=== PATIENT | female | born 1945 | race African-American/Black ===

== ENCOUNTER 2017-02-20 09:00 | Emergency (ER) | payer MEDICARE ==
[2017-02-20 09:10] VITALS: TEMP 98; BMI 40.3
[2017-02-20] MEDS ORDERED: predniSONE 20 MG TABLET (UD) PO ONE (09:52)
[2017-02-20] MEDS ORDERED: ALBUTEROL SO4 0.083% IH SOL 2.5 MG/3 ML VIAL.NEB. NEB ONE (09:52)
[2017-02-20] MEDS ORDERED: SODIUM CHLORIDE 1,000 ML IV STA (09:52)
[2017-02-20] MEDS ORDERED: ACETAMINOPHEN 325 MG TABLET (FP) PO ONE (09:52)
[2017-02-20] MEDS ORDERED: IPRATROPIUM BR 0.02% 0.5 MG/2.5 ML VIAL.NEB. NEB ONE (09:52)
--- NOTE | 2017-02-20 10:13 | PDOC ---
History of Present Illness - General History Source: Patient Exam Limitations: No Limitations - History of Present Illness Initial Comments: 02/20/17 10:24 The patient is a 71 year old female, with a significant past medical history of HTN, HLD, NIDDM, GERD, diverticulitis, CKD, COPD / asthma and AFIB (on Xarelto) , who presents to the emergency department with body cramping for the past 6 months and congestion. She describes her cramping as intermittently diffused throughout her body. She notes that it has worsened since yesterday, now localized on her hands bilaterally. She denies any recent change in her medications. She attributes her congestion to her asthma and seasonal allergies. She denies any exacerbation of her cramping due to her asthma. The patient denies chest pain, shortness of breath, headache and dizziness. Denies fever, chills, nausea, vomit, diarrhea and constipation. Denies dysuria, frequency, urgency and hematuria. Allergies: Shellfish and lactose Past surgical history: Partial hysterectomy Social history: No alcohol, tobacco or drug use reported PMD - Dr. Pam Rodríguez <Chay Currie - Last Filed: 02/20/17 10:36> - General History Source: Patient, Old Records Exam Limitations: No Limitations <Neftali Salmon - Last Filed: 02/20/17 11:55> - General Chief Complaint: Cold Symptoms Stated Complaint: CRAMPING, CONGESTION Time Seen by Provider: 02/20/17 09:39 Past History <Chay Currie - Last Filed: 02/20/17 10:36> - Past Medical History Asthma: Yes Cardiac Disorders: Yes (intermittent atrial fibrillation) COPD: Yes CHF: No Diabetes: Yes GI Disorders: Yes (diverticulitis, and GERD) Disorders: No HTN: Yes Hypercholesterolemia: Yes Suicide Attempt (Hx): No - Surgical History Abdominal Surgery: Yes (partial hysterectomy) Appendectomy: No Cholecystectomy: No - Immunization History Immunization Up to Date: Yes - Psycho/Social/Smoking Cessation Hx Anxiety: No Suicidal Ideation: No Smoking Status: Yes Smoking History: Never smoked Have you smoked in the past 12 months: No Number of Cigarettes Smoked Daily: 0 If you are a former smoker, when did you quit?: Over 45 years ago Information on smoking cessation initiated: No Hx Alcohol Use: No Drug/Substance Use Hx: No Substance Use Type: None Hx Substance Use Treatment: No <Neftali Salmon - Last Filed: 02/20/17 11:55> - Past Medical History Allergies/Adverse Reactions: Allergies Allergy/AdvReac Type Severity Reaction Status Date / Time shellfish derived Allergy Severe Swelling Verified 02/20/17 09:07 lactose Allergy Mild Verified 02/20/17 09:07 Home Medications: Ambulatory Orders Aspirin [ASA -] 81 mg PO DAILY 05/16/12 Montelukast Na [Singulair -] 10 mg PO HS 05/16/12 Amiodarone HCl [Cordarone -] 100 mg PO DAILY #1 11/22/12 Glimepiride [Amaryl -] 2 mg PO DAILY 09/27/13 Multivitamin [Multivitamins] 1 each PO DAILY 12/13/13 Levalbuterol HCl [Xopenex] 0.31 mg IH PRN PRN #0 vial.neb. 12/16/13 Albuterol 0.083% Nebulizer Patricia [Ventolin 0.083% Nebulizer Soln -] 1 neb NEB PRN 03/07/16 Fluticasone Propionate [Flovent Diskus] 250 mcg IH DAILY 03/07/16 Rivaroxaban [Xarelto -] 20 mg PO DAILY 03/07/16 Simvastatin [Zocor -] 20 mg PO HS 03/07/16 Bimatoprost [Lumigan] 1 drop OS HS 09/20/16 Garlic [Odorless Garlic] 1,000 mg PO DAILY 09/20/16 Losartan/Hydrochlorothiazide [Losartan-Hctz 100-25 mg Tab] 1 each PO DAILY 09/20 Albuterol Sulfate Inhaler - [Ventolin HFA Inhaler -] 1 - 2 inh PO Q4H PRN #1 inhaler 02/20/17 Amlodipine Besylate 5 mg PO DAILY 02/20/17 Prednisone [Deltasone] 60 mg PO DAILY #12 tablet 02/20/17 Review of Systems - Review of Systems Able to Perform ROS?: Yes Comments:: 02/20/17 10:25 GENERAL/CONSTITUTIONAL: (+) Body cramping. No fever or chills. No weakness. HEAD, EYES, EARS, NOSE AND THROAT: No change in vision. No ear pain or discharge. No sore throat. CARDIOVASCULAR: No chest pain or shortness of breath RESPIRATORY: (+) Congestion) No cough, wheezing, or hemoptysis. GASTROINTESTINAL: No nausea, vomiting, diarrhea or constipation. GENITOURINARY: No dysuria, frequency, or change in urination. MUSCULOSKELETAL: No joint or muscle swelling or pain. No neck or back pain. SKIN: No rash NEUROLOGIC: No headache, vertigo, loss of consciousness, or change in strength/ sensation. ENDOCRINE: No increased thirst. No abnormal weight change HEMATOLOGIC/LYMPHATIC: No anemia, easy bleeding, or history of blood clots. ALLERGIC/IMMUNOLOGIC: No hives or skin allergy. <Chay Currie - Last Filed: 02/20/17 10:36> *Physical Exam - Vital Signs Last Vital Signs Temp Pulse Resp BP Pulse Ox 98 F 65 18 151/81 99 02/20/17 09:07 02/20/17 09:07 02/20/17 09:07 02/20/17 09:07 02/20/17 09:07 - Physical Exam Comments: 02/20/17 10:25 GENERAL: Awake, alert, and fully oriented, in no acute distress HEAD: No signs of trauma, normocephalic, atraumatic EYES: PERRLA, EOMI, sclera anicteric, conjunctiva clear ENT: Auricles normal inspection, hearing grossly normal, nares patent, oropharynx clear without exudates. Moist mucosa NECK: Normal ROM, supple, no lymphadenopathy, JVD, or masses LUNGS: (+) Mild expiratory wheezing. No distress, speaks full sentences. HEART: Regular rate and rhythm, normal S1 and S2, no murmurs, rubs or gallops, peripheral pulses normal and equal bilaterally. ABDOMEN: Soft, nontender, normoactive bowel sounds. No guarding, no rebound. No masses EXTREMITIES: Normal inspection, Normal range of motion, no edema. No clubbing or cyanosis. NEUROLOGICAL: Cranial nerves II through XII grossly intact. Normal speech, normal gait, no focal sensorimotor deficits SKIN: Warm, Dry, normal turgor, no rashes or lesions noted. <Chay Currie - Last Filed: 02/20/17 10:36> - Vital Signs Last Vital Signs Temp Pulse Resp BP Pulse Ox 98 F 65 18 151/81 99 02/20/17 09:07 02/20/17 09:07 02/20/17 09:07 02/20/17 09:07 02/20/17 09:07 <Neftali Salmon - Last Filed: 02/20/17 11:55> Heart Score/ECG Review #1 ECG reviewed & interpreted by me at: 10:25 02/20/17 10:33 NSR 58, no std/malina, normal axis, normal intervals, no TWI, QTC 447 msec <Neftali Salmon - Last Filed: 02/20/17 11:55> ED Treatment Course - RADIOLOGY Radiograph Interpretation: 02/20/17 10:37 Chest X-Ray Reviewed by: Dr. Nick Majano Impression: No evidence of pneumonia, CHF or pneumothorax. Limited evaluation of the lung parenchyma in the left retrocardiac region. - Medications Given in the ED: ED Medications Discontinued Medications Generic Name Dose Route Start Last Admin Trade Name Freq PRN Reason Stop Dose Admin Acetaminophen 650 mg 02/20/17 09:52 02/20/17 10:06 Tylenol - PO 02/20/17 09:53 650 mg ONCE ONE Administration Albuterol Sulfate 1 amp 02/20/17 09:52 02/20/17 09:56 Ventolin 0.083% Nebulizer Soln - NEB 02/20/17 09:53 1 amp ONCE ONE Administration Ipratropium [place] 1 amp 02/20/17 09:52 02/20/17 09:56 Atrovent 0.02% Nebulizer - NEB 02/20/17 09:53 1 amp ONCE ONE Administration <Chay Currie - Last Filed: 02/20/17 10:36> - LABORATORY CBC & Chemistry Diagram: 02/20/17 10:24 02/20/17 10:24 - RADIOLOGY Radiology Studies Ordered: Category Date Time Status CHEST X-RAY PORTABLE* [RAD] Stat Radiology 02/20/17 09:52 Ordered - Medications Given in the ED: ED Medications Discontinued Medications Generic Name Dose Route Start Last Admin Trade Name Freq PRN Reason Stop Dose Admin Acetaminophen 650 mg 02/20/17 09:52 02/20/17 10:06 Tylenol - PO 02/20/17 09:53 650 mg ONCE ONE Administration Albuterol Sulfate 1 amp 02/20/17 09:52 02/20/17 09:56 Ventolin 0.083% Nebulizer Soln - NEB 02/20/17 09:53 1 amp ONCE ONE Administration Ipratropium [place] 1 amp 02/20/17 09:52 02/20/17 09:56 Atrovent 0.02% Nebulizer - NEB 02/20/17 09:53 1 amp ONCE ONE Administration <Neftali Salmon - Last Filed: 02/20/17 11:55> Medical Decision Making - Medical Decision Making 02/20/17 10:13 A portion of this note was documented by scribe services under my direction. I have reviewed the details of the note, within reason, and agree with the documentation with the following case summary and management plan written by me. Patient treated in the ED. Nursing notes are reviewed and incorporated into the medical decision-making. Vital signs reviewed. Peripheral IV access obtained by the nurse, laboratory studies are drawn and sent, reviewed and interpreted by myself. Vital Signs Temp Pulse Resp BP Pulse Ox 98 F 65 18 151/81 99 02/20/17 09:07 02/20/17 09:07 02/20/17 09:07 02/20/17 09:07 02/20/17 09:07 71 year old female with past medical history of hypertension, diabetes, hyperlipidemia, atrial fibrillation on his xarleto and amiodarone, asthma, arthritis presents with worsening total body cramps. Patient has a chronic history of total body cramping over the last 6 months that has progressively worsened in the last 2 days. Patient states that she is also concurrently having some wheezing from ALLERGIES secondary to her asthma. She has not taken any medications. She is not taking any medications for her cramping either. She reports it like a [email or web address] horse cramping pain. She has seen her primary care physician in the past but reports there was no acute interventions at that time. She denies chest pain, fevers, nausea, vomiting, diarrhea. Patient is having chronic pain that has acutely worsened. Her cramping may be secondary to touch like dysfunction or dehydration. We'll give Tylenol, IV fluids and check labs. Also noted is patient's wheezing. We'll give nebulizers, prednisone and obtain chest x-ray and reassess. 02/20/17 11:45 CBC, BMP 02/20/17 10:24 02/20/17 10:24 CMP Sodium 142 mmol/L (136-145) 02/20/17 10:24 Potassium 3.7 mmol/L (3.5-5.1) 02/20/17 10:24 Chloride 101 mmol/L (98-107) 02/20/17 10:24 Carbon Dioxide 31 mmol/L (21-32) 02/20/17 10:24 Anion Gap 10 (8-16) 02/20/17 10:24 BUN 17 mg/dL (7-18) 02/20/17 10:24 Creatinine 1.0 mg/dL (0.55-1.02) 02/20/17 10:24 Creat Clearance w eGFR 54.97 (>60) 02/20/17 10:24 Random Glucose 114 mg/dL (74-106) H 02/20/17 10:24 Calcium 8.9 mg/dL (8.5-10.1) 02/20/17 10:24 Magnesium 2.2 mg/dL (1.8-2.4) 02/20/17 10:24 Total Bilirubin 0.5 mg/dL (0.2-1.0) D 02/20/17 10:24 AST 15 U/L (15-37) 02/20/17 10:24 ALT 21 U/L (12-78) 02/20/17 10:24 Alkaline Phosphatase 61 U/L (45-117) 02/20/17 10:24 Creatine Kinase 245 IU/L (26-192) H D 02/20/17 10:24 CK-MB (CK-2) 1.115 ng/ml (0.5-3.6) 02/20/17 10:24 Troponin I 0.03 ng/ml (0.00-0.05) 02/20/17 10:24 Total Protein 6.8 g/dl (6.4-8.2) 02/20/17 10:24 Albumin 3.4 g/dl (3.4-5.0) 02/20/17 10:24 Patient's EKG, chest x-ray, lasting history no acute findings. We have discussed potential options such as her statins as being a potential source of her cramping. I advised patient to follow up with her primary care doctor regards to her medication interactions. Patient appears more comfortable with the IV fluids and Tylenol. At this time, we'll discharge his acute on chronic cramping pain. Patient otherwise understands and agrees with plan. Her wheezing improved as well. Will discharge with prednisone and albuterol. I discussed the physical exam findings, ancillary test results and final diagnoses with the patient. I answered all of the patient's questions. The patient was satisfied with the care received and felt comfortable with the discharge plan and treatment plan. The patient will call their primary care physician within 24 hours to arrange follow-up and will return to the Emergency Department with any new, persistant or worsening symptoms. 02/20/17 11:50 <Neftali Salmon - Last Filed: 02/20/17 11:55> *DC/Admit/Observation/Transfer - Attestations Scribe Attestion: 02/20/17 10:25 Documentation prepared by Chay Currie, acting as medical terminologist for Neftali Salmon MD <Chay Currie - Last Filed: 02/20/17 10:36> - Discharge Dispostion Admit: No <Neftali Salmon - Last Filed: 02/20/17 11:55> Diagnosis at time of Disposition: Cramping of hands Asthma Qualifiers: Asthma severity: unspecified severity Asthma complication type: with acute exacerbation Qualified Code(s): J45.901 - Unspecified asthma with (acute) exacerbation - Discharge Dispostion Disposition: HOME Condition at time of disposition: Stable - Prescriptions Prescriptions: Prednisone [Deltasone] 60 mg PO DAILY #12 tablet Albuterol Sulfate Inhaler - [Ventolin HFA Inhaler -] 1 - 2 inh PO Q4H PRN #1 inhaler PRN Reason: Wheezing - Referrals Referrals: Pam Dejesus MD [Primary Care Provider] - - Patient Instructions Printed Discharge Instructions: DI for Musculoskeletal Pain, DI for Asthma -- Adult Additional Instructions: Please drink plenty fluids and rest. Please review your medication lists with your doctor. Your EKG, blood work demonstrates no findings.
[2017-02-20 10:52] LABS: BASOPHIL 1.2 % (0-2.0); EOSINOPHIL 7.6 % (0-4.5); MCH 30.6 pg (25.7-33.7); MCHC 32.6 g/dl (32.0-36.0); MEAN CELL VOLUME 93.9 fl (80-96); MEAN PLT VOLUME 8.3 fl (7.5-11.1); NEUTROPHILS 57.7 % (42.8-82.8); PLATELET COUNT 221 K/MM3 (134-434); RDW 14.9 % (11.6-15.6); WHITE BLOOD COUNT 8.1 K/mm3 (4.0-10.0)
[2017-02-20 11:12] LABS: ALBUMIN 3.4 g/dl (3.4-5.0); CALCIUM 8.9 mg/dL (8.5-10.1); COCKROFT - GAULT 95.047; MAGNESIUM 2.2 mg/dL (1.8-2.4)
[2017-02-20 11:16] LABS: BILIRUBIN,TOTAL 0.5 mg/dL (0.2-1.0); TOT PROT 6.8 g/dl (6.4-8.2); TROPONIN I 0.03 ng/ml (0.00-0.05)
[2017-02-20 12:10] VITALS: BP 135/72; PULSE 67
--- NOTE | 2017-02-20 13:59 | EKG ---
Test Reason : Blood Pressure : / mmHG Vent. Rate : 058 BPM Atrial Rate : 058 BPM P-R Int : 158 ms QRS Dur : 090 ms QT Int : 456 ms P-R-T Axes : 049 -01 025 degrees QTc Int : 447 ms SINUS BRADYCARDIA OTHERWISE NORMAL ECG WHEN COMPARED WITH ECG OF 12-OCT-2016 07:36, NO SIGNIFICANT CHANGE WAS FOUND Confirmed by KEILY GENAO MD ([id number]) on 02/20/2017 1:58:55 PM Referred By: Confirmed By:KEILY GENAO MD
== END 2017-02-20 12:09 | disposition home or self-care (01) ==
LOC: JER 09:00
PROC: 3E0337Z Introduction of Electrolytic and Water Balance Substance into Peripheral Vein, Percutaneous Approach (ICD-10-PCS; principal; 2017-02-20)
PROC: 3E0F7GC Introduction of Other Therapeutic Substance into Respiratory Tract, Via Natural or Artificial Opening (ICD-10-PCS; 2017-02-20)
PROC: 3E0F7GC Introduction of Other Therapeutic Substance into Respiratory Tract, Via Natural or Artificial Opening (ICD-10-PCS; 2017-02-20)
DX: R25.2 Cramp and spasm (principal); J45.901 Unspecified asthma with (acute) exacerbation; E78.00 Pure hypercholesterolemia, unspecified; E11.9 Type 2 diabetes mellitus without complications; Z79.84 Long term (current) use of oral hypoglycemic drugs; K21.9 Gastro-esophageal reflux disease without esophagitis; N18.9 Chronic kidney disease, unspecified; J44.9 Chronic obstructive pulmonary disease, unspecified; I48.91 Unspecified atrial fibrillation; Z79.01 Long term (current) use of anticoagulants; I12.9 Hypertensive chronic kidney disease with stage 1 through stage 4 chronic kidney disease, or unspecified chronic kidney disease
CPT/HCPCS: 36415; 71010-TC; 80053; 82550; 82553; 83735; 84484; 85025; 93005; 93010; 94640; 96360; 99283-25

== ENCOUNTER → 2017-05-13 | Emergency (ER) | payer MEDICARE ==
[~2017-05-13] MED LIST: ALBUTEROL SO4 2.5/IPRATROPIUM 0.5 INH SOL 3 ML VIAL.NEB. NEB ONE; ONDANSETRON 4 MG/2 ML VIAL IVPUSH ONE; SODIUM CHLORIDE 1,000 ML IV STA
[2017-05-13 17:36] VITALS: BP 149/76; PULSE 67; TEMP 98.1; BMI 41.9
--- NOTE | 2017-05-13 18:12 | PDOC ---
History of Present Illness - General History Source: Patient, Family Exam Limitations: No Limitations - History of Present Illness Initial Comments: 05/13/17 18:58 The patient is a 72 year old female, with significant past medical history of hypertension, hyperlipidemia, NIDDM, GERD, diverticulitis, chronic kidney disease, COPD, asthma, and Afib (on Xarelto), who presents today complaining of a couple of days of intermittent muscle and body aches. The patient describes the aches as a crampy feeling starting from her neck to her toes. She notes that the aches became constant since noon today, approximately 6 hours ago. The patient took magnesium and potassium this afternoon with mild relief. The patient also notes that her asthma has been acting up and she has a productive cough with clear mucous. She reports RUQ abdominal cramping and notes that she experienced some nausea and vomiting last week, which had since resolved. She explains that the body aches are an ongoing issue that has been addressed by her PCP, Dr. Pam Rodríguez, who took her off Simvastatin for 3 weeks. This provided no relief and the patient resumed taking the Simvastatin. Denies fever, chills, nausea, vomiting. Denies chest pain, palpitations. Denies urinary changes. Denies skin rashes Allergies: shellfish, lactose Surgical Hx: partial hysterectomy Social Hx: No tobacco use. No alcohol use. No recreational drug use. PCP- Dr. Pam Rodríguez Documentation Writer: Dr. [place] 05/13/17 19:00 <Domenica Coelho - Last Filed: 05/13/17 19:00> <Tiffanie Mcintosh - Last Filed: 05/14/17 03:02> <Yasmin Alvarado - Last Filed: 05/14/17 23:45> - General Chief Complaint: Muscle Cramping Stated Complaint: BODY CRAMPS Time Seen by Provider: 05/13/17 17:57 Past History <Domenica Coelho - Last Filed: 05/13/17 19:00> <Tiffanie Mcintosh - Last Filed: 05/14/17 03:02> - Past Medical History Asthma: Yes Cardiac Disorders: Yes (intermittent atrial fibrillation) COPD: Yes CHF: No Diabetes: Yes GI Disorders: Yes (diverticulitis, and GERD) Disorders: No HTN: Yes Hypercholesterolemia: Yes Suicide Attempt (Hx): No - Surgical History Abdominal Surgery: Yes (partial hysterectomy) Appendectomy: No Cholecystectomy: No - Immunization History Immunization Up to Date: Yes - Psycho/Social/Smoking Cessation Hx Anxiety: No Suicidal Ideation: No Smoking Status: Yes Smoking History: Former smoker Have you smoked in the past 12 months: No Number of Cigarettes Smoked Daily: 0 If you are a former smoker, when did you quit?: Over 45 years ago Information on smoking cessation initiated: No Hx Alcohol Use: No Drug/Substance Use Hx: No Substance Use Type: None Hx Substance Use Treatment: No <Yasmin Alvarado - Last Filed: 05/14/17 23:45> - Past Medical History Allergies/Adverse Reactions: Allergies Allergy/AdvReac Type Severity Reaction Status Date / Time shellfish derived Allergy Severe Swelling Verified 05/13/17 17:33 lactose Allergy Mild Verified 05/13/17 17:33 Home Medications: Ambulatory Orders Aspirin [ASA -] 81 mg PO DAILY 05/16/12 Montelukast Na [Singulair -] 10 mg PO HS 05/16/12 Amiodarone HCl [Cordarone -] 100 mg PO DAILY #1 11/22/12 Glimepiride [Amaryl -] 4 mg PO DAILY 09/27/13 Multivitamin [Multivitamins] 1 each PO DAILY 12/13/13 Levalbuterol HCl [Xopenex] 0.31 mg IH PRN PRN #0 vial.neb. 12/16/13 Albuterol 0.083% Nebulizer Patricia [Ventolin 0.083% Nebulizer Soln -] 1 neb NEB PRN 03/07/16 Fluticasone Propionate [Flovent Diskus] 250 mcg IH DAILY 03/07/16 Rivaroxaban [Xarelto -] 20 mg PO DAILY 03/07/16 Simvastatin [Zocor -] 20 mg PO HS 03/07/16 Bimatoprost [Lumigan] 1 drop OS HS 09/20/16 Garlic [Odorless Garlic] 1,000 mg PO DAILY 09/20/16 Losartan/Hydrochlorothiazide [Losartan-Hctz 100-25 mg Tab] 1 each PO DAILY 09/20 Albuterol Sulfate Inhaler - [Ventolin HFA Inhaler -] 1 - 2 inh PO Q4H PRN #1 inhaler 02/20/17 Amlodipine Besylate 5 mg PO DAILY 02/20/17 Prednisone [Deltasone] 60 mg PO DAILY #12 tablet 02/20/17 Review of Systems - Review of Systems Able to Perform ROS?: Yes Comments:: 05/13/17 18:58 GENERAL/CONSTITUTIONAL: No fever or chills. No weakness. HEAD, EYES, EARS, NOSE AND THROAT: No change in vision. No ear pain or discharge. No sore throat. CARDIOVASCULAR: No chest pain or shortness of breath. RESPIRATORY: +productive cough with clear sputum. No wheezing, or hemoptysis. GASTROINTESTINAL: +RUQ abdominal cramping. No nausea, vomiting, diarrhea or constipation. GENITOURINARY: No dysuria, frequency, or change in urination. MUSCULOSKELETAL: +diffuse muscle and body aches. SKIN: No rash NEUROLOGIC: No headache, vertigo, loss of consciousness, or change in strength/ sensation. ENDOCRINE: No increased thirst. No abnormal weight change. HEMATOLOGIC/LYMPHATIC: No anemia, easy bleeding, or history of blood clots. ALLERGIC/IMMUNOLOGIC: No hives or skin allergy. <Domenica Coelho - Last Filed: 05/13/17 19:00> *Physical Exam - Vital Signs Last Vital Signs Temp Pulse Resp BP Pulse Ox 98.1 F 67 18 149/76 100 05/13/17 17:33 05/13/17 17:33 05/13/17 17:33 05/13/17 17:33 05/13/17 17:33 <Domenica Coelho - Last Filed: 05/13/17 19:00> - Vital Signs Last Vital Signs Temp Pulse Resp BP Pulse Ox 98.1 F 67 18 149/76 100 05/13/17 17:33 05/13/17 17:33 05/13/17 17:33 05/13/17 17:33 05/13/17 17:33 <Tiffanie Mcintosh - Last Filed: 05/14/17 03:02> - Vital Signs Last Vital Signs Temp Pulse Resp BP Pulse Ox 98.1 F 67 18 149/76 100 05/13/17 17:33 05/13/17 17:33 05/13/17 17:33 05/13/17 17:33 05/13/17 17:33 - Physical Exam Comments: GENERAL: Awake, alert, and fully oriented, in no acute distress. Obese. HEAD: No signs of trauma EYES: PERRLA, EOMI, sclera anicteric, conjunctiva clear ENT: Auricles normal inspection, hearing grossly normal, nares patent, oropharynx clear without exudates. Moist mucosa NECK: Normal ROM, supple, no lymphadenopathy, JVD, or masses LUNGS: Breath sounds equal, clear to auscultation bilaterally. No wheezes, and no crackles HEART: Regular rate and rhythm, normal S1 and S2, no murmurs, rubs or gallops ABDOMEN: Soft, nontender, normoactive bowel sounds. No guarding, no rebound. No masses EXTREMITIES: Normal range of motion, no edema. No clubbing or cyanosis. No cords, erythema. Mild B/L calf tenderness (chronic and unchanged per patient). NEUROLOGICAL: Cranial nerves II through XII grossly intact. Normal speech, normal gait SKIN: Warm, Dry, normal turgor, no rashes or lesions noted. <Yasmin Alvarado - Last Filed: 05/14/17 23:45> ED Treatment Course - LABORATORY CBC & Chemistry Diagram: 05/13/17 18:42 05/13/17 18:42 <Domenica Coelho - Last Filed: 05/13/17 19:00> - LABORATORY CBC & Chemistry Diagram: 05/13/17 18:42 05/14/17 01:55 - ADDITIONAL ORDERS Additional order review: Laboratory Results 05/14/17 05/14/17 05/13/17 01:55 01:55 21:13 Sodium 142 Potassium 4.1 Chloride 103 Carbon Dioxide 30 Anion Gap 9 BUN 13 D Creatinine 0.9 Creat Clearance w eGFR Random Glucose 180 H D Calcium 8.3 L Magnesium Total Bilirubin AST ALT Alkaline Phosphatase Creatine Kinase 862 H Creatine Kinase Index 0.2 CK-MB (CK-2) 2.155 Total Protein Albumin TSH Urine Color Lt. yellow Urine Appearance Clear Urine pH 5.5 Urine Protein Negative Urine Glucose (UA) Negative Urine Ketones Negative Urine Blood Negative Urine Nitrite Negative Urine Bilirubin Negative Urine Urobilinogen 0.2 Ur Leukocyte Esterase Negative 05/13/17 18:42 Sodium 138 Potassium 3.5 Chloride 100 Carbon Dioxide 31 Anion Gap 7 L BUN 17 Creatinine 1.0 Creat Clearance w eGFR 54.81 Random Glucose 100 Calcium 9.2 Magnesium 2.3 Total Bilirubin 0.4 AST 17 ALT 23 Alkaline Phosphatase 72 Creatine Kinase 1008 H Creatine Kinase Index 0.2 CK-MB (CK-2) 2.474 Total Protein 7.4 Albumin 3.7 TSH 0.95 Urine Color Urine Appearance Urine pH Urine Protein Urine Glucose (UA) Urine Ketones Urine Blood Urine Nitrite Urine Bilirubin Urine Urobilinogen Ur Leukocyte Esterase 05/13/17 18:42 RBC 4.33 MCV 90.2 MCHC 33.2 RDW 15.2 MPV 8.7 Neutrophils % 67.2 Lymphocytes % 18.5 Monocytes % 11.1 H Eosinophils % 2.5 Basophils % 0.7 - Medications Given in the ED: ED Medications Discontinued Medications Generic Name Dose Route Start Last Admin Trade Name Freq PRN Reason Stop Dose Admin Albuterol/Ipratropium 1 amp 05/13/17 21:15 05/13/17 22:00 Duoneb - NEB 05/13/17 21:46 1 amp Q15M TIFFANY Administration Sodium Chloride 1,000 mls @ 1,000 mls/hr 05/13/17 19:51 05/13/17 20:05 Normal Saline - IV 05/13/17 20:50 1,000 mls/hr ASDIR STA Administration Sodium Chloride 1,000 mls @ 1,000 mls/hr 05/13/17 20:16 05/13/17 23:51 Normal Saline - IV 05/13/17 21:15 1,000 mls/hr ASDIR STA Administration Ondansetron HCl 4 mg 05/14/17 00:41 05/14/17 01:20 Zofran Injection IVPUSH 05/14/17 00:42 Not Given ONCE ONE <Tiffanie Mcintosh - Last Filed: 05/14/17 03:02> - LABORATORY CBC & Chemistry Diagram: 05/13/17 18:42 05/14/17 01:55 <Yasmin Alvarado - Last Filed: 05/14/17 23:45> Medical Decision Making - Medical Decision Making 05/14/17 02:[address] Mcintosh, will f/u repeat CK and chemistries. If improved, DC home, hold zocor. <Yasmin Alvarado - Last Filed: 05/14/17 23:45> *DC/Admit/Observation/Transfer - Attestations Scribe Attestion: 05/13/17 18:59 Documentation prepared by KRISTEL Chacon, acting as medical cash poster for Yasmin Alvarado MD. <Domenica Coelho - Last Filed: 05/13/17 19:00> <Tiffanie Mcintosh - Last Filed: 05/14/17 03:02> <Yasmin Alvarado - Last Filed: 05/14/17 23:45> Diagnosis at time of Disposition: Rhabdomyolysis Qualifiers: Rhabdomyolysis type: non-traumatic Qualified Code(s): M62.82 - Rhabdomyolysis - Discharge Dispostion Disposition: HOME Condition at time of disposition: Stable - Referrals Referrals: Pam Dejesus MD [Primary Care Provider] - - Patient Instructions Printed Discharge Instructions: Rhabdomyolysis
[2017-05-13 18:57] LABS: BASOPHIL 0.7 % (0-2.0); EOSINOPHIL 2.5 % (0-4.5); MCH 29.9 pg (25.7-33.7); MCHC 33.2 g/dl (32.0-36.0); MEAN CELL VOLUME 90.2 fl (80-96); MEAN PLT VOLUME 8.7 fl (7.5-11.1); NEUTROPHILS 67.2 % (42.8-82.8); PLATELET COUNT 255 K/MM3 (134-434); RDW 15.2 % (11.6-15.6); WHITE BLOOD COUNT 12.2 K/mm3 (4.0-10.0)
[2017-05-13 19:26] LABS: ALBUMIN 3.7 g/dl (3.4-5.0); ANION GAP 7 (8-16); BILIRUBIN,TOTAL 0.4 mg/dL (0.2-1.0); CALCIUM 9.2 mg/dL (8.5-10.1); CO2 31 mmol/L (21-32); GLUCOSE,RANDOM 100 mg/dL (74-106); MAGNESIUM 2.3 mg/dL (1.8-2.4); SGOT/AST 17 U/L (15-37); SGPT/ALT 23 U/L (12-78); TOT PROT 7.4 g/dl (6.4-8.2)
[2017-05-13 19:38] LABS: ALK PHOS 72 U/L (45-117); CPK 1008 IU/L (26-192); THYROID STIMULATING HORMONE 0.95 uIU/ml (0.358-3.74)
[2017-05-13] MEDS: ALBUTEROL SO4 2.5/IPRATROPIUM 0.5 INH SOL 3 ML VIAL.NEB. NEB SCH ×3 (21:22→22:00)
[2017-05-13 21:48] LABS: PH,URINE 5.5 (5.0-8.0); URINE APPEARANCE CLEAR; URINE BILIRUBIN NEGATIVE (NEGATIVE); URINE BLOOD NEGATIVE (NEGATIVE); URINE COLOR LT. YELLOW; URINE GLUCOSE (UA) NEGATIVE (NEGATIVE); URINE KETONE NEGATIVE (NEGATIVE); URINE LEUK ESTERASE NEGATIVE (NEGATIVE); URINE NITRITE NEGATIVE (NEGATIVE); URINE PROTEIN NEGATIVE (NEGATIVE); URINE UROBILINOGEN 0.2 mg/dL (0.2-1.0)
[2017-05-14 02:19] LABS: ANION GAP 9 (8-16); CALCIUM 8.3 mg/dL (8.5-10.1); CO2 30 mmol/L (21-32); CREATININE 0.9 mg/dL (0.55-1.02); GLUCOSE,RANDOM 180 mg/dL (74-106)
--- NOTE | 2017-05-14 13:26 | EKG ---
Test Reason : Blood Pressure : / mmHG Vent. Rate : 060 BPM Atrial Rate : 060 BPM P-R Int : 170 ms QRS Dur : 090 ms QT Int : 466 ms P-R-T Axes : 047 -04 030 degrees QTc Int : 466 ms NORMAL SINUS RHYTHM POSSIBLE LEFT ATRIAL ENLARGEMENT BORDERLINE ECG WHEN COMPARED WITH ECG OF 20-FEB-2017 10:25, NO SIGNIFICANT CHANGE WAS FOUND Confirmed by KHOI HUBER MD ([id number]) on 05/14/2017 1:26:15 PM Referred By: Confirmed By:KHOI HUBER MD
== END | disposition home or self-care (01) ==
LOC: JER 17:26
PROC: 3E0F7GC Introduction of Other Therapeutic Substance into Respiratory Tract, Via Natural or Artificial Opening (ICD-10-PCS; principal; 2017-05-13)
PROC: 3E0337Z Introduction of Electrolytic and Water Balance Substance into Peripheral Vein, Percutaneous Approach (ICD-10-PCS; 2017-05-13)
DX: M62.82 Rhabdomyolysis (principal); I10 Essential (primary) hypertension; E78.5 Hyperlipidemia, unspecified; K21.9 Gastro-esophageal reflux disease without esophagitis; E11.9 Type 2 diabetes mellitus without complications; J44.9 Chronic obstructive pulmonary disease, unspecified; I48.91 Unspecified atrial fibrillation; J45.909 Unspecified asthma, uncomplicated; Z87.891 Personal history of nicotine dependence; Z79.82 Long term (current) use of aspirin
CPT/HCPCS: 36415; 80048; 80053; 81003; 82553; 83735; 84443; 85025; 93005; 93010; 99284-25

== ENCOUNTER 2017-07-09 20:55 | Emergency (ER) | payer MEDICARE ==
[2017-07-09 21:19] VITALS: BMI 40.3
--- NOTE | 2017-07-09 21:50 | PDOC ---
History of Present Illness - General History Source: Patient Exam Limitations: No Limitations - History of Present Illness Initial Comments: 07/09/17 22:30 The patient is a 72-year-old female with a significant past medical history of HTN, HLD, NIDDM, asthma, COPD, A-fib, CHF, chronic kidney disease, GERD, diverticulitis, who presents to the emergency department with dizziness since 8pm today. She reports she was sitting and felt like she was going to pass out . She states she woke up this morning with palpitations, but not upon interview. She reports she has had cold symptoms and a cough for 1 week and was put on amoxicillin before switching to Levaquin 250 by her doctor. She also notes swelling and pain to her lower extremities, left worse than right. She states she flew to [place] recently. The patient denies chest pain, shortness of breath, diaphoresis, and headache. The patient denies fever, chills, nausea, vomit, diarrhea and constipation. The patient denies dysuria, frequency, urgency and hematuria. Allergies: shellfish, lactose Past Surgical History: partial hysterectomy Social History: No toxic habits reported PCP: Dr. 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 [place] <Gypsy Landa - Last Filed: 07/09/17 22:30> <Tiffanie Mcintosh - Last Filed: 07/10/17 00:50> - General Chief Complaint: Weakness Stated Complaint: FATIGUE Time Seen by Provider: 07/09/17 21:28 Past History <Gypsy Landa - Last Filed: 07/09/17 22:30> - Past Medical History Asthma: Yes Cardiac Disorders: Yes (intermittent atrial fibrillation) COPD: Yes CHF: No Diabetes: Yes GI Disorders: Yes (diverticulitis, and GERD) Disorders: No HTN: Yes Hypercholesterolemia: Yes - Surgical History Abdominal Surgery: Yes (partial hysterectomy) Appendectomy: No Cholecystectomy: No - Immunization History Immunization Up to Date: Yes - Suicide/Smoking/Psychosocial Hx Smoking Status: Yes Smoking History: Never smoked Have you smoked in the past 12 months: No Number of Cigarettes Smoked Daily: 0 If you are a former smoker, when did you quit?: Over 45 years ago Information on smoking cessation initiated: No Hx Alcohol Use: No Drug/Substance Use Hx: No Substance Use Type: None Hx Substance Use Treatment: No <Tiffanie Mcintosh - Last Filed: 07/10/17 00:50> - Past Medical History Allergies/Adverse Reactions: Allergies Allergy/AdvReac Type Severity Reaction Status Date / Time shellfish derived Allergy Severe Swelling Verified 07/09/17 21:14 lactose Allergy Mild Verified 07/09/17 21:14 Home Medications: Ambulatory Orders Aspirin [ASA -] 81 mg PO DAILY 05/16/12 Montelukast Na [Singulair -] 10 mg PO HS 05/16/12 Amiodarone HCl [Cordarone -] 100 mg PO DAILY #1 11/22/12 Glimepiride [Amaryl -] 4 mg PO DAILY 09/27/13 Multivitamin [Multivitamins] 1 each PO DAILY 12/13/13 Levalbuterol HCl [Xopenex] 0.31 mg IH PRN PRN #0 vial.neb. 12/16/13 Albuterol 0.083% Nebulizer Patricia [Ventolin 0.083% Nebulizer Soln -] 1 neb NEB PRN 03/07/16 Fluticasone Propionate [Flovent Diskus] 250 mcg IH DAILY 03/07/16 Rivaroxaban [Xarelto -] 20 mg PO DAILY 03/07/16 Simvastatin [Zocor -] 20 mg PO HS 03/07/16 Bimatoprost [Lumigan] 1 drop OS HS 09/20/16 Garlic [Odorless Garlic] 1,000 mg PO DAILY 09/20/16 Losartan/Hydrochlorothiazide [Losartan-Hctz 100-25 mg Tab] 1 each PO DAILY 09/20 Albuterol Sulfate Inhaler - [Ventolin HFA Inhaler -] 1 - 2 inh PO Q4H PRN #1 inhaler 02/20/17 Amlodipine Besylate 5 mg PO DAILY 02/20/17 Prednisone [Deltasone] 60 mg PO DAILY #12 tablet 02/20/17 Review of Systems - Review of Systems Able to Perform ROS?: Yes Comments:: 07/09/17 22:30 GENERAL/CONSTITUTIONAL: No fever or chills. No weakness. HEAD, EYES, EARS, NOSE AND THROAT: No change in vision. No ear pain or discharge. No sore throat. CARDIOVASCULAR: No chest pain or shortness of breath. RESPIRATORY: (+) Cough. No wheezing or hemoptysis. GASTROINTESTINAL: No nausea, vomiting, diarrhea or constipation. GENITOURINARY: No dysuria, frequency, or change in urination. MUSCULOSKELETAL: (+) Lower extremity swelling and pain. No neck or back pain. SKIN: No rash NEUROLOGIC: (+) Dizziness. No headache, vertigo, loss of consciousness, or change in strength/sensation. ENDOCRINE: No increased thirst. No abnormal weight change. HEMATOLOGIC/LYMPHATIC: No anemia, easy bleeding, or history of blood clots. ALLERGIC/IMMUNOLOGIC: No hives or skin allergy. <CordellGypsy - Last Filed: 07/09/17 22:30> *Physical Exam - Vital Signs Last Vital Signs Temp Pulse Resp BP Pulse Ox 98.6 F 67 19 120/72 97 07/09/17 21:14 07/09/17 21:14 07/09/17 21:14 07/09/17 21:14 07/09/17 21:14 - Physical Exam Comments: 07/09/17 22:30 GENERAL: Awake, alert, and fully oriented, in no acute distress HEAD: No signs of trauma EYES: PERRLA, EOMI, sclera anicteric, conjunctiva clear ENT: Auricles normal inspection, hearing grossly normal, nares patent, oropharynx clear without exudates. Moist mucosa NECK: Normal ROM, supple, no lymphadenopathy, JVD, or masses LUNGS: (+) Rales at the bilateral bases. (+) Wheezing L>R. No crackles HEART: Regular rate and rhythm, normal S1 and S2, no murmurs, rubs or gallops ABDOMEN: Soft, nontender, normoactive bowel sounds. No guarding, no rebound. No masses EXTREMITIES: (+) 2+ pitting edema up to the calves. Normal range of motion. No clubbing or cyanosis. No cords, erythema, or tenderness NEUROLOGICAL: Cranial nerves II through XII grossly intact. Normal speech SKIN: Warm, Dry, normal turgor, no rashes or lesions noted. <CordellGypsy - Last Filed: 07/09/17 22:30> - Vital Signs Last Vital Signs Temp Pulse Resp BP Pulse Ox 98.6 F 67 19 120/72 97 07/09/17 21:14 07/09/17 21:14 07/09/17 21:14 07/09/17 21:14 07/09/17 21:14 <Tiffanie Mcintosh - Last Filed: 07/10/17 00:50> ED Treatment Course - LABORATORY CBC & Chemistry Diagram: 07/09/17 22:15 07/09/17 22:15 - ADDITIONAL ORDERS Additional order review: 07/09/17 22:15 RBC 4.46 MCV 91.5 MCHC 32.7 RDW 16.0 H MPV 8.8 Neutrophils % 58.3 Lymphocytes % 19.4 Monocytes % 12.8 H Eosinophils % 8.4 H D Basophils % 1.1 <Gypsy Landa - Last Filed: 07/09/17 22:30> - LABORATORY CBC & Chemistry Diagram: 07/09/17 22:15 07/09/17 22:15 <Tiffanie Mcintosh - Last Filed: 07/10/17 00:50> Medical Decision Making - Medical Decision Making 07/09/17 22:25 Pt comes with cough and cold and dizziness and weakness. She states that she was teated with amoxil for a pneumonia then switched to 250mg levaquin. Thereafter her cough remains. She has pitting edema in her legs bilaterally. She is afebrile. Her appetite is intact and she aet a fulldinner and states that she should be feeling wekk, yet feels fatigued. No chest or back pain however. She feels dizzy, but she has no nystagmus and she has no vision changes. 07/10/17 00:50 BNP 900s; pt treated with IV lasix; other labs normal. CXR and EKG normal. Pt will be discharged home. Follow with PMD. <Tiffanie Mcintosh - Last Filed: 07/10/17 00:50> *DC/Admit/Observation/Transfer - Attestations Scribe Attestion: 07/09/17 22:31 Documentation prepared by Gypsy Landa, acting as medical records auditor for Tiffanie Mcintosh MD. <Gypsy Landa - Last Filed: 07/09/17 22:30> - Discharge Dispostion Admit: No <Tiffanie Mcintosh - Last Filed: 07/10/17 00:50> Diagnosis at time of Disposition: Viral syndrome - Discharge Dispostion Disposition: HOME Condition at time of disposition: Stable - Referrals Referrals: Pam Dejesus MD [Primary Care Provider] - - Patient Instructions Printed Discharge Instructions: DI for Viral Syndrome
[2017-07-09 22:20] LABS: BASOPHIL 1.1 % (0-2.0); EOSINOPHIL 8.4 % (0-4.5); MCH 29.9 pg (25.7-33.7); MCHC 32.7 g/dl (32.0-36.0); MEAN CELL VOLUME 91.5 fl (80-96); MEAN PLT VOLUME 8.8 fl (7.5-11.1); NEUTROPHILS 58.3 % (42.8-82.8); PLATELET COUNT 227 K/MM3 (134-434); WHITE BLOOD COUNT 7.1 K/mm3 (4.0-10.0)
[2017-07-09 22:36] LABS: INR 1.21 (0.82-1.09); PROTHROMBIN TIME (PATIENT) 13.4 SEC (9.98-11.88)
[2017-07-09 22:44] LABS: ALBUMIN 3.2 g/dl (3.4-5.0); ANION GAP 9 (8-16); BILIRUBIN,TOTAL 0.2 mg/dL (0.2-1.0); CALCIUM 8.7 mg/dL (8.5-10.1); CO2 28 mmol/L (21-32); CREATININE 1.2 mg/dL (0.55-1.02); GLUCOSE,RANDOM 197 mg/dL (74-106); SGOT/AST 16 U/L (15-37); SGPT/ALT 24 U/L (12-78)
[2017-07-09 22:49] LABS: ALK PHOS 80 U/L (45-117); CPK 126 IU/L (26-192); TROPONIN I 0.03 ng/ml (0.00-0.05)
[2017-07-09] MEDS ORDERED: FUROSEMIDE 40 MG/4 ML INJECTABLE VIAL IVPB ONE (22:56)
[2017-07-09] MEDS ORDERED: ALBUTEROL SO4 2.5/IPRATROPIUM 0.5 INH SOL 3 ML VIAL.NEB. NEB ONE (23:21)
[2017-07-09] MEDS ORDERED: FUROSEMIDE 40 MG/4 ML INJECTABLE VIAL ONE (23:47)
[2017-07-10 00:04] VITALS: BP 125/69; PULSE 99; TEMP 98.8
--- NOTE | 2017-07-10 12:41 | EKG ---
Test Reason : Blood Pressure : / mmHG Vent. Rate : 074 BPM Atrial Rate : 074 BPM P-R Int : 166 ms QRS Dur : 088 ms QT Int : 410 ms P-R-T Axes : 033 -24 034 degrees QTc Int : 455 ms SINUS RHYTHM WITH PREMATURE ATRIAL COMPLEXES POSSIBLE LEFT ATRIAL ENLARGEMENT BORDERLINE ECG WHEN COMPARED WITH ECG OF 13-MAY-2017 19:23, PREMATURE ATRIAL COMPLEXES ARE NOW PRESENT Confirmed by BIRGIT ANGELO, KEILY ([id number]) on 07/10/2017 12:41:33 PM Referred By: Confirmed By:KEILY GENAO MD
== END 2017-07-10 00:02 | disposition home or self-care (01) ==
LOC: JER 20:55
PROC: 3E033GC Introduction of Other Therapeutic Substance into Peripheral Vein, Percutaneous Approach (ICD-10-PCS; principal; 2017-07-09)
PROC: 3E0F7GC Introduction of Other Therapeutic Substance into Respiratory Tract, Via Natural or Artificial Opening (ICD-10-PCS; 2017-07-09)
DX: B34.9 Viral infection, unspecified (principal); E78.5 Hyperlipidemia, unspecified; J45.909 Unspecified asthma, uncomplicated; J44.9 Chronic obstructive pulmonary disease, unspecified; I50.9 Heart failure, unspecified; I48.91 Unspecified atrial fibrillation; I12.9 Hypertensive chronic kidney disease with stage 1 through stage 4 chronic kidney disease, or unspecified chronic kidney disease; E11.22 Type 2 diabetes mellitus with diabetic chronic kidney disease; N18.9 Chronic kidney disease, unspecified; Z79.84 Long term (current) use of oral hypoglycemic drugs; K21.9 Gastro-esophageal reflux disease without esophagitis; Z91.013 Allergy to seafood; Z91.011 Allergy to milk products; Z79.82 Long term (current) use of aspirin; Z79.01 Long term (current) use of anticoagulants
CPT/HCPCS: 36415; 71020-TC; 80053; 83880; 84484; 85025; 85610; 93005; 93010; 99282-25

== ENCOUNTER 2017-09-12 18:23 | Emergency (ER) | payer MEDICARE ==
[2017-09-12 18:43] VITALS: BMI 40.3
--- NOTE | 2017-09-12 18:45 | PDOC ---
Rapid Medical Evaluation Time Seen by Provider: 09/12/17 18:36 Medical Evaluation: Allergies Allergy/AdvReac Type Severity Reaction Status Date / Time shellfish derived Allergy Severe Swelling Verified 07/09/17 21:14 lactose Allergy Mild Verified 07/09/17 21:14 09/12/17 18:40 The patient presents with a chief complaint of: coughing and wheezing x 2 weeks , last visit 10 days ago with pam rasmussen and no meds given. Pt took previously prescribed amoxicillin x 1 today. Dark green prod cough, hx asthma and copd. sees dr. cabrera I have performed a brief in-person evaluation of this patient. Pertinent physical exam findings: inspiratory/ exp wheeze to left lobe I have ordered the following: duoneb The patient will proceed to the ED for further evaluation. Discharge Disposition - Diagnosis Cough, Asthma - Discharge Dispostion Disposition: HOME Condition at time of disposition: Improved - Prescriptions Prescriptions: Azithromycin [Zithromax -] 250 mg PO UTDICT #6 tab Methylprednisolone [Medrol Dose Griffin] 4 mg PO ASDIR #21 tablet - Referrals Referrals: Leno Cabrera MD [Staff Physician] - Pam Dejesus MD [Primary Care Provider] - - Patient Instructions Printed Discharge Instructions: DI for Asthma -- Adult, DI for Cough -- Adult Additional Instructions: Take medications as directed. Follow up with both your doctor for re- evaluation of your asthma/ cough in the next day or two if symptoms don't get better. Return if any problems. Continue all your other medications as usual. - Post Discharge Activity
[2017-09-12] MEDS ORDERED: ALBUTEROL SO4 2.5/IPRATROPIUM 0.5 INH SOL 3 ML VIAL.NEB. NEB ONE (19:00)
--- NOTE | 2017-09-12 20:39 | PDOC ---
History of Present Illness - General History Source: Patient <Joanna Schillingan - Last Filed: 09/12/17 20:48> - General History Source: Patient Exam Limitations: No Limitations - History of Present Illness Initial Comments: 09/12/17 20:56 The patient is a 72-year-old female with a significant past medical history of HTN, HLD, NIDDM, asthma, COPD, A-fib, CHF, chronic kidney disease, GERD, diverticulitis, who presents to the emergency department with 2 weeks of persistent cough, occasionally productive of yellow sputum. She denies any sick contacts or recent travels. The patient received a duoneb in triage which she reports relieved her symptoms. The patient denies chest pain, shortness of breath, diaphoresis, and headache. The patient denies fever, chills, nausea, vomit, diarrhea and constipation. The patient denies dysuria, frequency, urgency and hematuria. 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 Leno Cabrera <Giselle Sullivan - Last Filed: 09/12/17 20:57> - General Chief Complaint: Shortness of Breath Stated Complaint: ASTHMA Time Seen by Provider: 09/12/17 18:36 Past History - Past Medical History Asthma: Yes Cardiac Disorders: Yes (intermittent atrial fibrillation) COPD: Yes CHF: No Diabetes: Yes GI Disorders: Yes (diverticulitis, and GERD) Disorders: No HTN: Yes Hypercholesterolemia: Yes - Surgical History Abdominal Surgery: Yes (partial hysterectomy) Appendectomy: No Cholecystectomy: No - Immunization History Immunization Up to Date: Yes - Suicide/Smoking/Psychosocial Hx Smoking Status: Yes Smoking History: Former smoker Have you smoked in the past 12 months: No Number of Cigarettes Smoked Daily: 0 If you are a former smoker, when did you quit?: Over 45 years ago Information on smoking cessation initiated: No Hx Alcohol Use: No Drug/Substance Use Hx: No Substance Use Type: None Hx Substance Use Treatment: No <Chay Schilling - Last Filed: 09/12/17 20:48> <Giselle Sullivan - Last Filed: 09/12/17 20:57> - Past Medical History Allergies/Adverse Reactions: Allergies Allergy/AdvReac Type Severity Reaction Status Date / Time shellfish derived Allergy Severe Swelling Verified 09/12/17 18:38 lactose Allergy Mild Verified 09/12/17 18:38 Home Medications: Ambulatory Orders Aspirin [ASA -] 81 mg PO DAILY 05/16/12 Montelukast Na [Singulair -] 10 mg PO HS 05/16/12 Amiodarone HCl [Cordarone -] 100 mg PO DAILY #1 11/22/12 Glimepiride [Amaryl -] 4 mg PO DAILY 09/27/13 Multivitamin [Multivitamins] 1 each PO DAILY 12/13/13 Levalbuterol HCl [Xopenex] 0.31 mg IH PRN PRN #0 vial.neb. 12/16/13 Albuterol 0.083% Nebulizer Patricia [Ventolin 0.083% Nebulizer Soln -] 1 neb NEB PRN 03/07/16 Fluticasone Propionate [Flovent Diskus] 250 mcg IH DAILY 03/07/16 Rivaroxaban [Xarelto -] 20 mg PO DAILY 03/07/16 Simvastatin [Zocor -] 20 mg PO HS 03/07/16 Bimatoprost [Lumigan] 1 drop OS HS 09/20/16 Garlic [Odorless Garlic] 1,000 mg PO DAILY 09/20/16 Losartan/Hydrochlorothiazide [Losartan-Hctz 100-25 mg Tab] 1 each PO DAILY 09/20 Albuterol Sulfate Inhaler - [Ventolin HFA Inhaler -] 1 - 2 inh PO Q4H PRN #1 inhaler 02/20/17 Amlodipine Besylate 5 mg PO DAILY 02/20/17 Prednisone [Deltasone] 60 mg PO DAILY #12 tablet 02/20/17 Azithromycin [Zithromax -] 250 mg PO UTDICT #6 tab 09/12/17 Methylprednisolone [Medrol Dose Griffin] 4 mg PO ASDIR #21 tablet 09/12/17 Review of Systems - Review of Systems Able to Perform ROS?: Yes Comments:: 09/12/17 20:56 CONSTITUTIONAL: Absent: fever, chills, diaphoresis, generalized weakness, malaise, loss of appetite HEENT: Absent: rhinorrhea, nasal congestion, throat pain, throat swelling, difficulty swallowing, mouth swelling, ear pain, eye pain, visual Changes CARDIOVASCULAR: Absent: chest pain, syncope, palpitations, irregular heart rate, lightheadedness , peripheral edema RESPIRATORY: (+) productive cough, Absent: shortness of breath, dyspnea with exertion, orthopnea, wheezing, stridor, hemoptysis GASTROINTESTINAL: Absent: abdominal pain, abdominal distension, nausea, vomiting, diarrhea, constipation, melena, hematochezia GENITOURINARY: Absent: dysuria, frequency, urgency, hesitancy, hematuria, flank pain, genital pain MUSCULOSKELETAL: Absent: myalgia, arthralgia, joint swelling SKIN: Absent: rash, itching, pallor HEMATOLOGIC/IMMUNOLOGIC: Absent: easy bleeding, easy bruising, lymphadenopathy, frequent infections ENDOCRINE: Absent: unexplained weight gain, unexplained weight loss, heat intolerance, cold intolerance NEUROLOGIC: Absent: headache, focal weakness or paresthesias, dizziness, unsteady gait, seizure, mental status changes, bladder or bowel incontinence PSYCHIATRIC: Absent: anxiety, depression, suicidal or homicidal ideation, hallucinations. <Giselle Sullivan - Last Filed: 09/12/17 20:57> *Physical Exam - Vital Signs Last Vital Signs Temp Pulse Resp BP Pulse Ox 98.2 F 71 19 154/81 96 09/12/17 18:39 09/12/17 18:39 09/12/17 18:39 09/12/17 18:39 09/12/17 18:39 <Chay Schilling - Last Filed: 09/12/17 20:48> - Vital Signs Last Vital Signs Temp Pulse Resp BP Pulse Ox 98.2 F 71 19 154/81 96 09/12/17 18:39 09/12/17 18:39 09/12/17 18:39 09/12/17 18:39 09/12/17 18:39 - Physical Exam Comments: 09/12/17 20:56 GENERAL: Well developed, well nourished. Awake and alert. No acute distress. HEENT: Normocephalic, atraumatic. PERRLA, EOMI. No conjunctival pallor. Sclera are non- icteric. Moist mucous membranes. Oropharynx is clear. NECK: Supple. Full ROM. No JVD. Carotid pulses 2+ and symmetric, without bruits. No thyromegaly. No lymphadenopathy. CARDIOVASCULAR: Regular rate and rhythm. No murmurs, rubs, or gallops. Distal pulses are 2+ and symmetric. PULMONARY: (+) Decreased breath sounds bilaterally. Work of breathing is normal. No retractions, no conversational dyspnea. No evidence of respiratory distress. No wheezing, rales or rhonchi. ABDOMINAL: Soft. Non-tender. Non-distended. No rebound or guarding. No organomegaly. Normoactive bowel sounds. MUSCULOSKELETAL Normal range of motion at all joints. No bony deformities or tenderness. No CVA tenderness. EXTREMITIES: No cyanosis. No clubbing. No edema. No calf tenderness. SKIN: Warm and dry. Normal capillary refill. No rashes. No jaundice. NEUROLOGICAL: Alert, awake, appropriate. Cranial nerves 2-12 intact. Normoreflexic in the upper and lower extremities. Normal speech. Toes are down-going bilaterally. Gait is normal without ataxia. PSYCHIATRIC: Cooperative. Good eye contact. Appropriate mood and affect. <Giselle Sullivan - Last Filed: 09/12/17 20:57> Medical Decision Making - Medical Decision Making 09/12/17 20:52 Dr. Schilling: The scribe's documentation has been prepared under my direction and personally reviewed by me in its entirery. I confirm that the note above accurately reflects all work, treatment, procedures, and medical decision making performed by me. <Chay Schilling - Last Filed: 09/12/17 20:48> *DC/Admit/Observation/Transfer - Discharge Dispostion Admit: No <Chay Schilling - Last Filed: 09/12/17 20:48> - Attestations Scribe Attestion: 09/12/17 20:57 Documentation prepared by Giselle Sullivan, acting as medical office receptionist assistant for Chay Schilling DO <Giselle Sullivan - Last Filed: 09/12/17 20:57> Diagnosis at time of Disposition: Cough Asthma Qualifiers: Asthma severity: mild Asthma persistence: unspecified Asthma complication type : uncomplicated Qualified Code(s): J45.909 - Unspecified asthma, uncomplicated - Discharge Dispostion Disposition: HOME Condition at time of disposition: Improved - Prescriptions Prescriptions: Azithromycin [Zithromax -] 250 mg PO UTDICT #6 tab Methylprednisolone [Medrol Dose Griffin] 4 mg PO ASDIR #21 tablet - Referrals Referrals: Pam Dejesus MD [Primary Care Provider] - Leno Cabrera MD [Staff Physician] - - Patient Instructions Printed Discharge Instructions: DI for Asthma -- Adult, DI for Cough -- Adult Additional Instructions: Take medications as directed. Follow up with both your doctor for re- evaluation of your asthma/ cough in the next day or two if symptoms don't get better. Return if any problems. Continue all your other medications as usual. - Post Discharge Activity
[2017-09-12] MEDS ORDERED: predniSONE 20 MG TABLET (UD) PO ONE (20:47)
[2017-09-12] MEDS ORDERED: predniSONE 20 MG TABLET (UD) ONE (21:07)
[2017-09-12 21:36] VITALS: BP 154/80; PULSE 70; TEMP 98
== END 2017-09-12 21:42 | disposition home or self-care (01) ==
LOC: JER 18:23
DX: J45.909 Unspecified asthma, uncomplicated (principal); J44.9 Chronic obstructive pulmonary disease, unspecified; I48.91 Unspecified atrial fibrillation; Z79.01 Long term (current) use of anticoagulants; I12.9 Hypertensive chronic kidney disease with stage 1 through stage 4 chronic kidney disease, or unspecified chronic kidney disease; E11.22 Type 2 diabetes mellitus with diabetic chronic kidney disease; N18.9 Chronic kidney disease, unspecified; Z79.84 Long term (current) use of oral hypoglycemic drugs; K21.9 Gastro-esophageal reflux disease without esophagitis; K57.92 Diverticulitis of intestine, part unspecified, without perforation or abscess without bleeding
CPT/HCPCS: 99281-25

== ENCOUNTER 2018-01-18 06:17 | Emergency (ER) | payer MEDICARE ==
[2018-01-18 07:01] VITALS: BMI 36.0
--- NOTE | 2018-01-18 07:14 | PDOC ---
History of Present Illness <Jonny Patricia - Last Filed: 01/18/18 10:59> - General History Source: Patient Exam Limitations: No Limitations <ChristopherShraddha simon - Last Filed: 01/18/18 11:50> - General Chief Complaint: Palpitations Stated Complaint: PALPITATIONS Time Seen by Provider: 01/18/18 07:13 - History of Present Illness Initial Comments: 01/18/18 11:49 The patient is a 72 year old female, with a significant past medical history of HTN, HLD, NIDDM, Asthma, COPD, A-fib (on Eliquis), CHF, chronic kidney disease, GERD, diverticulitis who presents to the emergency department with palpitations. Patient woke up at 4:30 AM today to use the restroom, upon returning to bed, patient noticed her heart beating too fast and was skipping a beat. Patient reports intermittent palpitations which ultimately resolved three hours later. Patient denies any chest pain, tingling, numbness, lightheadedness , vision changes, nausea or vomiting during the episode. Patient reports chronic leg edema however LLE appears more edematous than normal. Patient also endorses urinary frequency (pt on diuretics) without dysuria. Upon evaluation, patient is asypmtmatic. Patient denies diaphoresis, headache or dizziness. Patient denies fever, chills, abdominal pain, diarrhea or constipation. Patient denies dysuria, frequency, urgency or hematuria. Patient denies sick contacts or recent travel. Allergies: shellfish, lactose Past surgical history: partial hysterectomy Social history: Former smoker PCP: Dr. Leno Mcneill Cardio: [facility] (Shraddha White) Past History - Past Medical History Asthma: Yes Cardiac Disorders: Yes (intermittent atrial fibrillation) COPD: Yes CHF: No Diabetes: Yes GI Disorders: Yes (diverticulitis, and GERD) Disorders: No HTN: Yes Hypercholesterolemia: Yes - Surgical History Abdominal Surgery: Yes (partial hysterectomy) Appendectomy: No Cholecystectomy: No - Immunization History Immunization Up to Date: Yes - Suicide/Smoking/Psychosocial Hx Smoking Status: Yes Smoking History: Never smoked Have you smoked in the past 12 months: No Number of Cigarettes Smoked Daily: 0 If you are a former smoker, when did you quit?: Over 45 years ago Information on smoking cessation initiated: No Hx Alcohol Use: No Drug/Substance Use Hx: No Substance Use Type: None Hx Substance Use Treatment: No <Jonny Patricia - Last Filed: 01/18/18 10:59> <Shraddha White - Last Filed: 01/18/18 11:50> - Past Medical History Allergies/Adverse Reactions: Allergies Allergy/AdvReac Type Severity Reaction Status Date / Time shellfish derived Allergy Severe Swelling Verified 01/18/18 07:01 lactose Allergy Mild Verified 01/18/18 07:01 Home Medications: Ambulatory Orders Aspirin [ASA -] 81 mg PO DAILY 05/16/12 Montelukast Na [Singulair -] 10 mg PO HS 05/16/12 Amiodarone HCl [Cordarone -] 100 mg PO DAILY #1 11/22/12 Glimepiride [Amaryl -] 4 mg PO DAILY 09/27/13 Multivitamin [Multivitamins] 1 each PO DAILY 12/13/13 Levalbuterol HCl [Xopenex] 0.31 mg IH PRN PRN #0 vial.neb. 12/16/13 Albuterol 0.083% Nebulizer Patricia [Ventolin 0.083% Nebulizer Soln -] 1 neb NEB PRN 03/07/16 Fluticasone Propionate [Flovent Diskus] 250 mcg IH DAILY 03/07/16 Simvastatin [Zocor -] 20 mg PO HS 03/07/16 Bimatoprost [Lumigan] 1 drop OS HS 09/20/16 Garlic [Odorless Garlic] 1,000 mg PO DAILY 09/20/16 Losartan/Hydrochlorothiazide [Losartan-Hctz 100-25 mg Tab] 1 each PO DAILY 09/20 Albuterol Sulfate Inhaler - [Ventolin HFA Inhaler -] 1 - 2 inh PO Q4H PRN #1 inhaler 02/20/17 Apixaban [Eliquis -] 5 mg PO DAILY 01/18/18 Review of Systems <Jonny Patricia - Last Filed: 01/18/18 10:59> - Review of Systems Able to Perform ROS?: Yes <Shraddha White - Last Filed: 01/18/18 11:50> - Review of Systems Comments:: 01/18/18 11:49 CONSTITUTIONAL: No reported: Fever, Chills, Diaphoresis, Generalized Weakness, Malaise, Loss of Appetite HEENT: No reported: Rhinorrhea, Nasal Congestion, Throat Pain, Throat Swelling, Difficulty Swallowing, Mouth Swelling, Ear Pain, Eye Pain, Visual Changes CARDIOVASCULAR: +palpitations. No reported: Chest Pain, Syncope, Irregular Heart Rate, Lightheadedness, Peripheral Edema RESPIRATORY: No reported: Cough, Shortness of Breath, SOB with Exertion, Orthopnea, Wheezing , Stridor, Hemoptysis GASTROINTESTINAL: No reported: Abdominal pain, Abdominal Distension, Nausea, Vomiting, Diarrhea, Constipation, Melena, Hematochezia GENITOURINARY: No reported: Dysuria, Frequency, Urgency, Hesitancy, Flank Pain, Genital Pain MUSCULOSKELETAL: No reported: Myalgia, Arthralgia, Joint Swelling, Back pain, Neck Pain SKIN: No reported: Rash, Itching, Pallor HEMATOLOGIC/IMMUNOLOGIC: No reported: Easy Bleeding, Easy Bruising, Lymphadenopathy, Frequent infections ENDOCRINE: No reported: Unexplained Weight Gain, Unexplained Weight Loss, Heat Intolerance , Cold Intolerance NEUROLOGIC: No reported: Headache, Focal Weakness, Paresthesias, Vertigo, Lightheadedness, Unsteady Gait, Seizure, Mental Status Changes, Incontinence PSYCHIATRIC: No reported: Anxiety, Depression (Shraddha White) *Physical Exam <Jonny Patricia - Last Filed: 01/18/18 10:59> <Shraddha White - Last Filed: 01/18/18 11:50> - Vital Signs Last Vital Signs Temp Pulse Resp BP Pulse Ox 98.0 F 65 18 113/67 98 01/18/18 06:52 01/18/18 09:11 01/18/18 09:11 01/18/18 09:11 01/18/18 09:11 - Physical Exam Comments: 01/18/18 11:50 GENERAL: The patient is awake, alert, and fully oriented, Nontoxic - in no acute distress. HEAD: Normocephalic, atraumatic. EYES: extraocular movements intact, sclera anicteric, conjunctiva clear. ENT: Normal voice, Moist mucous membranes. NECK: Normal range of motion, No JVD LUNGS: Breath sounds equal, clear to auscultation bilaterally. No wheezes, no rhonchi, no rales. HEART: Regular rate and rhythm, normal S1 and S2 without murmur, rub or gallop. ABDOMEN: Soft, nontender, normoactive bowel sounds. No guarding, no rebound. No masses. No CVA tenderness EXTREMITIES: Normal range of motion. No clubbing or cyanosis. No cords, erythema , or tenderness. +1 pitting edema. NEUROLOGICAL: No facial asymmetry, Normal speech, normal gait. PSYCH: Normal mood, normal affect. SKIN: Warm, Dry, normal turgor. (Shraddha White) Heart Score/ECG Review <Jonny Patricia - Last Filed: 01/18/18 10:59> <Shraddha White - Last Filed: 01/18/18 11:50> - ECG Impressions Comment:: 01/18/18 07:35 Twelve-lead EKG was performed and reviewed by me. There is normal sinus rhythm with a normal rate. rate of 76 The axis is normal. The intervals are normal. There is normal R wave progression There are no ST or T wave abnormalities. Impression: Normal twelve-lead EKG (Jonny Patricia) ED Treatment Course - LABORATORY CBC & Chemistry Diagram: 01/18/18 07:51 01/18/18 07:51 <Belem,Jonny - Last Filed: 01/18/18 10:59> - LABORATORY CBC & Chemistry Diagram: 01/18/18 07:51 01/18/18 07:51 <Shraddha White - Last Filed: 01/18/18 11:50> - ADDITIONAL ORDERS Additional order review: Laboratory Results 01/18/18 01/18/18 01/18/18 08:34 07:51 07:51 PT with INR 15.50 H INR 1.37 H Sodium 140 Potassium 3.3 L Chloride 104 Carbon Dioxide 32 Anion Gap 4 L BUN 20 H Creatinine 1.0 Creat Clearance w eGFR 54.81 Random Glucose 111 H Calcium 8.6 Total Bilirubin 0.2 AST 13 L ALT 17 Alkaline Phosphatase 73 Creatine Kinase 166 Creatine Kinase Index 0.7 CK-MB (CK-2) 1.269 Troponin I 0.03 Total Protein 7.1 Albumin 3.4 Urine Color Straw Urine Appearance Clear Urine pH 7.0 D Ur Specific [place] 1.010 Urine Protein Negative Urine Glucose (UA) Negative Urine Ketones Negative Urine Blood Negative Urine Nitrite Negative Urine Bilirubin Negative Urine Urobilinogen Negative Ur Leukocyte Esterase Negative 01/18/18 07:51 RBC 4.53 MCV 91.4 MCHC 33.6 RDW 14.8 MPV 8.6 Neutrophils % 56.5 Lymphocytes % 24.4 D Monocytes % 11.2 H Eosinophils % 7.7 H Basophils % 0.2 - Medications Given in the ED: ED Medications Discontinued Medications Generic Name Dose Route Start Last Admin Trade Name Eva PRN Reason Stop Dose Admin Potassium Chloride 40 meq 01/18/18 10:01 01/18/18 10:27 Potassium Chloride Oral Liquid PO 01/18/18 10:02 40 meq ONCE ONE Administration Medical Decision Making <Jonny Patricia - Last Filed: 01/18/18 10:59> <Shraddha White - Last Filed: 01/18/18 11:50> - Medical Decision Making 01/18/18 07:14 72y F hx of afib on eliquis, htn, hl, niddm, copd, chf, ckd, gerd presents with palpitations last night when she was going to the bathroom, 'heart beating out of chest' denies any cp, sob, diaphoresis, n/v, abd pain. pt currently asypmtomatic. exam unremarkble ekg shows nsr will ck labs to r/o metabolic dernagements, anemia pt placed on cardiac sonographer will dw pmd 01/18/18 10:59 pts labs reviewed noted fo rmild hypokalemia - pt was repleated with 40meq of k On reassessment the patient is still asymptomatic will dc the pt to fu with PMD dw dr. mesa, agree with management and outpatient cardiology fu Return precautions were discussed I discussed the physical exam findings, ancillary test results and final diagnoses with the patient. I answered all of the patient's questions. The patient was satisfied with the care received and felt comfortable with the discharge plan and treatment plan. The patient will call their primary care physician within 24 hours to arrange follow-up and will return to the Emergency Department with any new, persistent or worsening symptoms. (Jonny Patricia) *DC/Admit/Observation/Transfer - Discharge Dispostion Admit: No <Jonny Patricia - Last Filed: 01/18/18 10:59> <Shraddha White - Last Filed: 01/18/18 11:50> Diagnosis at time of Disposition: Palpitations - Discharge Dispostion Disposition: HOME Condition at time of disposition: Improved - Referrals Referrals: Juan Mesa MD [Staff Physician] - - Patient Instructions Printed Discharge Instructions: DI for Palpitations Additional Instructions: Please follow up with dr. Mesa or his colleagues (call [phone]) to scheduel an appointment with 2 weeks Your potassium is slightly low - please have this rechecked by your primary care doctor. Return to the emergency department immediately with ANY new, persistent or worsening symptoms. You MUST call and follow up with your doctor tomorrow for further evaluation of your symptoms. Results were discussed with you. Please make sure your doctor reviews the results of your emergency evaluation. If you had any xrays during your visit, it was read preliminarily by myself, a Radiologist will review it and if there are any additional findings we will call you. Print Language: SLOVAK - Attestations Scribe Attestion: 01/18/18 11:50 Documentation prepared by Shraddha White, acting as emergency medical services coordinator for Jonny Patricia MD (Shraddha White)
[2018-01-18 08:12] LABS: BASO % 0.2 % (0-2.0); EOS % 7.7 % (0-4.5); HEMATOCRIT 41.4 % (32.4-45.2); HEMOGLOBIN 13.9 GM/dL (10.7-15.3); LYMPH % 24.4 % (8-40); MCH 30.7 pg (25.7-33.7); MCHC 33.6 g/dl (32.0-36.0); MEAN CELL VOLUME 91.4 fl (80-96); MEAN PLT VOLUME 8.6 fl (7.5-11.1); MONO % 11.2 % (3.8-10.2); NEUT % 56.5 % (42.8-82.8); PLATELET COUNT 232 K/MM3 (134-434); RBC 4.53 M/mm3 (3.60-5.2); RDW 14.8 % (11.6-15.6); WHITE BLOOD COUNT 6.9 K/mm3 (4.0-10.0)
[2018-01-18 08:25] LABS: INR 1.37 (0.82-1.09); PROTHROMBIN TIME (PATIENT) 15.5 SEC (9.98-11.88)
[2018-01-18 08:31] LABS: ALBUMIN 3.4 g/dl (3.4-5.0); ANION GAP 4 (8-16); BILIRUBIN,TOTAL 0.2 mg/dL (0.2-1.0); BLOOD UREA NITROGEN 20 mg/dL (7-18); CALCIUM 8.6 mg/dL (8.5-10.1); CHLORIDE 104 mmol/L (98-107); CO2 32 mmol/L (21-32); GLUCOSE,RANDOM 111 mg/dL (74-106); POTASSIUM 3.3 mmol/L (3.5-5.1); SGOT/AST 13 U/L (15-37); SGPT/ALT 17 U/L (12-78); SODIUM 140 mmol/L (136-145); TOT PROT 7.1 g/dl (6.4-8.2)
[2018-01-18 08:34] LABS: ALK PHOS 73 U/L (45-117)
[2018-01-18 08:45] LABS: URINE APPEARANCE CLEAR; URINE BILIRUBIN NEGATIVE (<2.0 mg/dL); URINE BLOOD NEGATIVE (NEGATIVE); URINE COLOR STRAW; URINE GLUCOSE (UA) NEGATIVE (NEGATIVE); URINE KETONE NEGATIVE (NEGATIVE); URINE LEUK ESTERASE NEGATIVE (NEGATIVE); URINE NITRITE NEGATIVE (NEGATIVE); URINE PROTEIN NEGATIVE (NEGATIVE); URINE UROBILINOGEN NEGATIVE mg/dL (0.2-1.0)
[2018-01-18] MEDS ORDERED: POTASSIUM CHLORIDE ORAL LIQUID 20 MEQ/15 ML PO ONE (10:01)
[2018-01-18] MEDS ORDERED: POTASSIUM CHLORIDE TABS 20 MEQ TABLET.ER (FP) PO ONE (10:15)
--- NOTE | 2018-01-18 11:21 | EKG ---
Test Reason : Blood Pressure : / mmHG Vent. Rate : 076 BPM Atrial Rate : 076 BPM P-R Int : 160 ms QRS Dur : 090 ms QT Int : 420 ms P-R-T Axes : 026 -23 033 degrees QTc Int : 472 ms NORMAL SINUS RHYTHM NORMAL ECG WHEN COMPARED WITH ECG OF 09-JUL-2017 22:38, PREMATURE ATRIAL COMPLEXES ARE NO LONGER PRESENT Confirmed by MIGUEL ANGEL NESS MD ([id number]) on 01/18/2018 11:20:58 AM Referred By: Confirmed By:MIGUEL ANGEL NESS MD
[2018-01-18 12:23] VITALS: BP 125/83; PULSE 67; TEMP 97.9
== END 2018-01-18 12:27 | disposition home or self-care (01) ==
LOC: JER 06:17
DX: R00.2 Palpitations (principal); I25.10 Atherosclerotic heart disease of native coronary artery without angina pectoris; I13.2 Hypertensive heart and chronic kidney disease with heart failure and with stage 5 chronic kidney disease, or end stage renal disease; N18.6 End stage renal disease; I50.89 Other heart failure; E78.00 Pure hypercholesterolemia, unspecified; E78.5 Hyperlipidemia, unspecified; E11.9 Type 2 diabetes mellitus without complications; Z79.84 Long term (current) use of oral hypoglycemic drugs; J45.909 Unspecified asthma, uncomplicated; J44.9 Chronic obstructive pulmonary disease, unspecified; R60.0 Localized edema; K21.9 Gastro-esophageal reflux disease without esophagitis; I48.91 Unspecified atrial fibrillation; Z79.01 Long term (current) use of anticoagulants; Z87.19 Personal history of other diseases of the digestive system
CPT/HCPCS: 36415; 71045-TC-FY; 80053; 81003; 82550; 82553; 84484; 85025; 85610; 93005; 93010; 99285-25

== ENCOUNTER 2018-02-26 12:12 | Inpatient (IN) | payer MEDICARE, OTHER ==
[2018-02-26 12:24] VITALS: BMI 39.1
[2018-02-26] MEDS ORDERED: FUROSEMIDE 40 MG/4 ML INJECTABLE VIAL IVPUSH ONE (13:04)
[2018-02-26] MEDS ORDERED: FUROSEMIDE 40 MG/4 ML INJECTABLE VIAL ONE (13:15)
--- NOTE | 2018-02-26 13:20 | PDOC ---
History of Present Illness - General Chief Complaint: Edema Stated Complaint: SOB Time Seen by Provider: 02/26/18 12:53 History Source: Patient Exam Limitations: No Limitations - History of Present Illness Initial Comments: 02/26/18 13:17 Patient is 73F with history of HTN, DM, HLD, aFib (on eliquis), asthma, and ? CHF here today complaining of leg edema that has progressively gotten worse over many months, but especially in the past few weeks. Patient denies CHF history but does have afib and takes 60mg of lasix. Patient does not know when her last ECHO was. Patient reports having bilateral DVT ultrasound study that was performed which was negative. Patient reports compliant with medication of lasix, but does miss some doses. Patient is unsure if she has decreased exercise tolerance and increased shortness of breath given her asthma history. PCP: [facility] Past History - Past Medical History Allergies/Adverse Reactions: Allergies Allergy/AdvReac Type Severity Reaction Status Date / Time shellfish derived Allergy Severe Swelling Verified 02/26/18 12:19 lactose Allergy Mild Verified 02/26/18 12:19 Home Medications: Ambulatory Orders Aspirin [ASA -] 81 mg PO DAILY 05/16/12 Montelukast Na [Singulair -] 10 mg PO HS 05/16/12 Amiodarone HCl [Cordarone -] 100 mg PO DAILY #1 11/22/12 Glimepiride [Amaryl -] 4 mg PO DAILY 09/27/13 Multivitamin [Multivitamins] 1 each PO DAILY 12/13/13 Levalbuterol HCl [Xopenex] 0.31 mg IH PRN PRN #0 vial.neb. 12/16/13 Albuterol 0.083% Nebulizer Patricia [Ventolin 0.083% Nebulizer Soln -] 1 neb NEB PRN 03/07/16 Fluticasone Propionate [Flovent Diskus] 250 mcg IH DAILY 03/07/16 Bimatoprost [Lumigan] 1 drop OS HS 09/20/16 Garlic [Odorless Garlic] 1,000 mg PO DAILY 09/20/16 Losartan/Hydrochlorothiazide [Losartan-Hctz 100-25 mg Tab] 1 each PO DAILY 09/20 Albuterol Sulfate Inhaler - [Ventolin HFA Inhaler -] 1 - 2 inh PO Q4H PRN #1 inhaler 02/20/17 Furosemide [Lasix] 60 mg PO DAILY 02/26/18 Asthma: Yes Cardiac Disorders: Yes (intermittent atrial fibrillation) COPD: Yes CHF: No Diabetes: Yes GI Disorders: Yes (diverticulitis, and GERD) Disorders: No HTN: Yes Hypercholesterolemia: Yes - Surgical History Abdominal Surgery: Yes (partial hysterectomy) Appendectomy: No Cholecystectomy: No - Immunization History Immunization Up to Date: Yes - Suicide/Smoking/Psychosocial Hx Smoking Status: Yes Smoking History: Former smoker Have you smoked in the past 12 months: No Number of Cigarettes Smoked Daily: 0 If you are a former smoker, when did you quit?: Over 45 years ago Information on smoking cessation initiated: No Hx Alcohol Use: No Drug/Substance Use Hx: No Substance Use Type: None Hx Substance Use Treatment: No Review of Systems - Review of Systems Comments:: 02/26/18 13:21 GENERAL/CONSTITUTIONAL: No fever or chills. No weakness. HEAD, EYES, EARS, NOSE AND THROAT: No change in vision. No sore throat. CARDIOVASCULAR: No chest pain. Positive for shortness of breath RESPIRATORY: No cough, wheezing, or hemoptysis. GASTROINTESTINAL: No nausea, vomiting, diarrhea or constipation. GENITOURINARY: No dysuria, frequency, or change in urination. MUSCULOSKELETAL: No joint or muscle swelling or pain. No neck or back pain. SKIN: No rash NEUROLOGIC: No headache, vertigo, loss of consciousness, or change in strength/ sensation. ENDOCRINE: No increased thirst. No abnormal weight change HEMATOLOGIC/LYMPHATIC: No anemia, easy bleeding, or history of blood clots. ALLERGIC/IMMUNOLOGIC: No hives or skin allergy. *Physical Exam - Vital Signs Last Vital Signs Temp Pulse Resp BP Pulse Ox 98.4 F 60 20 131/78 99 02/26/18 12:19 02/26/18 12:19 02/26/18 12:19 02/26/18 12:19 02/26/18 12:19 - Physical Exam Comments: 02/26/18 13:26 GENERAL: Awake, alert, and fully oriented, in no acute distress HEAD: No signs of trauma, normocephalic, atraumatic EYES: PERRLA, EOMI, sclera anicteric, conjunctiva clear ENT: Auricles normal inspection, hearing grossly normal, nares patent, oropharynx clear without exudates. Moist mucosa NECK: Normal ROM, supple, no lymphadenopathy, JVD, or masses LUNGS: No distress, speaks full sentences, crackles bilaterally HEART: Regular rate and rhythm, normal S1 and S2, no murmurs, rubs or gallops, peripheral pulses normal and equal bilaterally. ABDOMEN: Soft, nontender, normoactive bowel sounds. No guarding, no rebound. No masses EXTREMITIES: Normal inspection, Normal range of motion, 2+ pitting edema. No clubbing or cyanosis. NEUROLOGICAL: Cranial nerves II through XII grossly intact. Normal speech, no focal sensorimotor deficits SKIN: Warm, Dry, normal turgor, no rashes or lesions noted. ED Treatment Course - LABORATORY CBC & Chemistry Diagram: 02/26/18 13:13 02/26/18 13:13 - RADIOLOGY Radiology Studies Ordered: Category Date Time Status CHEST X-RAY PORTABLE* [RAD] Stat Radiology 02/26/18 13:04 Ordered Medical Decision Making - Medical Decision Making 02/26/18 13:29 Patient is 73F with history of HTN, DM, ?chf, afib, asthma here today with leg swelling. Vascular study on 02/16/18 negative. Strongly suspect CHF exacerbation. Will do basic cardiac workup and likely admit to medicine. 02/26/18 16:45 Laboratory Tests 02/26/18 02/26/18 02/26/18 13:13 13:13 13:13 WBC 7.0 Hgb 12.5 D Plt Count 253 INR 1.84 H D Troponin I 0.04 B-Natriuretic Peptide 208.55 H CBC normal. INR elevated. Troponin detectable to 0.04. BNP mildly elevated. CXR shows evidence of pulmonary vascular congestion. EKG shows sinus bradycardia with rate of 59. No st elevations/depressions. No significant t wave abnormalities. Normal Clarence. Normal QRS/MN/QTc intervals. Will admit for CHF exacerbation. 02/26/18 17:02 Patient complaining of heartburn and nausea. Given maalox, pepcid and zofran. Will repeat DVT US. Patient accepted by Dr Henry. *DC/Admit/Observation/Transfer Diagnosis at time of Disposition: CHF exacerbation - Discharge Dispostion Disposition: HOME Condition at time of disposition: Good Decision to Admit order: Yes - Referrals Referrals: Marilyn Sidhu MD [Primary Care Provider] - - Patient Instructions - Post Discharge Activity
[2018-02-26 13:38] LABS: BASO % 1.1 % (0-2.0); EOS % 6.7 % (0-4.5); HEMATOCRIT 38.3 % (32.4-45.2); HEMOGLOBIN 12.5 GM/dL (10.7-15.3); LYMPH % 23.4 % (8-40); MCHC 32.8 g/dl (32.0-36.0); MEAN CELL VOLUME 91.6 fl (80-96); MEAN PLT VOLUME 8.2 fl (7.5-11.1); MONO % 11.4 % (3.8-10.2); NEUT % 57.4 % (42.8-82.8); PLATELET COUNT 253 K/MM3 (134-434); RBC 4.18 M/mm3 (3.60-5.2); RDW 14.8 % (11.6-15.6)
--- NOTE | 2018-02-26 13:51 | PDOC ---
Attending Attestation - Resident Resident Name: Guilherme Goldstein - ED Attending Attestation I have performed the following: I have examined & evaluated the patient, The case was reviewed & discussed with the resident, I agree w/resident's findings & plan, Exceptions are as noted - HPI HPI: 02/26/18 13:56 The patient is a 73 year old female with a significant PMH of afib, hypertension , diabetes, asthma, on lasix but denies CHF who presents to the emergency department with bilateral leg swelling. The patient reports that she has chronic leg swelling but, she reports that her bilateral leg swelling has worsened within the past few days and her LLE is now red. The patient reports that she had a recent DVT ultrasound study done on 02/14 which was negative. The patient states that she does not recall the last echo she had done - she sees Dr. Mesa (cards). The patient also reports chronic shortness of breath which has been worse over the last week. The patient denies chest pain, headache and dizziness. She denies fever, chills, nausea, vomit, diarrhea ,constipation or urinary symptoms. The patient denies any other complaints. Allergies: shellfish, lactose PCP: Marilyn Interiano - Physicial Exam PE: 02/26/18 13:57 GENERAL: Awake, alert, and fully oriented, in no acute distress HEAD: No signs of trauma EYES: PERRLA, EOMI, sclera anicteric, conjunctiva clear ENT: Auricles normal inspection, hearing grossly normal, nares patent, oropharynx clear without exudates. Moist mucosa NECK: Normal ROM, supple, no lymphadenopathy, JVD, or masses LUNGS: Diminished BS at bases with rales at R lung base. No wheezes, and no crackles HEART: Regular rate and rhythm, normal S1 and S2, no murmurs, rubs or gallops ABDOMEN: Soft, nontender, normoactive bowel sounds. No guarding, no rebound. No masses EXTREMITIES: Normal range of motion, L>R LE pitting edema with mild erythema to distal LLE without induration, wounds, or fluctuance. +ttp of L calf. No clubbing or cyanosis. No cords NEUROLOGICAL: Normal speech, cranial nerves intact, negative pronator drift, 5/ 5 strength in all 4 extremities, normal sensation to light touch in all 4 extremities, normal cerebellar exam, normal gait, normal reflexes and tone SKIN: Warm, Dry, normal turgor, no rashes or lesions noted. - Medical Decision Making 02/26/18 13:59 73-year-old female on Lasix, but no history of CHF presents emergency Department with worsening lower extremity swelling and progressive shortness of breath. Vitals unremarkable. Exam with diminished breath sounds at the bases with rales at the right lung base as well as 2+ pitting edema to the knees bilaterally left greater than right. DDX is wide and includes but is not limited to CHF versus DVT versus renal failure. Unlikely PE due to the duration of symptoms, no risk factors, normal vitals, and no chest pain. 02/26/18 16:59 Labs wnl. CXR with possible effusion. US pending. Pt admitted for SOB/CHF workup. Case discussed in detail with admitting physician including history, physical exam and ancillary studies. Admitting physician has assumed care for the patient, will follow all pending diagnostics and will complete the evaluation and treatment. Heart Score/ECG Review #1 02/26/18 14:03 Twelve-lead EKG was performed and reviewed by me. Sinus bradycardia, rate 59. Normal axis and intervals. No ST elevations. Isolated TWI lead III
[2018-02-26 14:00] LABS: INR 1.84 (0.82-1.09); PROTHROMBIN TIME (PATIENT) 20.8 SEC (9.7-13.0)
[2018-02-26] MEDS ORDERED: ACETAMINOPHEN 325 MG TABLET (FP) PO ONE (14:02)
[2018-02-26 14:09] LABS: ALBUMIN 3.2 g/dl (3.4-5.0); ANION GAP 7 (8-16); BILIRUBIN,TOTAL 0.3 mg/dL (0.2-1.0); BLOOD UREA NITROGEN 16 mg/dL (7-18); CALCIUM 8.6 mg/dL (8.5-10.1); CHLORIDE 102 mmol/L (98-107); CO2 31 mmol/L (21-32); GLUCOSE,RANDOM 69 mg/dL (74-106); MAGNESIUM 2.2 mg/dL (1.8-2.4); POTASSIUM 3.5 mmol/L (3.5-5.1); SGOT/AST 13 U/L (15-37); SGPT/ALT 16 U/L (12-78); SODIUM 140 mmol/L (136-145); TOT PROT 7.1 g/dl (6.4-8.2)
[2018-02-26 14:12] LABS: ALK PHOS 72 U/L (45-117); N-TERMINAL BNP 208.55 pg/ml (5-125)
[2018-02-26] MEDS ORDERED: ONDANSETRON 4 MG/2 ML VIAL IVPUSH PRN (17:01)
[2018-02-26] MEDS ORDERED: MAG HYDROX/AL HYDROX/SIMETH 30 ML UNIT-DOSE CUP PO ONE (17:01)
[2018-02-26] MEDS ORDERED: MAG HYDROX/AL HYDROX/SIMETH 30 ML UNIT-DOSE CUP ONE (17:03)
[2018-02-26] MEDS ORDERED: ONDANSETRON 4 MG/2 ML VIAL ONE (17:04)
--- NOTE | 2018-02-26 20:20 | HP ---
Admitting History and Physical - Primary Care Physician PCP: Yordy Henry - Admission Chief Complaint: sob History of Present Illness: 73F with history of HTN, DM, HLD, aFib (on eliquis), asthma, and ?CHF here today complaining of leg edema that has progressively gotten worse over many months, but especially in the past few weeks. Patient denies CHF history but does have afib and takes 60mg of lasix. Patient does not know when her last ECHO was. Patient reports having bilateral DVT ultrasound study that was performed which was negative. Patient reports compliant with medication of lasix , but does miss some doses. Patient is unsure if she has decreased exercise tolerance and increased shortness of breath given her asthma history. - Past Medical History Cardiovascular: Yes: AFIB, HTN, Hyperlipdemia Pulmonary: Yes: Asthma Endocrine: Yes: Diabetes Mellitus - Past Surgical History Past Surgical History: Yes: Hysterectomy - Smoking History Smoking history: Former smoker Have you smoked in the past 12 months: No Aproximately how many cigarettes per day: 0 If you are a former smoker, when did you quit?: Over 45 years ago - Alcohol/Substance Use Hx Alcohol Use: No - Social History ADL: Independent Home Medications - Allergies Allergies/Adverse Reactions: Allergies Allergy/AdvReac Type Severity Reaction Status Date / Time shellfish derived Allergy Severe Swelling Verified 02/26/18 12:19 lactose Allergy Mild Verified 02/26/18 12:19 - Home Medications Home Medications: Ambulatory Orders Aspirin [ASA -] 81 mg PO DAILY 05/16/12 Montelukast Na [Singulair -] 10 mg PO HS 05/16/12 Amiodarone HCl [Cordarone -] 100 mg PO DAILY #1 11/22/12 Glimepiride [Amaryl -] 4 mg PO DAILY 09/27/13 Multivitamin [Multivitamins] 1 each PO DAILY 12/13/13 Levalbuterol HCl [Xopenex] 0.31 mg IH PRN PRN #0 vial.neb. 12/16/13 Albuterol 0.083% Nebulizer Patricia [Ventolin 0.083% Nebulizer Soln -] 1 neb NEB PRN 03/07/16 Fluticasone Propionate [Flovent Diskus] 250 mcg IH DAILY 03/07/16 Bimatoprost [Lumigan] 1 drop OS HS 09/20/16 Garlic [Odorless Garlic] 1,000 mg PO DAILY 09/20/16 Losartan/Hydrochlorothiazide [Losartan-Hctz 100-25 mg Tab] 1 each PO DAILY 09/20 Albuterol Sulfate Inhaler - [Ventolin HFA Inhaler -] 1 - 2 inh PO Q4H PRN #1 inhaler 02/20/17 Furosemide [Lasix] 60 mg PO DAILY 02/26/18 Family Disease History - Family Disease History Family Disease History: Heart Disease: Father (CHF), Mother (CHF) Review of Systems - Review of Systems Respiratory: reports: SOB Physical Examination Vital Signs: Vital Signs Temperature 97.8 F 02/26/18 17:33 Pulse Rate 83 02/26/18 17:33 Respiratory Rate 16 02/26/18 17:33 Blood Pressure 134/68 02/26/18 17:33 O2 Sat by Pulse Oximetry (%) 98 02/26/18 17:33 Constitutional: Yes: No Distress HENT: Yes: Atraumatic Neck: Yes: Supple Cardiovascular: Yes: Regular Rate and Rhythm Respiratory: Yes: Rhonchi Gastrointestinal: Yes: Normal Bowel Sounds Extremities: Yes: WNL Edema: Yes Edema: LLE: 2+, RLE: 2+ Neurological: Yes: Alert, Oriented Labs: CBC, BMP 02/26/18 13:13 02/26/18 13:13 Problem List - Problems (1) CHF exacerbation Assessment/Plan: iv lasix continue home meds Code(s): I50.9 - HEART FAILURE, UNSPECIFIED (2) CKD (chronic kidney disease) stage 3, GFR 30-59 ml/min Code(s): N18.3 - CHRONIC KIDNEY DISEASE, STAGE 3 (MODERATE) (3) High blood pressure Assessment/Plan: on meds stable Code(s): I10 - ESSENTIAL (PRIMARY) HYPERTENSION Qualifiers: Hypertension type: unspecified secondary hypertension Qualified Code(s): I15.9 - Secondary hypertension, unspecified (4) Hyperlipidemia Assessment/Plan: on meds stable Code(s): E78.5 - HYPERLIPIDEMIA, UNSPECIFIED (5) Type 2 diabetes mellitus Assessment/Plan: insulin, bgms oral hypoglycemics Code(s): E11.9 - TYPE 2 DIABETES MELLITUS WITHOUT COMPLICATIONS Assessment/Plan Laboratory Tests 02/26/18 02/26/18 02/26/18 13:13 13:13 13:13 WBC 7.0 RBC 4.18 Hgb 12.5 D Hct 38.3 MCV 91.6 MCH 30.0 MCHC 32.8 RDW 14.8 Plt Count 253 MPV 8.2 Neutrophils % 57.4 Lymphocytes % 23.4 Monocytes % 11.4 H Eosinophils % 6.7 H Basophils % 1.1 D Nucleated RBC % 0 PT with INR 20.80 H INR 1.84 H D Sodium 140 Potassium 3.5 Chloride 102 Carbon Dioxide 31 Anion Gap 7 L BUN 16 Creatinine 1.0 Creat Clearance w eGFR 54.66 Random Glucose 69 L Calcium 8.6 Magnesium 2.2 Total Bilirubin 0.3 D AST 13 L ALT 16 Alkaline Phosphatase 72 Creatine Kinase 148 Troponin I 0.04 B-Natriuretic Peptide 208.55 H Total Protein 7.1 Albumin 3.2 L Active Medications Generic Name Dose Route Start Last Admin Trade Name Freq PRN Reason Stop Dose Admin Famotidine 20 mg in 12 mls @ 144 mls/hr 02/26/18 22:00 Pepcid 20 Mg/12 Ml Push IVPUSH BID TIFFANY Ondansetron HCl 4 mg 02/26/18 17:01 02/26/18 17:02 Zofran Injection IVPUSH 4 mg Q4H PRN Administration NAUSEA AND/OR VOMITING Active Medications Generic Name Dose Route Start Last Admin Trade Name Frelalitha PRN Reason Stop Dose Admin Albuterol Sulfate 1 amp 02/26/18 20:30 Ventolin 0.083% Nebulizer Soln - NEB Q4H PRN SHORT OF BREATH/WHEEZING Amiodarone HCl 100 mg 02/27/18 10:00 02/27/18 09:29 Cordarone - PO 100 mg DAILY TIFFANY Administration Aspirin 81 mg 02/27/18 10:00 02/27/18 09:29 Asa - PO 81 mg DAILY TIFFANY Administration Furosemide 40 mg 02/27/18 06:00 02/27/18 13:42 Lasix Injection - IVPUSH 40 mg BID@0600,1400 TIFFANY Administration Glimepiride 4 mg 02/27/18 07:00 02/27/18 06:13 Amaryl - PO Not Given 0700 TIFFANY Hydrochlorothiazide 25 mg 02/27/18 10:00 02/27/18 09:29 Hctz - PO 25 mg DAILY TIFFANY Administration Famotidine/Sodium Chloride 20 mg in 50 mls @ 100 mls/hr 02/26/18 23:14 09:30 Pepcid 20 Mg Premixed Ivpb - IVPB 100 mls/hr BID TIFFANY Administration Latanoprost 1 drop 02/26/18 22:00 02/27/18 00:23 Xalatan 0.005% Eye Drops - OS Not Given HS TIFFANY Losartan Potassium 100 mg 02/27/18 10:00 02/27/18 09:29 Cozaar - PO 100 mg DAILY TIFFANY Administration Montelukast Sodium 10 mg 02/26/18 22:00 02/26/18 21:20 Singulair - PO 10 mg HS TIFFANY Administration Ondansetron HCl 4 mg 02/26/18 17:01 02/26/18 17:02 Zofran Injection IVPUSH 4 mg Q4H PRN Administration NAUSEA AND/OR VOMITING Rivaroxaban 20 mg 02/27/18 18:00 02/27/18 17:35 Xarelto - PO 20 mg DAILY@1800 TIFFANY Administration
[2018-02-26] MEDS ORDERED: LEVALBUTEROL HCL 0.31 MG/3 ML VIAL.NEB IH PRN (20:21)
[2018-02-26] MEDS: HEPARIN NA (PORCINE) 5,000 UNITS/ML 1ML VIAL SQ SCH (21:20)
[2018-02-26] MEDS: MONTELUKAST NA 10 MG TABLET PO SCH (21:20)
[2018-02-26] MEDS ORDERED: FAMOTIDINE IV 20 MG/12 ML VIAL IVPUSH SCH (22:00)
[2018-02-27] MEDS: LATANOPROST 0.005% OPHTH SOLN 2.5ML BOTTLE OS SCH ×2 (00:23→21:19)
[2018-02-27] MEDS: FUROSEMIDE 40 MG/4 ML INJECTABLE VIAL IVPUSH SCH ×2 (06:12→13:42)
[2018-02-27] MEDS: GLIMEPIRIDE 2 MG TABLET (FP) PO SCH (06:13)
--- NOTE | 2018-02-27 08:43 | CON.CARD ---
Consult Consult Specialty:: Cardiology Referred by:: Dr. Henry Reason for Consultation:: Edema, sob - History of Present Illness Chief Complaint: Edema History of Present Illness: 73 year old woman h/o paroxysmal afib on eliquis until recently changed to xarelto due to insurance issues, on amio, HTN, DMII, HLD, chronic asthma, chronic likely diastolic CHF, chronic LE edema admitted with progressively worsening b/l LE edema and slightly worse SOB. Pt seen and examined today in nad. denies any chest pain. no palpitations. I had spoken with pt a few times over the past few weeks regarding her edema and plan was to give trial of leg elevation and compression stockings. she has had trouble using the compression stockings and states she keeps her legs elevated as much as possible. she has been on lasix at home for this edema. Her SOB is close to baseline due to her asthma but has slightly worsened and she reports runny nose and some bloody nose at times. - History Source History Provided By: Patient, Medical Record Limitations to Obtaining History: No Limitations - Past Medical History Cardio/Vascular: Yes: AFIB, CHF, HTN, Hyperlipdemia Pulmonary: Yes: Asthma Endocrine: Yes: Diabetes Mellitus - Past Surgical History Past Surgical History: Yes: Hysterectomy - Alcohol/Substance Use Hx Alcohol Use: No - Smoking History Smoking history: Former smoker Have you smoked in the past 12 months: No Aproximately how many cigarettes per day: 0 If you are a former smoker, when did you quit?: Over 45 years ago - Social History Usual Living Arrangement: With Child ADL: Independent Home Medications - Allergies Allergies/Adverse Reactions: Allergies Allergy/AdvReac Type Severity Reaction Status Date / Time shellfish derived Allergy Severe Swelling Verified 02/26/18 12:19 lactose Allergy Mild Verified 02/26/18 12:19 - Home Medications Home Medications: Ambulatory Orders Aspirin [ASA -] 81 mg PO DAILY 05/16/12 Montelukast Na [Singulair -] 10 mg PO HS 05/16/12 Amiodarone HCl [Cordarone -] 100 mg PO DAILY #1 11/22/12 Glimepiride [Amaryl -] 4 mg PO DAILY 09/27/13 Multivitamin [Multivitamins] 1 each PO DAILY 12/13/13 Levalbuterol HCl [Xopenex] 0.31 mg IH PRN PRN #0 vial.neb. 12/16/13 Albuterol 0.083% Nebulizer Patricia [Ventolin 0.083% Nebulizer Soln -] 1 neb NEB PRN 03/07/16 Fluticasone Propionate [Flovent Diskus] 250 mcg IH DAILY 03/07/16 Bimatoprost [Lumigan] 1 drop OS HS 09/20/16 Garlic [Odorless Garlic] 1,000 mg PO DAILY 09/20/16 Losartan/Hydrochlorothiazide [Losartan-Hctz 100-25 mg Tab] 1 each PO DAILY 09/20 Albuterol Sulfate Inhaler - [Ventolin HFA Inhaler -] 1 - 2 inh PO Q4H PRN #1 inhaler 02/20/17 Furosemide [Lasix] 60 mg PO DAILY 02/26/18 Family Disease History - Family Disease History Family Disease History: Heart Disease: Father (CHF), Mother (CHF) Review of Systems - Review of Systems Constitutional: denies: No Symptoms, Chills, Diaphoresis, Fever, Lethargy, Loss of Appetite, Malaise, Night Sweats, Unintentional Wgt. Loss, Weakness, Other Eyes: denies: No Symptoms, Blind Spots, Blurred Vision, Double Vision, Eye Pain , Floaters, Photophobia, Recent Change in Vision, Other HENT: reports: Epistaxis. denies: No Symptoms, Difficult Swallowing, Ear Discharge, Ear Pain, Gingival Bleeding, Hearing Loss, Mouth Swelling, Nasal Congestion, Ocular Prosthesis, Throat Pain, Toothache, Ringing in Ears, Other Neck: denies: No Symptoms, Decreased ROM, Lumps, Pain on Movement, Stiffness, Swollen Glands, Tenderness, Other Cardiovascular: reports: Edema, Shortness of Breath. denies: No Symptoms, Chest Pain, Palpitations, Other Respiratory: reports: Exercise Intolerance, SOB on Exertion, Wheezing. denies: No Symptoms, Cough, Hemoptysis, Orthopnea, PND, Snoring, SOB, Other Gastrointestinal: denies: No Symptoms, Abdominal Pain, Bloating, Constipation, Diarrhea, Dysphagia, Indigestion, Melena, Nausea, Rectal Bleeding, Vomiting, Vomiting Blood, Other Genitourinary: denies: No Symptoms, Burning, Discharge, Dysuria, Flank Pain, Frequency, Hematuria, Incontinence, Lesions, Menses, Pain, Testicular Mass, Testicular Pain, Testicular Swelling, Urgency, Vaginal Bleeding, Other Breasts: denies: No Symptoms Reported, See HPI, Breast Implants, Discharge from Nipple, Lumps, Pain, Skin Changes, Other Musculoskeletal: denies: No Symptoms, Back Pain, Crepitus, Decreased ROM, Extremity Pain, Joint Pain, Joint Swelling, Muscle Pain, Muscle Cramps, Muscle Weakness, Other Integumentary: denies: No Symptoms, Blister, Bruising, Change in Color, Eczema, Erythema, Incision, Lesions, Lump, Pallor, Pruritis, Rash, Wound, Other Neurological: denies: No Symptoms, Change in LOC, Change in Speech, Confusion, Dizziness, Headache, Incoordination, Numbness, Parasthesia, Pre-Existing Deficit , Seizure, Syncope, Tremors, Unsteady Gait, Weakness, Other Endocrine: denies: No Symptoms, Excessive Sweating, Flushing, Increased Hunger, Increased Thirst, Intolerance to Cold, Intolerance to Heat, Unexplained Weight Gain, Unexplained Weight Loss, Other Hematology/Lymphatic: denies: No Symptoms, Easily Bruised, Excessive Bleeding, Swollen Glands, Other Psychiatric: denies: No Symptoms, Altered Sleep Pattern, Anxiety, Depression, Hallucinations, Panic, Paranoia, Suicidal, Other - Risk Factors Known Risk Factors: Yes: Diabetes Mellitus, Hypercholesterolemia, Hypertension Vital Signs: Vital Signs Temperature 98.9 F 02/27/18 06:00 Pulse Rate 57 L 02/27/18 06:00 Respiratory Rate 20 02/27/18 06:00 Blood Pressure 116/50 02/27/18 06:00 O2 Sat by Pulse Oximetry (%) 98 02/26/18 23:35 Constitutional: Yes: No Distress, Calm, Obese Eyes: Yes: Conjunctiva Clear, EOM Intact, PERRL HENT: Yes: WNL, Atraumatic, Normocephalic Neck: Yes: WNL, Supple, Trachea Midline Respiratory: Yes: Regular, Diminished. No: Rales, Rhonchi, SOB, Wheezes Gastrointestinal: Yes: WNL, Normal Bowel Sounds, Soft. No: Distention, Tenderness Renal/: Yes: WNL Cardiovascular: Yes: Regular Rate and Rhythm. No: Bradycardia, Tachycardia, Pulse Irregular, Gallop, Rub, Varicosities JVD: No Carotid Bruit: No PMI: Non-Displaced Heart Sounds: Yes: S1, S2. No: Split S2, S3, S4, Clicks, Gallop, Rub, Bruit Murmur: No: Systolic Murmur, Diastolic Murmur Musculoskeletal: Yes: WNL Extremities: Yes: WNL Edema: Yes Edema: LLE: 2+, RLE: 2+ Peripheral Pulses WNL: Yes Peripheral Pulses: 2+ Left Doralis Pedis, 2+ Right Dorsalis Pedis Neurological: Yes: Alert, Oriented Psychiatric: Yes: Alert, Oriented - Other Data Labs, Other Data: CBC, BMP 02/26/18 13:13 02/26/18 13:13 INR, PTT INR 1.84 (0.82-1.09) H D 02/26/18 13:13 Troponin, BNP 02/26/18 13:13 Troponin I 0.04 B-Natriuretic Peptide 208.55 H Troponin, BNP 02/26/18 13:13 Troponin I 0.04 B-Natriuretic Peptide 208.55 H ekg-NSR Echo: Report Reviewed Imaging - Results Chest X-ray: Report Reviewed, Image Reviewed EKG: Report Reviewed, Image Reviewed Other: Report Reviewed, Image Reviewed Assessment/Plan 73 year old woman h/o paroxysmal afib on eliquis until recently changed to xarelto due to insurance issues, on amio, HTN, DMII, HLD, chronic asthma, chronic likely diastolic CHF, chronic LE edema admitted with progressively worsening b/l LE edema and slightly worse SOB. Pt seen and examined today in nad. denies any chest pain. no palpitations. I had spoken with pt a few times over the past few weeks regarding her edema and plan was to give trial of leg elevation and compression stockings. she has had trouble using the compression stockings and states she keeps her legs elevated as much as possible. she has been on lasix at home for this edema. Her SOB is close to baseline due to her asthma but has slightly worsened and she reports runny nose and some bloody nose at times. Nuclear stress test 10/12/16-No ischemia LVEF 68% Echo 10/12/16-Normal LV systolic function, Normal RV systolic function, mild valvular abnl Edema-likely multifactorial due to chronic venous insufficiency, some degree of acute on chronic diastolic CHF -cont IV Lasix for now -monitor strict I/Os and daily weights -monitor bun/creat, electrolytes and replete as needed -plan to transition to po lasix when tolerates -re venous insufficiency, recc leg elevation and compression stockings, venous US can be performed as outpatient -pt reported having a recent US to rule out DVT that was negative, results not in EMR SOB-multifactorial, mostly due to chronic asthma/copd -no rales currently -monitor for improvement with diuresis -pt follows with security associate Dr. Cabrera Afib-paroxysmal on Xarelto and amio, h/o DCCV, considered for ablation in the past but pt declined -currently NSR -cont amiodarone and Xarelto -occasional mild epistaxis, to be monitored HTN-adequately controlled -cont home medical regimen for now
[2018-02-27] MEDS: AMIODARONE HCL 200 MG TABLET (FP) PO SCH (09:29)
[2018-02-27] MEDS: ASPIRIN 81 MG CHEWABLE TABLETS PO SCH (09:29)
[2018-02-27] MEDS: LOSARTAN POTASSIUM 50 MG TABLET (FP) PO SCH (09:29)
[2018-02-27] MEDS: HYDROCHLOROTHIAZIDE 25 MG TABLET (FP) PO SCH (09:29)
[2018-02-27] MEDS: HEPARIN NA (PORCINE) 5,000 UNITS/ML 1ML VIAL SQ SCH ×2 (09:30→10:15)
[2018-02-27] MEDS: FAMOTIDINE 20 MG/50 ML IVPB 20 MG/50 ML MG IVPB SCH ×2 (09:30→21:18)
[2018-02-27] MEDS ORDERED: PATIENT'S OWN MEDICATION (NON-FORMULARY) (Losartan/Hydrochlorothiazide [Losartan-Hctz 100- PO SCH (10:00)
--- NOTE | 2018-02-27 13:34 | EKG ---
Test Reason : Blood Pressure : / mmHG Vent. Rate : 059 BPM Atrial Rate : 059 BPM P-R Int : 156 ms QRS Dur : 096 ms QT Int : 470 ms P-R-T Axes : 032 -07 033 degrees QTc Int : 465 ms SINUS BRADYCARDIA OTHERWISE NORMAL ECG WHEN COMPARED WITH ECG OF 18-JAN-2018 06:33, NO SIGNIFICANT CHANGE WAS FOUND Confirmed by MD Harrison Edward ([id number]) on 02/27/2018 1:34:21 PM Referred By: Confirmed By:Alfonso Harrison MD
[2018-02-27] MEDS: RIVAROXABAN 20 MG TABLET PO SCH (17:35)
--- NOTE | 2018-02-27 18:11 | PN ---
Progress Note, Physician History of Present Illness: stable - Current Medication List Current Medications: Active Medications Albuterol Sulfate (Ventolin 0.083% Nebulizer Soln -) 1 amp NEB Q4H PRN PRN Reason: SHORT OF BREATH/WHEEZING Amiodarone HCl (Cordarone -) 100 mg PO DAILY [facility] Last Admin: 02/27/18 09:29 Dose: 100 mg Aspirin (Asa -) 81 mg PO DAILY [facility] Last Admin: 02/27/18 09:29 Dose: 81 mg Furosemide (Lasix Injection -) 40 mg IVPUSH BID@0600,1400 [facility] Last Admin: 02/27/18 13:42 Dose: 40 mg Glimepiride (Amaryl -) 4 mg PO 0700 [facility] Last Admin: 02/27/18 06:13 Dose: Not Given Hydrochlorothiazide (Hctz -) 25 mg PO DAILY [facility] Last Admin: 02/27/18 09:29 Dose: 25 mg Famotidine/Sodium Chloride (Pepcid 20 Mg Premixed Ivpb -) 20 mg in 50 mls @ 100 mls/hr IVPB BID [facility] Last Admin: 02/27/18 09:30 Dose: 100 mls/hr Latanoprost (Xalatan 0.005% Eye Drops -) 1 drop OS [facility] Last Admin: 02/27/18 00:23 Dose: Not Given Losartan Potassium (Cozaar -) 100 mg PO DAILY [facility] Last Admin: 02/27/18 09:29 Dose: 100 mg Montelukast Sodium (Singulair -) 10 mg PO HS [facility] Last Admin: 02/26/18 21:20 Dose: 10 mg Ondansetron HCl (Zofran Injection) 4 mg IVPUSH Q4H PRN PRN Reason: NAUSEA AND/OR VOMITING Last Admin: 02/26/18 17:02 Dose: 4 mg Rivaroxaban (Xarelto -) 20 mg PO DAILY@1800 [facility] Last Admin: 02/27/18 17:35 Dose: 20 mg - Objective Vital Signs: Vital Signs Temperature 97.6 F 02/27/18 14:00 Pulse Rate 65 02/27/18 14:00 Respiratory Rate 20 02/27/18 14:00 Blood Pressure 128/71 02/27/18 14:00 O2 Sat by Pulse Oximetry (%) 98 02/26/18 23:35 Constitutional: Yes: No Distress HENT: Yes: Atraumatic Neck: Yes: Supple Cardiovascular: Yes: Regular Rate and Rhythm Respiratory: Yes: CTA Bilaterally Gastrointestinal: Yes: Normal Bowel Sounds Extremities: Yes: WNL Edema: Yes Edema: LLE: 2+, RLE: 2+ Neurological: Yes: Alert, Oriented Labs: CBC, BMP 02/26/18 13:13 02/26/18 13:13 INR, PTT INR 1.84 (0.82-1.09) H D 02/26/18 13:13 Problem List - Problems (1) CHF exacerbation Assessment/Plan: iv lasix continue home meds clinically improving Code(s): I50.9 - HEART FAILURE, UNSPECIFIED (2) CKD (chronic kidney disease) stage 3, GFR 30-59 ml/min Code(s): N18.3 - CHRONIC KIDNEY DISEASE, STAGE 3 (MODERATE) (3) High blood pressure Assessment/Plan: on meds stable Code(s): I10 - ESSENTIAL (PRIMARY) HYPERTENSION Qualifiers: Hypertension type: unspecified secondary hypertension Qualified Code(s): I15.9 - Secondary hypertension, unspecified (4) Hyperlipidemia Assessment/Plan: on meds stable Code(s): E78.5 - HYPERLIPIDEMIA, UNSPECIFIED (5) Type 2 diabetes mellitus Assessment/Plan: insulin, bgms oral hypoglycemics Code(s): E11.9 - TYPE 2 DIABETES MELLITUS WITHOUT COMPLICATIONS
[2018-02-27] MEDS ORDERED: PT OWN MED DRAWER 7, Y5N ONE (20:49)
[2018-02-27] MEDS: MONTELUKAST NA 10 MG TABLET PO SCH (21:18)
[2018-02-27] MEDS: ALBUTEROL SO4 0.083% IH SOL 2.5 MG/3 ML VIAL.NEB. NEB PRN (22:15)
[2018-02-28] MEDS: ALBUTEROL SO4 0.083% IH SOL 2.5 MG/3 ML VIAL.NEB. NEB PRN ×3 (06:10→16:03)
[2018-02-28] MEDS: GLIMEPIRIDE 2 MG TABLET (FP) PO SCH (06:27)
[2018-02-28] MEDS: FUROSEMIDE 40 MG/4 ML INJECTABLE VIAL IVPUSH SCH (06:28)
[2018-02-28 08:10] LABS: BASO % 1.3 % (0-2.0); EOS % 8.7 % (0-4.5); HEMATOCRIT 38.4 % (32.4-45.2); HEMOGLOBIN 12.6 GM/dL (10.7-15.3); MCH 30.4 pg (25.7-33.7); MCHC 32.8 g/dl (32.0-36.0); MEAN CELL VOLUME 92.7 fl (80-96); MEAN PLT VOLUME 8.1 fl (7.5-11.1); MONO % 10.9 % (3.8-10.2); NEUT % 55.1 % (42.8-82.8); PLATELET COUNT 248 K/MM3 (134-434); RBC 4.14 M/mm3 (3.60-5.2); RDW 14.8 % (11.6-15.6); WHITE BLOOD COUNT 8.7 K/mm3 (4.0-10.0)
[2018-02-28 08:49] LABS: ALBUMIN 3.3 g/dl (3.4-5.0); ANION GAP 7 (8-16); BLOOD UREA NITROGEN 19 mg/dL (7-18); CALCIUM 8.8 mg/dL (8.5-10.1); CHLORIDE 97 mmol/L (98-107); CO2 35 mmol/L (21-32); CREATININE 1.1 mg/dL (0.55-1.02); GLUCOSE,RANDOM 100 mg/dL (74-106); POTASSIUM 3.1 mmol/L (3.5-5.1); SGOT/AST 11 U/L (15-37); SGPT/ALT 15 U/L (12-78); SODIUM 139 mmol/L (136-145)
[2018-02-28 08:51] LABS: ALK PHOS 73 U/L (45-117); BILIRUBIN,TOTAL 0.5 mg/dL (0.2-1.0); TOT PROT 7.2 g/dl (6.4-8.2)
[2018-02-28] MEDS: AMIODARONE HCL 200 MG TABLET (FP) PO SCH (10:28)
[2018-02-28] MEDS: FAMOTIDINE 20 MG/50 ML IVPB 20 MG/50 ML MG IVPB SCH (10:28)
[2018-02-28] MEDS: ASPIRIN 81 MG CHEWABLE TABLETS PO SCH (10:28)
[2018-02-28] MEDS: HYDROCHLOROTHIAZIDE 25 MG TABLET (FP) PO SCH (10:29)
[2018-02-28] MEDS: LOSARTAN POTASSIUM 50 MG TABLET (FP) PO SCH (10:29)
[2018-02-28] MEDS ORDERED: MAG HYDROX/AL HYDROX/SIMETH 30 ML UNIT-DOSE CUP PO PRN (12:32)
[2018-02-28 14:31] VITALS: BP 126/67; PULSE 63; TEMP 98.8
--- NOTE | 2018-02-28 16:48 | PN ---
Progress Note, Physician History of Present Illness: seen and examined today in nad. edema slightly improved. - Current Medication List Current Medications: Active Medications Al Hydroxide/Mg Hydroxide (Mylanta Oral Suspension -) 30 ml PO Q6H PRN PRN Reason: INDIGESTION Last Admin: 02/28/18 14:37 Dose: 30 ml Albuterol Sulfate (Ventolin 0.083% Nebulizer Soln -) 1 amp NEB Q4H PRN PRN Reason: SHORT OF BREATH/WHEEZING Last Admin: 02/28/18 16:03 Dose: 1 amp Amiodarone HCl (Cordarone -) 100 mg PO DAILY [facility] Last Admin: 02/28/18 10:28 Dose: 100 mg Aspirin (Asa -) 81 mg PO DAILY [facility] Last Admin: 02/28/18 10:28 Dose: 81 mg Furosemide (Lasix -) 60 mg PO DAILY [facility] Glimepiride (Amaryl -) 4 mg PO 0700 [facility] Last Admin: 02/28/18 06:27 Dose: 4 mg Hydrochlorothiazide (Hctz -) 25 mg PO DAILY [facility] Last Admin: 02/28/18 10:29 Dose: 25 mg Latanoprost (Xalatan 0.005% Eye Drops -) 1 drop OS HS [facility] Last Admin: 02/27/18 21:19 Dose: Not Given Losartan Potassium (Cozaar -) 100 mg PO DAILY [facility] Last Admin: 02/28/18 10:29 Dose: 100 mg Montelukast Sodium (Singulair -) 10 mg PO HS [facility] Last Admin: 02/27/18 21:18 Dose: 10 mg Ondansetron HCl (Zofran Injection) 4 mg IVPUSH Q4H PRN PRN Reason: NAUSEA AND/OR VOMITING Last Admin: 02/26/18 17:02 Dose: 4 mg Pantoprazole Sodium (Protonix -) 40 mg PO DAILY [facility] Rivaroxaban (Xarelto -) 20 mg PO DAILY@1800 [facility] Last Admin: 02/27/18 17:35 Dose: 20 mg - Objective Vital Signs: Vital Signs Temperature 98.8 F 02/28/18 14:00 Pulse Rate 63 02/28/18 14:00 Respiratory Rate 20 02/28/18 14:00 Blood Pressure 126/67 02/28/18 14:00 O2 Sat by Pulse Oximetry (%) 96 02/28/18 10:25 Constitutional: Yes: No Distress, Calm, Obese Eyes: Yes: Conjunctiva Clear, EOM Intact, PERRL HENT: Yes: Atraumatic, Normocephalic Neck: Yes: Supple, Trachea Midline Cardiovascular: Yes: Regular Rate and Rhythm, S1, S2. No: Bradycardia, Tachycardia, Pulse Irregular, Bruit, JVD, Gallop, Murmur, Rub, S3, S4, Varicosities Respiratory: Yes: Regular, Diminished. No: Rales, Rhonchi, SOB, Wheezes Gastrointestinal: Yes: Normal Bowel Sounds, Soft. No: Distention, Tenderness Musculoskeletal: Yes: WNL Extremities: Yes: WNL Edema: LLE: 1+, RLE: 1+ Peripheral Pulses WNL: Yes Peripheral Pulses: Left Doralis Pedis: 2+, Right Dorsalis Pedis: 2+ Neurological: Yes: Alert, Oriented Psychiatric: Yes: Alert, Oriented Labs: CBC, BMP 02/28/18 07:10 02/28/18 07:10 INR, PTT INR 1.84 (0.82-1.09) H D 02/26/18 13:13 - ....Imaging Chest X-ray: Report Reviewed, Image Reviewed EKG: Report Reviewed, Image Reviewed Other: Report Reviewed, Image Reviewed Assessment/Plan 73 year old woman h/o paroxysmal afib on eliquis until recently changed to xarelto due to insurance issues, on amio, HTN, DMII, HLD, chronic asthma, chronic likely diastolic CHF, chronic LE edema admitted with progressively worsening b/l LE edema and slightly worse SOB. Pt seen and examined today in nad. denies any chest pain. no palpitations. I had spoken with pt a few times over the past few weeks regarding her edema and plan was to give trial of leg elevation and compression stockings. she has had trouble using the compression stockings and states she keeps her legs elevated as much as possible. she has been on lasix at home for this edema. Her SOB is close to baseline due to her asthma but has slightly worsened and she reports runny nose and some bloody nose at times. Nuclear stress test 10/12/16-No ischemia LVEF 68% Echo 10/12/16-Normal LV systolic function, Normal RV systolic function, mild valvular abnl Edema-likely multifactorial due to chronic venous insufficiency, some degree of acute on chronic diastolic CHF -BUN/creat trending up with IV Lasix suggesting developing intravascular depletion and supporting etiology of edema as most likely due to chronic venous insufficency -change Lasix back to po -will plan to cont po Lasix as outpatient -D/w pt again extensively regarding recc leg elevation and compression stockings , venous US for venous insuff can be performed as outpatient -US was done to rule out DVT that was negative -amlodipine was stopped a few weeks ago by her pmd as potential source of edema -ok for discharge from a cardiac standpoint with outpatient f/up SOB-multifactorial, mostly due to chronic asthma/copd -no sign of pulm edema currently -currently at baseline -pt follows with gear machine operator Dr. Cabrera -outpatient f/up Afib-paroxysmal on Xarelto and amio, h/o DCCV, considered for ablation in the past but pt declined -currently NSR -cont amiodarone and Xarelto -occasional mild epistaxis, to be monitored HTN-adequately controlled -cont home medical regimen for now Ok for discharge from a cardiac standpoint, please call with any additional questions.
[2018-02-28] MEDS ORDERED: PT OWN MED DRAWER 7, Y5N ONE (16:57)
[2018-02-28] MEDS: RIVAROXABAN 20 MG TABLET PO SCH (17:17)
--- NOTE | 2018-02-28 17:58 | DS ---
Physical Examination Vital Signs: Vital Signs Temperature 98.8 F 02/28/18 14:00 Pulse Rate 63 02/28/18 14:00 Respiratory Rate 20 02/28/18 14:00 Blood Pressure 126/67 02/28/18 14:00 O2 Sat by Pulse Oximetry (%) 96 02/28/18 10:25 Constitutional: Yes: No Distress HENT: Yes: Atraumatic Neck: Yes: Supple Cardiovascular: Yes: Regular Rate and Rhythm Respiratory: Yes: CTA Bilaterally Gastrointestinal: Yes: Normal Bowel Sounds Extremities: Yes: WNL Neurological: Yes: Alert, Oriented Labs: CBC, BMP 02/28/18 07:10 02/28/18 07:10 Discharge Summary Reason For Visit: ACUTE OM CHRONIC CONGESTIVE HEART FAILURE Current Active Problems CHF exacerbation (Acute) Condition: Good - Instructions Referrals: Juan Mesa MD [Staff Physician] - Marilyn Sidhu MD [Primary Care Provider] - - Home Medications Comprehensive Discharge Medication List: Ambulatory Orders Aspirin [ASA -] 81 mg PO DAILY 05/16/12 Montelukast Na [Singulair -] 10 mg PO HS 05/16/12 Amiodarone HCl [Cordarone -] 100 mg PO DAILY #1 11/22/12 Glimepiride [Amaryl -] 4 mg PO DAILY 09/27/13 Multivitamin [Multivitamins] 1 each PO DAILY 12/13/13 Levalbuterol HCl [Xopenex] 0.31 mg IH PRN PRN #0 vial.neb. 12/16/13 Albuterol 0.083% Nebulizer Patricia [Ventolin 0.083% Nebulizer Soln -] 1 neb NEB PRN 03/07/16 Fluticasone Propionate [Flovent Diskus] 250 mcg IH DAILY 03/07/16 Bimatoprost [Lumigan] 1 drop OS HS 09/20/16 Garlic [Odorless Garlic] 1,000 mg PO DAILY 09/20/16 Losartan/Hydrochlorothiazide [Losartan-Hctz 100-25 mg Tab] 1 each PO DAILY 09/20 Albuterol Sulfate Inhaler - [Ventolin HFA Inhaler -] 1 - 2 inh PO Q4H PRN #1 inhaler 02/20/17 Furosemide [Lasix] 60 mg PO DAILY 02/26/18 hi home fu cardiology next week
[2018-03-01] MEDS ORDERED: FUROSEMIDE 20 MG TABLET (FP) PO SCH (10:00)
[2018-03-01] MEDS ORDERED: PANTOPRAZOLE 40 MG TABLET (FP) PO SCH (10:00)
== END 2018-02-28 19:36 | disposition home or self-care (01) | DRG 291 ==
LOC: JER 12:12 → JERBED 16:55 → J6S 19:46
PROVIDERS: ADMIT Internal Medicine; ATTEND Internal Medicine
DX: I13.0 Hypertensive heart and chronic kidney disease with heart failure and stage 1 through stage 4 chronic kidney disease, or unspecified chronic kidney disease (principal); I50.33 Acute on chronic diastolic (congestive) heart failure; E11.22 Type 2 diabetes mellitus with diabetic chronic kidney disease; N18.3 Chronic kidney disease, stage 3 (moderate); E78.5 Hyperlipidemia, unspecified; J45.909 Unspecified asthma, uncomplicated; J44.9 Chronic obstructive pulmonary disease, unspecified; I48.0 Paroxysmal atrial fibrillation; I87.2 Venous insufficiency (chronic) (peripheral)
CPT/HCPCS: 36415; 71046-TC-FY; 80053; 82550; 82962; 83735; 83880; 84484; 85025; 85610; 93005; 93010; 93970-TC; 94640; 99285-25; J1644

== ENCOUNTER 2018-06-11 12:09 | Inpatient (IN) | payer MEDICARE, OTHER ==
--- NOTE | 2018-06-11 13:40 | PDOC ---
History of Present Illness - General Chief Complaint: Pain, Acute Stated Complaint: SWOLLEN ARM Time Seen by Provider: 06/11/18 13:40 - History of Present Illness Initial Comments: 06/11/18 15:20 The patient is a 73 year old female with a history of HTN, HLD, DM, Intermittent Afib on Xeralto who presents for evaluation of right forearm pain. The patient reports achy, sore right forearm pain beginning 1 day ago. The patient noted that her right 5th digit was darker color and colder to the touch this morning prompting her presentation to the ED for further evaluation. She reports full ROM and sensation to the hand and fingers and otherwise denies fevers, chills, SOB, chest pain, nausea, vomiting, abdominal pain, or changes with urination or bowel movements. Past History - Past Medical History Allergies/Adverse Reactions: Allergies Allergy/AdvReac Type Severity Reaction Status Date / Time shellfish derived Allergy Severe Swelling Verified 06/11/18 12:30 lactose Allergy Mild Verified 06/11/18 12:30 Home Medications: Ambulatory Orders Aspirin [ASA -] 81 mg PO DAILY 05/16/12 Montelukast Na [Singulair -] 10 mg PO HS 05/16/12 Amiodarone HCl [Cordarone -] 100 mg PO DAILY #1 11/22/12 Glimepiride [Amaryl -] 4 mg PO DAILY 09/27/13 Multivitamin [Multivitamins] 1 each PO DAILY 12/13/13 Levalbuterol HCl [Xopenex] 0.31 mg IH PRN PRN #0 vial.neb. 12/16/13 Bimatoprost [Lumigan] 1 drop OS HS 09/20/16 Garlic [Odorless Garlic] 1,000 mg PO DAILY 09/20/16 Losartan/Hydrochlorothiazide [Losartan-Hctz 100-25 mg Tab] 1 each PO DAILY 09/20 Asthma: Yes Cardiac Disorders: Yes (intermittent atrial fibrillation) COPD: Yes CHF: No Diabetes: Yes GI Disorders: Yes (diverticulitis, and GERD) Disorders: No HTN: Yes Hypercholesterolemia: Yes - Surgical History Abdominal Surgery: Yes (partial hysterectomy) Appendectomy: No Cholecystectomy: No - Immunization History Immunization Up to Date: Yes - Suicide/Smoking/Psychosocial Hx Smoking Status: Yes Smoking History: Former smoker Have you smoked in the past 12 months: No Number of Cigarettes Smoked Daily: 0 If you are a former smoker, when did you quit?: Over 45 years ago Information on smoking cessation initiated: No Hx Alcohol Use: No Drug/Substance Use Hx: No Substance Use Type: None Hx Substance Use Treatment: No Review of Systems - Review of Systems Comments:: 06/11/18 15:24 Constitutional: No fevers, chills, fatigue, malaise HEENT: No Rhinorrhea, nasal congestion, visual changes Cardiovascular: No chest pain, syncope, palpitations, lightheadedness Respiratory: No Cough, SOB, Hemoptysis, Gastrointestinal: No Abdominal pain, Nausea, Vomiting, Constipation, Diarrhea, Melena Genitourinary: No Dysuria, Frequency, Urgency, Hesitancy, Hematuria, Flank pain Musculoskeletal: Right forearm pain. No Myalgia, arthralgia Skin: No rashes, itching, bruising, pallor Neurologic: No Headache, Dizziness, Numbness, Weakness, or Tingling Psychiatric: No Hallucinations. No SI or HI *Physical Exam - Vital Signs Last Vital Signs Temp Pulse Resp BP Pulse Ox 98.1 F 63 18 138/81 97 06/11/18 12:28 06/11/18 12:28 06/11/18 12:28 06/11/18 12:28 06/11/18 12:28 - Physical Exam Comments: 06/11/18 15:24 General Appearance: Nourished. No Apparent Distress HEENT: No Pharyngeal Erythema, Tonsillar Exudate, Tonsillar Erythema Neck: No Cervical Lymphadenopathy Respiratory/Chest: Lungs Clear, Normal Breath Sounds. No Crackles, Rales, Rhonchi, Wheezing Cardiovascular: Regular Rhythm, Regular Rate. No Murmur, Gallops, Rubs Gastrointestinal/Abdominal: Normal Bowel Sounds, Soft. No Guarding, Rebound, Tenderness Musculoskeletal: No CVA Tenderness Extremity: Dusky appearing right 5th digit with poor capillary refill. Sensation to light touch and temperature intact. 2+ radial pulses bilaterally. Integumentary: Normal Color, Dry, Warm Neurologic: Fully Oriented, Alert, Normal Mood/Affect, Normal Response, ED Treatment Course - LABORATORY CBC & Chemistry Diagram: 06/11/18 14:30 06/11/18 14:30 Medical Decision Making - Medical Decision Making 06/11/18 15:31 The patient is a 73 year old female with a history of HTN, HLD, DM, Intermittent Afib on Xeralto who presents for evaluation of right forearm pain. Differential includes but is not limited to: Arterial occlusion, trauma, infectious, metabolic derangement. Bedside US demonstrates a non-occluded ulnar and radial arteries. Given the patient's history and physical exam, we will obtain a cbc, cmp, coags, and CTA upper extremity to evaluate further. We will continue to monitor and reassess while here in the ED. 06/11/18 19:44 CBC, cmp, coags are unremarkable. CTA upper extremity was unremarkable as preliminarily read by our restoration technician radiologist. However, given the patient's physical exam, it is likely the patient has an arterial occlusion of her right 5th digit. We discussed the case with Dr. Ramirez with vascular surgery who recommended placing the patient on a heparin drip and will come evaluate the patient in the morning. We discussed the case with the admitting team who accepted the patient for admission. *DC/Admit/Observation/Transfer Diagnosis at time of Disposition: Ischemic finger - Discharge Dispostion Condition at time of disposition: Stable Decision to Admit order: Yes - Referrals - Patient Instructions - Post Discharge Activity
[2018-06-11 14:41] LABS: BASO % 1.1 % (0-2.0); EOS % 5.5 % (0-4.5); HEMATOCRIT 41.4 % (32.4-45.2); HEMOGLOBIN 13.8 GM/dL (10.7-15.3); LYMPH % 21.3 % (8-40); MCH 30.6 pg (25.7-33.7); MCHC 33.4 g/dl (32.0-36.0); MEAN CELL VOLUME 91.4 fl (80-96); MEAN PLT VOLUME 8.4 fl (7.5-11.1); MONO % 10.1 % (3.8-10.2); PLATELET COUNT 240 K/MM3 (134-434); RBC 4.53 M/mm3 (3.60-5.2); RDW 15.3 % (11.6-15.6); WHITE BLOOD COUNT 8.5 K/mm3 (4.0-10.0)
[2018-06-11 14:54] LABS: INR 1.72 (0.83-1.09); PROTHROMBIN TIME (PATIENT) 19.4 SEC (9.7-13.0)
[2018-06-11 14:57] LABS: ACTIVATED PTT 38.9 SECONDS (25.2-36.5)
[2018-06-11 15:31] LABS: ALBUMIN 3.5 g/dl (3.4-5.0); ANION GAP 8 MMOL/L (8-16); BLOOD UREA NITROGEN 24 mg/dL (7-18); CALCIUM 8.8 mg/dL (8.5-10.1); CHLORIDE 102 mmol/L (98-107); CO2 31 mmol/L (21-32); GLUCOSE,RANDOM 99 mg/dL (74-106); POTASSIUM 3.8 mmol/L (3.5-5.1); SGOT/AST 15 U/L (15-37); SGPT/ALT 19 U/L (12-78); SODIUM 141 mmol/L (136-145)
[2018-06-11 15:33] LABS: ALK PHOS 85 U/L (45-117); BILIRUBIN,TOTAL 0.4 mg/dL (0.2-1.0); TOT PROT 7.5 g/dl (6.4-8.2)
--- NOTE | 2018-06-11 16:16 | EKG ---
Test Reason : Blood Pressure : / mmHG Vent. Rate : 058 BPM Atrial Rate : 058 BPM P-R Int : 164 ms QRS Dur : 090 ms QT Int : 466 ms P-R-T Axes : 043 -12 028 degrees QTc Int : 457 ms SINUS BRADYCARDIA OTHERWISE NORMAL ECG WHEN COMPARED WITH ECG OF 26-FEB-2018 12:47, NO SIGNIFICANT CHANGE WAS FOUND Confirmed by KEILY GENAO MD ([id number]) on 06/11/2018 4:15:36 PM Referred By: Confirmed By:KEILY GENAO MD
--- NOTE | 2018-06-11 16:46 | PDOC ---
Attending Attestation - Resident Resident Name: Christopher Gutiérrez - ED Attending Attestation I have performed the following: I have examined & evaluated the patient, The case was reviewed & discussed with the resident, I agree w/resident's findings & plan, Exceptions are as noted - HPI HPI: 06/11/18 16:42 73 F with h/o HTN, HLD, DM, pAfib on xarelto presents to ED with R hand pain and discoloration. Pt reports first noticing it yesterday. Reports sudden onset pain radiating from R forearm to hand. Today pt noticed discoloration to her R pinky finger. Denies discoloration or pain in her other hand. Pt denies leg pain. Denies CP/SOB. Denies any significant swelling to her arm. - Physicial Exam PE: 06/11/18 16:44 GENERAL: Awake, alert, and fully oriented, in no acute distress. HEAD: No signs of trauma EYES: PERRLA, EOMI, sclera anicteric, conjunctiva clear ENT: Auricles normal inspection, hearing grossly normal, nares patent, oropharynx clear without exudates. Moist mucosa NECK: Nontender, no stepoffs, Normal ROM, supple, no lymphadenopathy, JVD, or masses LUNGS: Breath sounds equal, clear to auscultation bilaterally. No wheezes, and no crackles HEART: Regular rate and rhythm, normal S1 and S2, no murmurs, rubs or gallops ABDOMEN: Soft, nontender, normoactive bowel sounds. No guarding, no rebound. No masses EXTREMITIES: + RUE with dusky discoloration to R 5th digit, radial and ulnar pulses intact, Normal range of motion, no edema. NEUROLOGICAL: Cranial nerves II through XII intact. 5/5 strength and sensation in all extremities, Normal speech, normal gait, normal cerebellar function SKIN: Warm, Dry, normal turgor, no rashes or lesions noted. - Medical Decision Making 06/11/18 16:45 73 F with acute onset R forearm and hand pain with discoloration of R 5th digit. Concerning for acute arterial occlusion given h/o pAfib. - Labs, coags - CTA RUE
[2018-06-11] MEDS ORDERED: HEPARIN NA (PORCINE) 5,000 UNITS/ML 1ML VIAL IVPUSH PRN ×2 (19:06)
[2018-06-11] MEDS ORDERED: HEPARIN NA (PORCINE) 5,000 UNITS/ML 1ML VIAL ONE (19:44)
[2018-06-11] MEDS ORDERED: HEPARIN INFUSION - 25,000 UNITS/500 ML INFUS.BAG IVPB ONE (19:44)
[2018-06-11] MEDS ORDERED: LEVALBUTEROL HCL 0.31 MG/3 ML VIAL.NEB IH PRN (19:52)
--- NOTE | 2018-06-11 19:52 | HP ---
Admitting History and Physical - Primary Care Physician PCP: Yordy Henry - Admission Chief Complaint: R forearm pain History of Present Illness: 73 year old female with a history of HTN, HLD, DM, Intermittent Afib on Xeralto who presents for evaluation of right forearm pain. The patient reports achy, sore right forearm pain beginning 1 day ago. The patient noted that her right 5th digit was darker color and colder to the touch this morning prompting her presentation to the ED for further evaluation. She reports full ROM and sensation to the hand and fingers and otherwise denies fevers, chills, SOB, chest pain, nausea, vomiting, abdominal pain, or changes with urination or bowel movements. - Past Medical History Cardiovascular: Yes: AFIB, HTN, Hyperlipdemia Pulmonary: Yes: Asthma Endocrine: Yes: Diabetes Mellitus - Past Surgical History Past Surgical History: Yes: Hysterectomy - Smoking History Smoking history: Former smoker Have you smoked in the past 12 months: No Aproximately how many cigarettes per day: 0 If you are a former smoker, when did you quit?: Over 45 years ago - Alcohol/Substance Use Hx Alcohol Use: No - Social History ADL: Independent Home Medications - Allergies Allergies/Adverse Reactions: Allergies Allergy/AdvReac Type Severity Reaction Status Date / Time shellfish derived Allergy Severe Swelling Verified 06/11/18 12:30 lactose Allergy Mild Verified 06/11/18 12:30 - Home Medications Home Medications: Ambulatory Orders Aspirin [ASA -] 81 mg PO DAILY 05/16/12 Montelukast Na [Singulair -] 10 mg PO HS 05/16/12 Amiodarone HCl [Cordarone -] 100 mg PO DAILY #1 11/22/12 Glimepiride [Amaryl -] 4 mg PO DAILY 09/27/13 Multivitamin [Multivitamins] 1 each PO DAILY 12/13/13 Levalbuterol HCl [Xopenex] 0.31 mg IH PRN PRN #0 vial.neb. 12/16/13 Bimatoprost [Lumigan] 1 drop OS HS 09/20/16 Garlic [Odorless Garlic] 1,000 mg PO DAILY 09/20/16 Losartan/Hydrochlorothiazide [Losartan-Hctz 100-25 mg Tab] 1 each PO DAILY 09/20 Family Disease History - Family Disease History Family Disease History: Heart Disease: Father (CHF), Mother (CHF) Physical Examination Vital Signs: Vital Signs Temperature 98.1 F 06/11/18 12:28 Pulse Rate 63 06/11/18 12:28 Respiratory Rate 18 06/11/18 12:28 Blood Pressure 138/81 06/11/18 12:28 O2 Sat by Pulse Oximetry (%) 97 06/11/18 12:28 Constitutional: Yes: No Distress HENT: Yes: Atraumatic Neck: Yes: Supple Cardiovascular: Yes: Regular Rate and Rhythm Respiratory: Yes: CTA Bilaterally Gastrointestinal: Yes: Normal Bowel Sounds Extremities: Yes: WNL, Other (R hand looks normal at this time) Neurological: Yes: Alert, Oriented Labs: CBC, BMP 06/11/18 14:30 06/11/18 14:30 Problem List - Problems (1) Ischemic finger Assessment/Plan: on iv heparin dr castillo on case Code(s): I99.8 - OTHER DISORDER OF CIRCULATORY SYSTEM (2) High blood pressure Assessment/Plan: continue home meds Code(s): I10 - ESSENTIAL (PRIMARY) HYPERTENSION (3) Hyperlipidemia Assessment/Plan: continue home meds Code(s): E78.5 - HYPERLIPIDEMIA, UNSPECIFIED Assessment/Plan Laboratory Results - last 24 hr 06/11/18 06/11/18 06/11/18 14:30 14:30 14:30 WBC 8.5 RBC 4.53 Hgb 13.8 Hct 41.4 MCV 91.4 MCH 30.6 MCHC 33.4 RDW 15.3 Plt Count 240 MPV 8.4 Absolute Neuts (auto) 5.2 Neutrophils % 62.0 Lymphocytes % 21.3 Monocytes % 10.1 Eosinophils % 5.5 H Basophils % 1.1 Nucleated RBC % 0 PT with INR 19.40 H INR 1.72 H PTT (Actin FS) 38.9 H Sodium 141 Potassium 3.8 Chloride 102 Carbon Dioxide 31 Anion Gap 8 BUN 24 H Creatinine 1.0 Creat Clearance w eGFR 54.66 Random Glucose 99 Calcium 8.8 Total Bilirubin 0.4 AST 15 ALT 19 Alkaline Phosphatase 85 Total Protein 7.5 Albumin 3.5 Active Medications Generic Name Dose Route Start Last Admin Trade Name Freq PRN Reason Stop Dose Admin Heparin Sodium (Porcine) 1,000 unit 06/11/18 19:06 Heparin - IVPUSH PRN PRN Heparin Heparin Sodium (Porcine) 5,000 unit 06/11/18 19:06 Heparin - IVPUSH PRN PRN Heparin Heparin Sodium (Porcine) 25, 500 mls @ 20 mls/hr 06/11/18 19:15 000 unit/ Sodium Chloride IV TITR TIFFANY Protocol 1,000 UNIT/HR Active Medications Generic Name Dose Route Start Last Admin Trade Name Freq PRN Reason Stop Dose Admin Amiodarone HCl 100 mg 06/12/18 10:00 06/12/18 10:28 Cordarone - PO Not Given DAILY TIFFANY Aspirin 81 mg 06/12/18 10:00 06/12/18 10:28 Asa - PO 81 mg DAILY TIFFANY Administration Glimepiride 4 mg 06/12/18 07:00 06/12/18 06:54 Amaryl - PO 4 mg ACBK TIFFANY Administration Heparin Sodium (Porcine) 1,000 unit 06/11/18 19:06 Heparin - IVPUSH PRN PRN Heparin Heparin Sodium (Porcine) 5,000 unit 06/11/18 19:06 06/11/18 20:06 Heparin - IVPUSH 5,000 unit PRN PRN Administration Heparin Hydrochlorothiazide 25 mg 06/12/18 10:00 06/12/18 10:27 Hctz - PO 25 mg DAILY TIFFANY Administration Heparin Sodium (Porcine) 25, 500 mls @ 20 mls/hr 06/11/18 19:15 06/12/18 03: 05 000 unit/ Sodium Chloride IV 950 unit/hr TITR TIFFANY 19 mls/hr Titration Protocol 1,000 UNIT/HR Latanoprost 1 drop 06/11/18 22:00 06/11/18 22:21 Xalatan 0.005% Eye Drops - OS Not Given HS TIFFANY Levalbuterol HCl 0.63 mg 06/12/18 11:42 Xopenex IH Q4H PRN WHEEZING Losartan Potassium 100 mg 06/12/18 10:00 06/12/18 12:18 Cozaar - PO 100 mg DAILY TIFFANY Administration Montelukast Sodium 10 mg 06/11/18 22:00 06/11/18 22:17 Singulair - PO 10 mg HS TIFFANY Administration
[2018-06-11] MEDS: HEPARIN - 25,000 UNIT in SODIUM CHLORIDE 495 ML IV SCH (20:06)
[2018-06-11] MEDS: MONTELUKAST NA 10 MG TABLET PO SCH (22:17)
[2018-06-11] MEDS: LATANOPROST 0.005% OPHTH SOLN 2.5ML BOTTLE OS SCH (22:21)
[2018-06-11 23:04] VITALS: BMI 39.6
[2018-06-12] MEDS ORDERED: PT OWN MED DRAWER 7, Y5N ONE ×2 (00:39→20:24)
[2018-06-12] MEDS ORDERED: LEVALBUTEROL HCL 0.63 MG/3 ML VIAL.NEB. IH PRN (05:28)
[2018-06-12] MEDS: GLIMEPIRIDE 4 MG TABLET (FP) PO SCH (06:54)
[2018-06-12 07:45] LABS: BASO % 0.7 % (0-2.0); EOS % 7.7 % (0-4.5); HEMATOCRIT 39.5 % (32.4-45.2); HEMOGLOBIN 12.7 GM/dL (10.7-15.3); LYMPH % 28.5 % (8-40); MCH 29.6 pg (25.7-33.7); MCHC 32.1 g/dl (32.0-36.0); MEAN CELL VOLUME 92.3 fl (80-96); MEAN PLT VOLUME 8.4 fl (7.5-11.1); MONO % 8.4 % (3.8-10.2); NEUT % 54.7 % (42.8-82.8); PLATELET COUNT 220 K/MM3 (134-434); RBC 4.28 M/mm3 (3.60-5.2); RDW 15.5 % (11.6-15.6); WHITE BLOOD COUNT 6.4 K/mm3 (4.0-10.0)
[2018-06-12 08:03] LABS: CHLORIDE 103 mmol/L (98-107); POTASSIUM 3.6 mmol/L (3.5-5.1); SODIUM 141 mmol/L (136-145)
[2018-06-12 08:20] LABS: ALK PHOS 74 U/L (45-117); ANION GAP 6 MMOL/L (8-16); BILIRUBIN,TOTAL 0.5 mg/dL (0.2-1.0); BLOOD UREA NITROGEN 16 mg/dL (7-18); CALCIUM 8.7 mg/dL (8.5-10.1); CO2 32 mmol/L (21-32); CREATININE 0.8 mg/dL (0.55-1.02); GLUCOSE,RANDOM 93 mg/dL (74-106); SGOT/AST 14 U/L (15-37); SGPT/ALT 17 U/L (12-78); TOT PROT 6.7 g/dl (6.4-8.2)
[2018-06-12] MEDS ORDERED: PATIENT'S OWN MEDICATION (NON-FORMULARY) (Losartan/Hydrochlorothiazide [Losartan-Hctz 100- PO SCH (10:00)
[2018-06-12] MEDS: HYDROCHLOROTHIAZIDE 25 MG TABLET (FP) PO SCH (10:27)
[2018-06-12] MEDS: LOSARTAN POTASSIUM 50 MG TABLET (FP) PO SCH ×2 (10:27→12:18)
[2018-06-12] MEDS: ASPIRIN 81 MG CHEWABLE TABLETS PO SCH (10:28)
[2018-06-12] MEDS: AMIODARONE HCL 200 MG TABLET (FP) PO SCH (10:28)
--- NOTE | 2018-06-12 13:33 | CONSULT ---
Consult - History of Present Illness History of Present Illness: 73 year old woman with chronic A fib complains of pain and discoloration of right 5th finger for several days. Pain has improved but finger still dark color. No numbness. She has a history of Afib on Xarelto. - Past Medical History Cardio/Vascular: Yes: AFIB, HTN, Hyperlipdemia Pulmonary: Yes: Asthma Endocrine: Yes: Diabetes Mellitus - Past Surgical History Past Surgical History: Yes: Hysterectomy - Alcohol/Substance Use Hx Alcohol Use: No - Smoking History Smoking history: Former smoker Have you smoked in the past 12 months: No Aproximately how many cigarettes per day: 0 If you are a former smoker, when did you quit?: Over 45 years ago - Social History Usual Living Arrangement: With Child ADL: Independent Home Medications - Allergies Allergies/Adverse Reactions: Allergies Allergy/AdvReac Type Severity Reaction Status Date / Time shellfish derived Allergy Severe Swelling Verified 06/11/18 12:30 lactose Allergy Mild Verified 06/11/18 12:30 - Home Medications Home Medications: Ambulatory Orders Aspirin [ASA -] 81 mg PO DAILY 05/16/12 Montelukast Na [Singulair -] 10 mg PO HS 05/16/12 Amiodarone HCl [Cordarone -] 100 mg PO DAILY #1 11/22/12 Glimepiride [Amaryl -] 4 mg PO DAILY 09/27/13 Multivitamin [Multivitamins] 1 each PO DAILY 12/13/13 Levalbuterol HCl [Xopenex] 0.31 mg IH PRN PRN #0 vial.neb. 12/16/13 Bimatoprost [Lumigan] 1 drop OS HS 09/20/16 Garlic [Odorless Garlic] 1,000 mg PO DAILY 09/20/16 Losartan/Hydrochlorothiazide [Losartan-Hctz 100-25 mg Tab] 1 each PO DAILY 09/20 Esomeprazole Magnesium [Nexium 24Hr] 1 cap PO DAILY 06/12/18 Ventolin HFA Inhaler - 2 inh IN 06/12/18 Family Disease History - Family Disease History Family Disease History: Heart Disease: Father (CHF), Mother (CHF) Physical Exam Vital Signs: Vital Signs Temperature 97.8 F 06/12/18 10:21 Pulse Rate 69 06/12/18 12:15 Respiratory Rate 20 06/12/18 12:15 Blood Pressure 138/71 06/12/18 12:15 O2 Sat by Pulse Oximetry (%) 98 06/11/18 22:00 Constitutional: Yes: No Distress Extremities: Yes: Other (Right hand warm. There is darkening of skin of 5th finger from base to tip. There is no evidence for gangrene or wound on the digit. There is normal movement of the finger.) Peripheral Pulses WNL: Yes (palpable right brachial, radial and ulnar pulses) ...Motor Strength: LUE Labs: CBC, BMP 06/12/18 07:00 06/12/18 07:00 Imaging - Results Cat Scan: Image Reviewed (CTA right arm - no occlusions seen.) Problem List - Problems (1) Ischemic finger Assessment/Plan: There is discoloration of the right 5th finger without evidence for arterial occlusion in the right arm or wrist by exam and CTA. There is no thrombocytosis. A distal embolism to the digital artery or carpal arch is most likely. These vessels are not amenable to surgical thrombectomy and it is unlikely that thrombolysis would be effective. Continuation of anticoagulation is best therapy as the vessels will often reopen with natural thrombolysis or collateral recruitment. A review of the literature suggest Pletal as an effective medication in this setting. Code(s): I99.8 - OTHER DISORDER OF CIRCULATORY SYSTEM
--- NOTE | 2018-06-12 17:16 | CON.CARD ---
Consult Consult Specialty:: Cardiology Referred by:: Dr. Henry Reason for Consultation:: Bradycardia - History of Present Illness Chief Complaint: Right 5th finger pain. History of Present Illness: 73 year old woman with a PMHx of paroxymal atrial fibrillation on Xarelto and Amiodarone, diastolic CHF, HTN, HLD, DM admitted 06/11/2018 with right forearm and right 5th finger pain with discoloration. The patient reports achy, sore right forearm pain beginning 1 day prior to the admission. The patient noted that her right 5th digit was darker color and colder to the touch 06/11/2018 prompting her presentation to the ED for further evaluation. CT angio of right arm performed, report pending. Seen by Vascular, IV heparin started. She was found to have sinus bradycardia with slowest rate of 53 bpm. ECG 06/11/2018 showed sinus bradycardia with heart rate of 58 BMP. Normal axis. Normal ST and T. She has been asymptomatic from cardiac standpoint. She reports no palpitation, dizziness, syncope, near syncope, chest pain or SOB. She has mild leg edema without orthopnea or PND. Limited exercise tolerance due to fatigue. - History Source History Provided By: Patient - Past Medical History Cardio/Vascular: Yes: AFIB, HTN, Hyperlipdemia Pulmonary: Yes: Asthma Endocrine: Yes: Diabetes Mellitus - Past Surgical History Past Surgical History: Yes: Hysterectomy - Alcohol/Substance Use Hx Alcohol Use: No - Smoking History Smoking history: Former smoker Have you smoked in the past 12 months: No Aproximately how many cigarettes per day: 0 If you are a former smoker, when did you quit?: Over 45 years ago - Social History Usual Living Arrangement: With Child ADL: Independent Home Medications - Allergies Allergies/Adverse Reactions: Allergies Allergy/AdvReac Type Severity Reaction Status Date / Time shellfish derived Allergy Severe Swelling Verified 06/11/18 12:30 lactose Allergy Mild Verified 06/11/18 12:30 - Home Medications Home Medications: Ambulatory Orders Aspirin [ASA -] 81 mg PO DAILY 05/16/12 Montelukast Na [Singulair -] 10 mg PO HS 05/16/12 Amiodarone HCl [Cordarone -] 100 mg PO DAILY #1 11/22/12 Glimepiride [Amaryl -] 4 mg PO DAILY 09/27/13 Multivitamin [Multivitamins] 1 each PO DAILY 12/13/13 Levalbuterol HCl [Xopenex] 0.31 mg IH PRN PRN #0 vial.neb. 12/16/13 Bimatoprost [Lumigan] 1 drop OS HS 09/20/16 Garlic [Odorless Garlic] 1,000 mg PO DAILY 09/20/16 Losartan/Hydrochlorothiazide [Losartan-Hctz 100-25 mg Tab] 1 each PO DAILY 09/20 Family Disease History - Family Disease History Family Disease History: Heart Disease: Father (CHF), Mother (CHF) Review of Systems - Review of Systems Constitutional: reports: No Symptoms Eyes: reports: No Symptoms HENT: reports: No Symptoms Neck: reports: No Symptoms Cardiovascular: reports: No Symptoms Respiratory: reports: No Symptoms Gastrointestinal: reports: No Symptoms Genitourinary: reports: No Symptoms Breasts: reports: No Symptoms Reported Musculoskeletal: reports: Extremity Pain Integumentary: reports: Other Neurological: reports: No Symptoms Endocrine: reports: No Symptoms Hematology/Lymphatic: reports: No Symptoms Vital Signs: Vital Signs Temperature 98.3 F 06/12/18 15:33 Pulse Rate 72 06/12/18 15:33 Respiratory Rate 16 06/12/18 15:33 Blood Pressure 138/65 06/12/18 15:33 O2 Sat by Pulse Oximetry (%) 98 06/11/18 22:00 General: Well developed. Obese. No acute distress. Head: Normocephalic. Atraumatic, Eyes: PERRLA, EOMI. Sclerae anicteric. Conjunctivae clear. Neck: Supple. No JVD. No bruits. Heart: Normal S1, S2: Regularly regular rhythm and rate. No murmur. No gallop or rub. Lungs: Symmetrical air entry. Clear to auscultation. No crackle. No wheezing or rhonchi. Abdomen: Soft. Bowel sound positive. Non tender. No masses. Extremities: Right 5th digit cyanosis. Right radial pulse 1+. Trace to 1+ edema. No clubbing or cyanosis. PD 2+, equal bilaterally. Neuro: Intact, no focal findings. AAO X3. - Other Data Labs, Other Data: CBC, BMP 06/12/18 07:00 06/12/18 07:00 INR, PTT INR 1.72 (0.83-1.09) H 06/11/18 14:30 Imaging - Results EKG: Image Reviewed (ECG 06/11/2018 showed sinus bradycardia with heart rate of 58 BMP. Normal axis. Normal ST and T.) Assessment/Plan 73 year old woman with a PMHx of paroxymal atrial fibrillation on Xarelto and Amiodarone, diastolic CHF, HTN, HLD, DM admitted 06/11/2018 with right forearm and right 5th finger pain with discoloration, possible embolic ischemia. CT angio of right arm performed, report pending. Seen by Vascular, IV heparin started. She was found to have sinus bradycardia with slowest rate of 53 bpm. ECG 06/11/2018 showed sinus bradycardia with heart rate of 58 BMP. Normal axis. Normal ST and T. 1) Paroxymal atrial fibrillation on Amiodarone with mild sinus bradycardia now. Continue Amiodarone 100 mg daily for rhythm control. Amiodarone should not be held. May change Xarelto to Eliquis after the acute event for long-tern AC. 2) Diastolic CHF: Stable without dyspnea or fluid overload except for mild leg edema. Continue HTCZ for now. Dr. Mesa will see the patient tomorrow.
--- NOTE | 2018-06-12 18:28 | PN ---
Progress Note, Physician - Current Medication List Current Medications: Active Medications Amiodarone HCl (Cordarone -) 100 mg PO DAILY [facility] Last Admin: 06/12/18 10:28 Dose: Not Given Aspirin (Asa -) 81 mg PO DAILY [facility] Last Admin: 06/12/18 10:28 Dose: 81 mg Glimepiride (Amaryl -) 4 mg PO ACBK [facility] Last Admin: 06/12/18 06:54 Dose: 4 mg Heparin Sodium (Porcine) (Heparin -) 1,000 unit IVPUSH PRN PRN PRN Reason: Heparin Heparin Sodium (Porcine) (Heparin -) 5,000 unit IVPUSH PRN PRN PRN Reason: Heparin Last Admin: 06/11/18 20:06 Dose: 5,000 unit Hydrochlorothiazide (Hctz -) 25 mg PO DAILY [facility] Last Admin: 06/12/18 10:27 Dose: 25 mg Heparin Sodium (Porcine) 25, (000 unit/ Sodium Chloride) 500 mls @ 20 mls/hr IV TITR [facility]; Protocol Last Titration: 06/12/18 03:05 Dose: 950 unit/hr, 19 mls/hr Latanoprost (Xalatan 0.005% Eye Drops -) 1 drop OS HS [facility] Last Admin: 06/11/18 22:21 Dose: Not Given Levalbuterol HCl (Xopenex) 0.63 mg IH Q4H PRN PRN Reason: WHEEZING Losartan Potassium (Cozaar -) 100 mg PO DAILY [facility] Last Admin: 06/12/18 12:18 Dose: 100 mg Montelukast Sodium (Singulair -) 10 mg PO HS [facility] Last Admin: 06/11/18 22:17 Dose: 10 mg - Objective Vital Signs: Vital Signs Temperature 98.3 F 06/12/18 15:33 Pulse Rate 72 06/12/18 15:33 Respiratory Rate 16 06/12/18 15:33 Blood Pressure 138/65 06/12/18 15:33 O2 Sat by Pulse Oximetry (%) 98 06/12/18 10:30 Constitutional: Yes: No Distress HENT: Yes: Atraumatic Neck: Yes: Supple Cardiovascular: Yes: Regular Rate and Rhythm Respiratory: Yes: CTA Bilaterally Gastrointestinal: Yes: Normal Bowel Sounds Extremities: Yes: WNL, Other (R hand looks wnl) Neurological: Yes: Alert, Oriented Labs: CBC, BMP 06/12/18 07:00 06/12/18 07:00 INR, PTT INR 1.72 (0.83-1.09) H 06/11/18 14:30 Problem List - Problems (1) Ischemic finger Assessment/Plan: on iv heparin dr castillo on case Code(s): I99.8 - OTHER DISORDER OF CIRCULATORY SYSTEM (2) High blood pressure Assessment/Plan: continue home meds Code(s): I10 - ESSENTIAL (PRIMARY) HYPERTENSION (3) Hyperlipidemia Assessment/Plan: continue home meds Code(s): E78.5 - HYPERLIPIDEMIA, UNSPECIFIED
[2018-06-12] MEDS: HEPARIN - 25,000 UNIT in SODIUM CHLORIDE 495 ML IV SCH ×2 (20:31→21:39)
[2018-06-12] MEDS: PANTOPRAZOLE 40 MG TABLET (FP) PO SCH (21:40)
[2018-06-12] MEDS: LATANOPROST 0.005% OPHTH SOLN 2.5ML BOTTLE OS SCH (21:45)
[2018-06-12] MEDS: MONTELUKAST NA 10 MG TABLET PO SCH (21:45)
[2018-06-12] MEDS ORDERED: ALBUTEROL SO4 8 GM HFA INHALER IH PRN (22:00)
[2018-06-13] MEDS: GLIMEPIRIDE 4 MG TABLET (FP) PO SCH (06:28)
[2018-06-13] MEDS: LOSARTAN POTASSIUM 50 MG TABLET (FP) PO SCH (11:24)
[2018-06-13] MEDS: HYDROCHLOROTHIAZIDE 25 MG TABLET (FP) PO SCH (11:24)
[2018-06-13] MEDS: AMIODARONE HCL 200 MG TABLET (FP) PO SCH (11:25)
[2018-06-13] MEDS: ASPIRIN 81 MG CHEWABLE TABLETS PO SCH (11:25)
[2018-06-13] MEDS: PANTOPRAZOLE 40 MG TABLET (FP) PO SCH (11:25)
--- NOTE | 2018-06-13 14:25 | PN ---
Progress Note (short form) - Note Progress Note: No complaints Finger appears less discolored No pain OK to switch back to oral anticoagulant as per Cardiology. Can try Pletal if symptoms persist although Amiodarone may be contraindication. Problem List - Problems (1) Ischemic finger Code(s): I99.8 - OTHER DISORDER OF CIRCULATORY SYSTEM
--- NOTE | 2018-06-13 16:15 | ECHO ---
Name: SHANICE SHI Exam:Adult Echocardiogram Study Date: 06/13/2018 03:28 PM Age: 73 yrs Reason For Study: R/O A[employer]IAL [employer]OT VEGETATION Height: 67 in Weight: 253 lb BSA: 2.2 m2 MMode/2D Measurements & Calculations IVSd: 0.95 cm Ao root diam: 2.8 cm LVIDd: 4.4 cm LA dimension: 3.5 cm LVIDs: 2.8 cm LVPWd: 0.93 cm EDV(Teich): 87.6 ml TAPSE: 2.1 cm ESV(Teich): 28.9 ml RV S Jacky: 9.7 cm/sec Doppler Measurements & Calculations MV E max jacky: 67.6 cm/sec Ao V2 max: 146.8 cm/sec MV A max jacky: 17.3 cm/sec Ao max P.6 mmHg MV E/A: 3.9 MV dec time: 0.21 sec LV V1 max P.4 mmHg TR max jacky: 248.9 cm/sec LV V1 max: 77.5 cm/sec TR max P.8 mmHg PI end-d jacky: 113.3 cm/sec Med Peak E' Jacky: 4.8 cm/sec Med E/e': 14.2 Lat Peak E' Jacky: 7.9 cm/sec Lat E/e': 8.6 Procedure A two-dimensional transthoracic echocardiogram with color flow and Doppler was performed. Left Ventricle The left ventricular size, thickness and function are normal. The left ventricular ejection fraction is normal. E/A reversal consistent with but not diagnostic of poor LV compliance. The left ventricular w all motion is normal. Right Ventricle The right ventricle is not well visualized. Atria Normal left and right atrial size and function. Mitral Valve There is mild mitral valve thickening. There is no mitral valve stenosis. There is mild mitral regurg itation. Tricuspid Valve There is mild tricuspid valve thickening. There is no tricuspid stenosis. There is severe tricuspid regurgitation. Right ventricular systolic pressure is elevated at 30-40mmHg. Aortic Valve The aortic valve is normal in structure and function. There is mild aortic valve thickening. No hemodynamically significant valvular aortic stenosis. No aortic regurgitation is present. Pulmonic Valve The pulmonic valve is not well visualized. There is no pulmonic valvular stenosis. Mild pulmonic valv ular regurgitation. Great Vessels The aortic root is normal size. Pericardium/Pleura There is no pericardial effusion. Interpretation Summary The left ventricular size, thickness and function are normal The left ventricular ejection fraction is normal. The left ventricular wall motion is normal. There is severe tricuspid regurgitation. Right ventricular systolic pressure is elevated at 30-40mmHg. There is mild mitral regurgitation. E/A reversal consistent with but not diagnostic of poor LV compliance MD Austen Hylton 06/13/2018 04:15 PM
--- NOTE | 2018-06-13 17:22 | PN ---
Progress Note, Physician History of Present Illness: seen and examined today in [facility]. fingers feel better, still discolored. no numbness, no sig pain. - Current Medication List Current Medications: Active Medications Amiodarone HCl (Cordarone -) 100 mg PO DAILY [facility] Last Admin: 06/13/18 11:25 Dose: 100 mg Aspirin (Asa -) 81 mg PO DAILY [facility] Last Admin: 06/13/18 11:25 Dose: 81 mg Glimepiride (Amaryl -) 4 mg PO ACBK [facility] Last Admin: 06/13/18 06:28 Dose: 4 mg Heparin Sodium (Porcine) (Heparin -) 1,000 unit IVPUSH PRN PRN PRN Reason: Heparin Heparin Sodium (Porcine) (Heparin -) 5,000 unit IVPUSH PRN PRN PRN Reason: Heparin Last Admin: 06/11/18 20:06 Dose: 5,000 unit Hydrochlorothiazide (Hctz -) 25 mg PO DAILY [facility] Last Admin: 06/13/18 11:24 Dose: 25 mg Heparin Sodium (Porcine) 25, (000 unit/ Sodium Chloride) 500 mls @ 20 mls/hr IV TITR [facility]; Protocol Last Admin: 06/12/18 21:39 Dose: Not Given Latanoprost (Xalatan 0.005% Eye Drops -) 1 drop OS HS [facility] Last Admin: 06/12/18 21:45 Dose: 1 drop Levalbuterol HCl (Xopenex) 0.63 mg IH Q4H PRN PRN Reason: WHEEZING Losartan Potassium (Cozaar -) 100 mg PO DAILY [facility] Last Admin: 06/13/18 11:24 Dose: 100 mg Montelukast Sodium (Singulair -) 10 mg PO HS [facility] Last Admin: 06/12/18 21:45 Dose: 10 mg Pantoprazole Sodium (Protonix -) 40 mg PO DAILY [facility] Last Admin: 06/13/18 11:25 Dose: 40 mg - Objective Vital Signs: Vital Signs Temperature 98.3 F 06/13/18 14:42 Pulse Rate 54 L 06/13/18 14:42 Respiratory Rate 18 06/13/18 14:42 Blood Pressure 125/63 06/13/18 14:42 O2 Sat by Pulse Oximetry (%) 98 06/12/18 10:30 Constitutional: Yes: No Distress, Calm Eyes: Yes: Conjunctiva Clear, EOM Intact HENT: Yes: Atraumatic, Normocephalic Neck: Yes: Supple, Trachea Midline Cardiovascular: Yes: Regular Rate and Rhythm, S1, S2. No: Bradycardia, Tachycardia, Pulse Irregular, Bruit, JVD, Gallop, Murmur, Rub, S3, S4, Varicosities Respiratory: Yes: Regular, CTA Bilaterally. No: Rales, Rhonchi, Wheezes Gastrointestinal: Yes: Normal Bowel Sounds, Soft. No: Distention, Tenderness Extremities: Yes: WNL Edema: Yes Edema: LLE: Trace, RLE: Trace Peripheral Pulses WNL: Yes Peripheral Pulses: Left Doralis Pedis: 2+, Right Dorsalis Pedis: 2+ Neurological: Yes: Alert, Oriented Psychiatric: Yes: Alert, Oriented Labs: CBC, BMP 06/12/18 07:00 06/12/18 07:00 INR, PTT INR 1.72 (0.83-1.09) H 06/11/18 14:30 - ....Imaging Chest X-ray: Report Reviewed, Image Reviewed EKG: Report Reviewed, Image Reviewed Other: Report Reviewed, Image Reviewed Assessment/Plan 73 year old woman with a PMHx of paroxymal atrial fibrillation on Xarelto and Amiodarone, diastolic CHF, HTN, HLD, DM admitted 06/11/2018 with right forearm and right 5th finger pain with discoloration, possible embolic ischemia. CT angio of right arm performed, report pending. Seen by Vascular, IV heparin started. She was found to have sinus bradycardia with slowest rate of 53 bpm. ECG 06/11/2018 showed sinus bradycardia with heart rate of 58 BMP. Normal axis. Normal ST and T. 1) Paroxymal atrial fibrillation on Amiodarone with mild sinus bradycardia now. -R 5th finger ischemia, possible embolic phenomenon Continue Amiodarone 100 mg daily for rhythm control. Can start Eliquis 5mg po bid, has been on Xarelto at home (possibly ineffective) 2) Diastolic CHF: Stable without dyspnea or fluid overload except for mild leg edema. Continue HTCZ for now.
[2018-06-13] MEDS: APIXABAN 5 MG TABLET PO SCH ×2 (19:34→22:52)
--- NOTE | 2018-06-13 19:57 | PN ---
Progress Note, Physician - Current Medication List Current Medications: Active Medications Amiodarone HCl (Cordarone -) 100 mg PO DAILY [facility] Last Admin: 06/13/18 11:25 Dose: 100 mg Apixaban (Eliquis -) 5 mg PO BID [facility] Last Admin: 06/13/18 19:34 Dose: 5 mg Aspirin (Asa -) 81 mg PO DAILY [facility] Last Admin: 06/13/18 11:25 Dose: 81 mg Glimepiride (Amaryl -) 4 mg PO ACBK [facility] Last Admin: 06/13/18 06:28 Dose: 4 mg Hydrochlorothiazide (Hctz -) 25 mg PO DAILY [facility] Last Admin: 06/13/18 11:24 Dose: 25 mg Latanoprost (Xalatan 0.005% Eye Drops -) 1 drop OS HS [facility] Last Admin: 06/12/18 21:45 Dose: 1 drop Levalbuterol HCl (Xopenex) 0.63 mg IH Q4H PRN PRN Reason: WHEEZING Losartan Potassium (Cozaar -) 100 mg PO DAILY [facility] Last Admin: 06/13/18 11:24 Dose: 100 mg Montelukast Sodium (Singulair -) 10 mg PO HS [facility] Last Admin: 06/12/18 21:45 Dose: 10 mg Pantoprazole Sodium (Protonix -) 40 mg PO DAILY [facility] Last Admin: 06/13/18 11:25 Dose: 40 mg - Objective Vital Signs: Vital Signs Temperature 98.3 F 06/13/18 18:29 Pulse Rate 59 L 06/13/18 18:29 Respiratory Rate 20 06/13/18 18:29 Blood Pressure 129/74 06/13/18 18:29 O2 Sat by Pulse Oximetry (%) 98 06/12/18 10:30 Constitutional: Yes: No Distress HENT: Yes: Atraumatic Cardiovascular: Yes: Regular Rate and Rhythm Respiratory: Yes: CTA Bilaterally Gastrointestinal: Yes: Normal Bowel Sounds Extremities: Yes: Other (R hand wnl) Edema: No Peripheral Pulses WNL: Yes Neurological: Yes: Alert, Oriented Labs: CBC, BMP 06/12/18 07:00 06/12/18 07:00 INR, PTT INR 1.72 (0.83-1.09) H 06/11/18 14:30 Problem List - Problems (1) Ischemic finger Assessment/Plan: dc iv heparin on po eliquis now Code(s): I99.8 - OTHER DISORDER OF CIRCULATORY SYSTEM (2) High blood pressure Assessment/Plan: continue home meds Code(s): I10 - ESSENTIAL (PRIMARY) HYPERTENSION (3) Hyperlipidemia Assessment/Plan: continue home meds Code(s): E78.5 - HYPERLIPIDEMIA, UNSPECIFIED
[2018-06-13] MEDS: LATANOPROST 0.005% OPHTH SOLN 2.5ML BOTTLE OS SCH (22:52)
[2018-06-13] MEDS: MONTELUKAST NA 10 MG TABLET PO SCH (22:52)
[2018-06-14] MEDS: LEVALBUTEROL HCL 0.63 MG/3 ML VIAL.NEB. IH PRN ×2 (05:55→13:59)
[2018-06-14] MEDS: GLIMEPIRIDE 4 MG TABLET (FP) PO SCH (06:53)
[2018-06-14] MEDS: PANTOPRAZOLE 40 MG TABLET (FP) PO SCH (10:49)
[2018-06-14] MEDS: AMIODARONE HCL 200 MG TABLET (FP) PO SCH (10:49)
[2018-06-14] MEDS: HYDROCHLOROTHIAZIDE 25 MG TABLET (FP) PO SCH (10:50)
[2018-06-14] MEDS: LOSARTAN POTASSIUM 50 MG TABLET (FP) PO SCH (10:50)
[2018-06-14] MEDS: ASPIRIN 81 MG CHEWABLE TABLETS PO SCH (10:50)
[2018-06-14] MEDS ORDERED: PT OWN MED DRAWER 7, Y5N ONE ×3 (11:53→18:44)
[2018-06-14] MEDS: APIXABAN 5 MG TABLET PO SCH (11:58)
[2018-06-14 17:10] VITALS: TEMP 97.9
--- NOTE | 2018-06-14 17:19 | DS ---
Physical Examination Vital Signs: Vital Signs Temperature 97.9 F 06/14/18 17:10 Pulse Rate 61 06/14/18 13:44 Respiratory Rate 16 06/14/18 13:44 Blood Pressure 106/50 06/14/18 13:44 O2 Sat by Pulse Oximetry (%) 97 06/14/18 10:30 Constitutional: Yes: No Distress HENT: Yes: Atraumatic Neck: Yes: Supple Cardiovascular: Yes: Regular Rate and Rhythm Respiratory: Yes: CTA Bilaterally Gastrointestinal: Yes: Normal Bowel Sounds Extremities: Yes: WNL Neurological: Yes: Alert, Oriented Labs: CBC, BMP 06/12/18 07:00 06/12/18 07:00 Discharge Summary Reason For Visit: ISCHEMIA OF FINGER Current Active Problems Ischemic finger (Acute) Condition: Stable - Instructions Referrals: Marilyn Sidhu MD [Primary Care Provider] - - Home Medications Comprehensive Discharge Medication List: Ambulatory Orders Aspirin [ASA -] 81 mg PO DAILY 05/16/12 Montelukast Na [Singulair -] 10 mg PO HS 05/16/12 Amiodarone HCl [Cordarone -] 100 mg PO DAILY #1 11/22/12 Glimepiride [Amaryl -] 4 mg PO DAILY 09/27/13 Multivitamin [Multivitamins] 1 each PO DAILY 12/13/13 Levalbuterol HCl [Xopenex] 0.31 mg IH PRN PRN #0 vial.neb. 12/16/13 Bimatoprost [Lumigan] 1 drop OS HS 09/20/16 Garlic [Odorless Garlic] 1,000 mg PO DAILY 09/20/16 Losartan/Hydrochlorothiazide [Losartan-Hctz 100-25 mg Tab] 1 each PO DAILY 09/20 Esomeprazole Magnesium [Nexium 24Hr] 1 cap PO DAILY 06/12/18 Ventolin HFA Inhaler - 2 inh IN 06/12/18 Apixaban [Eliquis -] 5 mg PO BID #20 tablet 06/13/18 dc home fu vascular/cardiology next week
[2018-06-14 17:20] VITALS: BP 137/64; PULSE 58
--- NOTE | 2018-06-14 18:12 | PN ---
Progress Note, Physician Chief Complaint: Right hand pain and 5 digit discoloration improved with IV heparin. No chest pain or SOB. No palpitation. History of Present Illness: 73 year old woman with a PMHx of paroxymal atrial fibrillation on Xarelto and Amiodarone, diastolic CHF, HTN, HLD, DM admitted 06/11/2018 with right forearm and right 5th finger pain with discoloration. The patient reports achy, sore right forearm pain beginning 1 day prior to the admission. The patient noted that her right 5th digit was darker color and colder to the touch 06/11/2018 prompting her presentation to the ED for further evaluation. CT angio of right arm performed, report pending. Seen by Vascular, IV heparin started. She was found to have sinus bradycardia with slowest rate of 53 bpm. ECG 06/11/2018 showed sinus bradycardia with heart rate of 58 BMP. Normal axis. Normal ST and T. Right hand pain and 5 digit discoloration improved with IV heparin. - Current Medication List Current Medications: Active Medications Amiodarone HCl (Cordarone -) 100 mg PO DAILY [facility] Last Admin: 06/14/18 10:49 Dose: 100 mg Apixaban (Eliquis -) 5 mg PO BID [facility] Last Admin: 06/14/18 11:58 Dose: 5 mg Aspirin (Asa -) 81 mg PO DAILY [facility] Last Admin: 06/14/18 10:50 Dose: 81 mg Glimepiride (Amaryl -) 4 mg PO ACBK [facility] Last Admin: 06/14/18 06:53 Dose: 4 mg Hydrochlorothiazide (Hctz -) 25 mg PO DAILY [facility] Last Admin: 06/14/18 10:50 Dose: 25 mg Latanoprost (Xalatan 0.005% Eye Drops -) 1 drop OS [facility] Last Admin: 06/13/18 22:52 Dose: 1 drop Levalbuterol HCl (Xopenex) 0.63 mg IH Q4H PRN PRN Reason: WHEEZING Last Admin: 06/14/18 13:59 Dose: 0.63 mg Losartan Potassium (Cozaar -) 100 mg PO DAILY [facility] Last Admin: 06/14/18 10:50 Dose: 100 mg Montelukast Sodium (Singulair -) 10 mg PO HS [facility] Last Admin: 06/13/18 22:52 Dose: 10 mg Pantoprazole Sodium (Protonix -) 40 mg PO DAILY [facility] Last Admin: 06/14/18 10:49 Dose: 40 mg - Objective Vital Signs: Vital Signs Temperature 97.9 F 06/14/18 17:10 Pulse Rate 58 L 06/14/18 17:19 Respiratory Rate 20 06/14/18 17:19 Blood Pressure 137/64 06/14/18 17:19 O2 Sat by Pulse Oximetry (%) 97 06/14/18 10:30 General: Well developed. Obese. No acute distress. Head: Normocephalic. Atraumatic, Eyes: PERRLA, EOMI. Sclerae anicteric. Conjunctivae clear. Neck: Supple. No JVD. No bruits. Heart: Normal S1, S2: Regularly regular rhythm and rate. No murmur. No gallop or rub. Lungs: Symmetrical air entry. Clear to auscultation. No crackle. No wheezing or rhonchi. Abdomen: Soft. Bowel sound positive. Non tender. No masses. Extremities: Right 5th digit discoloration improved. No edema. No clubbing or cyanosis. PD 2+, equal bilaterally. Neuro: Intact, no focal findings. AAO X3. Labs: CBC, BMP 06/12/18 07:00 06/12/18 07:00 INR, PTT INR 1.72 (0.83-1.09) H 06/11/18 14:30 Assessment/Plan 73 year old woman with a PMHx of paroxymal atrial fibrillation on Xarelto and Amiodarone, diastolic CHF, HTN, HLD, DM admitted 06/11/2018 with right forearm and right 5th finger pain with discoloration, possible embolic ischemia. CT angio of right arm performed, report pending. Seen by Vascular, IV heparin started. She was found to have sinus bradycardia with slowest rate of 53 bpm. ECG 06/11/2018 showed sinus bradycardia with heart rate of 58 BMP. Normal axis. Normal ST and T. 1) Paroxymal atrial fibrillation on Amiodarone with mild sinus bradycardia now. Continue Amiodarone 100 mg daily for rhythm control. Amiodarone should not be held. Continue Eliquis with aspirin. 2) Diastolic CHF: Stable without dyspnea or fluid overload except for mild leg edema. Continue HTCZ for now. Outpatient cardiac follow up with Dr. Mesa.
== END 2018-06-14 18:48 | disposition home or self-care (01) | DRG 300 ==
LOC: JER 12:09 → JERBED 19:25 → OBSVTOIN 19:52 → J5S 20:37
PROVIDERS: ADMIT Internal Medicine; ATTEND Internal Medicine
PROC: B30HZZZ Plain Radiography of Right Upper Extremity Arteries (ICD-10-PCS; principal; 2018-06-11)
DX: I74.2 Embolism and thrombosis of arteries of the upper extremities (principal); I50.30 Unspecified diastolic (congestive) heart failure; E78.5 Hyperlipidemia, unspecified; I48.0 Paroxysmal atrial fibrillation; I11.0 Hypertensive heart disease with heart failure; E11.9 Type 2 diabetes mellitus without complications; R00.1 Bradycardia, unspecified
CPT/HCPCS: 36415; 73206-TC-RT; 80053; 82962; 85025; 85610; 85730; 93005; 93010; 93306-TC; 93923; 99283-25; G0378; J1644

== ENCOUNTER 2018-08-28 08:30 | Emergency (ER) | payer MEDICARE ==
[2018-08-28 08:40] VITALS: BMI 39.1
[2018-08-28] MEDS ORDERED: ASPIRIN 81 MG CHEWABLE TABLETS PO ONE (09:56)
[2018-08-28] MEDS ORDERED: ASPIRIN 81 MG CHEWABLE TABLETS ONE (10:07)
[2018-08-28 10:41] LABS: BASO % 0.8 % (0-2.0); EOS % 6.5 % (0-4.5); HEMATOCRIT 35.9 % (32.4-45.2); HEMOGLOBIN 12.6 GM/dL (10.7-15.3); LYMPH % 22.9 % (8-40); MCH 31.7 pg (25.7-33.7); MCHC 35.2 g/dl (32.0-36.0); MEAN CELL VOLUME 90.1 fl (80-96); MEAN PLT VOLUME 7.8 fl (7.5-11.1); MONO % 9.6 % (3.8-10.2); NEUT % 60.2 % (42.8-82.8); PLATELET COUNT 249 K/MM3 (134-434); RBC 3.98 M/mm3 (3.60-5.2); WHITE BLOOD COUNT 7.8 K/mm3 (4.0-10.0)
[2018-08-28 10:59] LABS: INR 1.44 (0.83-1.09); PROTHROMBIN TIME (PATIENT) 17.1 SEC (9.7-13.0)
--- NOTE | 2018-08-28 11:22 | PDOC ---
History of Present Illness <Becky Reynolds - Last Filed: 08/28/18 12:29> - General History Source: Patient, Old Records Exam Limitations: No Limitations - History of Present Illness Initial Comments: 08/28/18 11:18 73y/o F h/o htn, hld, dm, p-afib previously on xarelto transitioned to eliquis in June after likely episode of RUE embolization presents now with intermittent light-headedness for 2 weeks. Pt reports a one-second fleeting episode of light-headedness, occurs randomly about 1-2 times per day, not associated with any cp/syncope/focal deficit/headache. not orthostatic or positional, no other changes in her meds. denies recent infectious sxs, normal po intake. last episode was yesterday, presents today wanting to find cause, otherwise no episodes or complaints today <Jeff Gomez - Last Filed: 08/28/18 14:23> - General Chief Complaint: Lightheaded Stated Complaint: DIZZINESS Time Seen by Provider: 08/28/18 09:55 Past History <Becky Reynolds - Last Filed: 08/28/18 12:29> - Past Medical History Asthma: Yes Cardiac Disorders: Yes (intermittent atrial fibrillation) COPD: Yes CHF: No Diabetes: Yes GI Disorders: Yes (diverticulitis, and GERD) Disorders: No HTN: Yes Hypercholesterolemia: Yes - Surgical History Abdominal Surgery: Yes (partial hysterectomy) Appendectomy: No Cholecystectomy: No - Immunization History Immunization Up to Date: Yes - Suicide/Smoking/Psychosocial Hx Smoking Status: Yes Smoking History: Never smoked Have you smoked in the past 12 months: No Number of Cigarettes Smoked Daily: 0 If you are a former smoker, when did you quit?: Over 45 years ago Information on smoking cessation initiated: No Hx Alcohol Use: No Drug/Substance Use Hx: No Substance Use Type: None Hx Substance Use Treatment: No <Jeff Gomez - Last Filed: 08/28/18 14:23> - Past Medical History Allergies/Adverse Reactions: Allergies Allergy/AdvReac Type Severity Reaction Status Date / Time shellfish derived Allergy Severe Swelling Verified 08/28/18 08:36 lactose Allergy Mild Verified 08/28/18 08:36 Home Medications: Ambulatory Orders Aspirin [ASA -] 81 mg PO DAILY 05/16/12 Montelukast Na [Singulair -] 10 mg PO HS 05/16/12 Amiodarone HCl [Cordarone -] 100 mg PO DAILY #1 11/22/12 Glimepiride [Amaryl -] 4 mg PO DAILY 09/27/13 Multivitamin [Multivitamins] 1 each PO DAILY 12/13/13 Levalbuterol HCl [Xopenex] 0.31 mg IH PRN PRN #0 vial.neb. 12/16/13 Bimatoprost [Lumigan] 1 drop OS HS 09/20/16 Garlic [Odorless Garlic] 1,000 mg PO DAILY 09/20/16 Losartan/Hydrochlorothiazide [Losartan-Hctz 100-25 mg Tab] 1 each PO DAILY 09/20 Esomeprazole Magnesium [Nexium 24Hr] 1 cap PO DAILY 06/12/18 Ventolin HFA Inhaler - 2 inh IN 06/12/18 Apixaban [Eliquis -] 5 mg PO BID #20 tablet 06/13/18 Review of Systems - Review of Systems Constitutional: No: Chills, Fever HEENTM: No: Nose Congestion Respiratory: No: Cough, Shortness of Breath Cardiac (ROS): Yes: Lightheadedness, Palpitations. No: Chest Pain, Edema, Syncope ABD/GI: No: Nausea, Vomiting : No: Burning, Dysuria, Frequency, Flank Pain Neurological: No: Headache All Other Systems: Reviewed and Negative <Jeff Gomez - Last Filed: 08/28/18 14:23> *Physical Exam - Vital Signs Last Vital Signs Temp Pulse Resp BP Pulse Ox 97.8 F 55 L 16 156/63 97 08/28/18 08:36 08/28/18 08:36 08/28/18 08:36 08/28/18 08:36 08/28/18 08:36 <Becky Reynolds - Last Filed: 08/28/18 12:29> - Vital Signs Last Vital Signs Temp Pulse Resp BP Pulse Ox 97.8 F 55 L 16 156/63 97 08/28/18 08:36 08/28/18 08:36 08/28/18 08:36 08/28/18 08:36 08/28/18 08:36 - Physical Exam Comments: 08/28/18 11:22 VSS GENERAL: The patient is awake, alert, and fully oriented, in no acute distress. Obese, conversant, well appearing HEAD: Normal with no signs of trauma. EYES: PERRL, EOMI, conjunctiva clear with no pallor. ENT: Moist mucous membranes. NECK: Normal range of motion, supple without lymphadenopathy, JVD, or masses. LUNGS: Breath sounds equal, clear to auscultation bilaterally. No wheeze/ crackles. HEART: Regular slight garret, normal S1 and S2 without murmur or rub. ABDOMEN: Soft/nontender/nondistended. BS wnl. No guarding or rebound. No palpable masses. No hepatosplenomegaly. EXTREMITIES: Normal range of motion, trace b/l pretibial edema. 2+ distal pulses. No cords, erythema, or tenderness. NEUROLOGICAL: Cranial nerves II through XII grossly intact. Normal speech, normal gait. PSYCH: Normal mood, normal affect. SKIN: Warm, Dry, no rashes or lesions noted. <Jeff Gomez - Last Filed: 08/28/18 14:23> Moderate Sedation - Procedure Monitoring Vital Signs: Procedure Monitoring Vital Signs Temperature 97.8 F 08/28/18 08:36 Pulse Rate 55 L 08/28/18 08:36 Respiratory Rate 16 08/28/18 08:36 Blood Pressure 156/63 08/28/18 08:36 O2 Sat by Pulse Oximetry (%) 97 08/28/18 08:36 <Becky Reynolds - Last Filed: 08/28/18 12:29> - Procedure Monitoring Vital Signs: Procedure Monitoring Vital Signs Temperature 97.8 F 08/28/18 08:36 Pulse Rate 55 L 08/28/18 08:36 Respiratory Rate 16 08/28/18 08:36 Blood Pressure 156/63 08/28/18 08:36 O2 Sat by Pulse Oximetry (%) 97 08/28/18 08:36 <Jeff Gomez - Last Filed: 08/28/18 14:23> Heart Score/ECG Review #1 ECG reviewed & interpreted by me at: 10:40 General ECG Interpretation: Sinus Rhythm, Normal Rate (57), Normal Intervals ( qtc 465), No acute ischemic changes <Jeff Gomez Last Filed: 08/28/18 14:23> ED Treatment Course - LABORATORY CBC & Chemistry Diagram: 08/28/18 10:37 08/28/18 10:37 - ADDITIONAL ORDERS Additional order review: Laboratory Results 08/28/18 08/28/18 10:37 10:37 PT with INR 17.10 H INR 1.44 H Sodium 141 Potassium 3.8 Chloride 104 Carbon Dioxide 32 Anion Gap 5 L BUN 18 Creatinine 1.0 Creat Clearance w eGFR 54.66 Random Glucose 83 Calcium 8.5 Magnesium 2.1 Total Bilirubin 0.4 AST 8 L ALT 16 Alkaline Phosphatase 68 Creatine Kinase 104 Troponin I 0.02 Total Protein 6.4 Albumin 3.0 L 08/28/18 10:37 RBC 3.98 MCV 90.1 MCHC 35.2 RDW 15.0 MPV 7.8 Neutrophils % 60.2 Lymphocytes % 22.9 Monocytes % 9.6 Eosinophils % 6.5 H Basophils % 0.8 - Medications Given in the ED: ED Medications Discontinued Medications Generic Name Dose Route Start Last Admin Trade Name Freq PRN Reason Stop Dose Admin Aspirin 162 mg 08/28/18 09:56 08/28/18 10:23 Asa - PO 08/28/18 09:57 162 mg ONCE ONE Administration <Becky Reynolds - Last Filed: 08/28/18 12:29> - LABORATORY CBC & Chemistry Diagram: 08/28/18 10:37 08/28/18 10:37 - ADDITIONAL ORDERS Additional order review: Laboratory Results 08/28/18 10:37 PT with INR 17.10 H INR 1.44 H 08/28/18 10:37 RBC 3.98 MCV 90.1 MCHC 35.2 RDW 15.0 MPV 7.8 Neutrophils % 60.2 Lymphocytes % 22.9 Monocytes % 9.6 Eosinophils % 6.5 H Basophils % 0.8 - RADIOLOGY Radiology Studies Ordered: Category Date Time Status CHEST X-RAY PORTABLE* [RAD] Stat Radiology 08/28/18 09:57 Taken - Medications Given in the ED: ED Medications Discontinued Medications Generic Name Dose Route Start Last Admin Trade Name Freq PRN Reason Stop Dose Admin Aspirin 162 mg 08/28/18 09:56 08/28/18 10:23 Asa - PO 08/28/18 09:57 162 mg ONCE ONE Administration <Jeff Gomez - Last Filed: 08/28/18 14:23> Medical Decision Making - Medical Decision Making 08/28/18 12:[address] Mesa, awaiting call back. 12:[address] Mesa, case was discussed. <Becky Reynolds - Last Filed: 08/28/18 12:29> - Medical Decision Making 08/28/18 11:26 73-year-old female with history of hypertension, diabetes, high cholesterol, paroxysmal atrial fibrillation on anticoagulation presents with intermittent and transient episodes of lightheadedness over the last 2 weeks, well-appearing here with normal vital signs and normal exam/EKG. Question ectopic beats with symptoms, none captured on EKG. Rule out infectious etiology or electrolyte abnormality, not consistent with ACS. 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 Urinalysis clear. No further episodes in the emergency department, she is ambulating steadily and feels well. Discussed with Dr. Mesa, who knows the patient well. Agrees with discharge plan, will likely arrange for Holter as outpatient. Patient agrees with discharge, understands return criteria. <Jeff Gomez - Last Filed: 08/28/18 14:23> *DC/Admit/Observation/Transfer - Attestations Scribe Attestion: 08/28/18 12:21 Documentation prepared by Becky Reynolds, acting as medical office clerk for Jeff Gomez MD. <Becky Reynolds - Last Filed: 08/28/18 12:29> <Jeff Gomez - Last Filed: 08/28/18 14:23> Diagnosis at time of Disposition: Episodic lightheadedness - Discharge Dispostion Disposition: HOME Condition at time of disposition: Stable - Referrals Referrals: Marilyn Sidhu MD [Primary Care Provider] - Juan Mesa MD [Staff Physician] - - Patient Instructions Printed Discharge Instructions: DI for Dizziness-Nonvertigo Additional Instructions: Activity as tolerated. Stay hydrated. Blood tests, an EKG, a chest x-ray, and a urinalysis showed no acute abnormalities today. Continue your medications as previously prescribed by your physician. You should follow up with Dr. Alatorre and Dr. Mesa as soon as possible regarding today's emergency department visit. Return to the emergency department for any new or concerning symptoms, particularly chest pain, persistent palpitations, shortness of breath, weakness or persistent dizziness. - Post Discharge Activity
[2018-08-28 11:26] LABS: ALK PHOS 68 U/L (45-117); ANION GAP 5 MMOL/L (8-16); BILIRUBIN,TOTAL 0.4 mg/dL (0.2-1); BLOOD UREA NITROGEN 18 mg/dL (7-18); CALCIUM 8.5 mg/dL (8.5-10.1); CHLORIDE 104 mmol/L (98-107); CO2 32 mmol/L (21-32); GLUCOSE,RANDOM 83 mg/dL (74-106); MAGNESIUM 2.1 mg/dL (1.8-2.4); POTASSIUM 3.8 mmol/L (3.5-5.1); SGOT/AST 8 U/L (15-37); SGPT/ALT 16 U/L (13-61); SODIUM 141 mmol/L (136-145); TOT PROT 6.4 g/dl (6.4-8.2)
--- NOTE | 2018-08-28 12:24 | EKG ---
Test Reason : Blood Pressure : / mmHG Vent. Rate : 057 BPM Atrial Rate : 057 BPM P-R Int : 168 ms QRS Dur : 092 ms QT Int : 478 ms P-R-T Axes : 044 -07 028 degrees QTc Int : 465 ms SINUS BRADYCARDIA OTHERWISE NORMAL ECG Confirmed by MD JESSICA, EMPERATRIZ ([id number]) on 08/28/2018 12:24:42 PM Referred By: Confirmed By:EMPERATRIZ LOPEZ MD
[2018-08-28 14:06] LABS: URINE APPEARANCE CLEAR; URINE BILIRUBIN NEGATIVE (<2.0 mg/dL); URINE COLOR LTYELLOW; URINE GLUCOSE (UA) NEGATIVE (NEGATIVE); URINE KETONE NEGATIVE (NEGATIVE); URINE LEUK ESTERASE NEGATIVE (NEGATIVE); URINE NITRITE NEGATIVE (NEGATIVE); URINE PROTEIN NEGATIVE (NEGATIVE); URINE UROBILINOGEN NEGATIVE mg/dL (0.2-1.0)
[2018-08-28 14:47] VITALS: BP 123/55; PULSE 60; TEMP 98.5
== END 2018-08-28 15:05 | disposition home or self-care (01) ==
LOC: JER 08:30
DX: R42 Dizziness and giddiness (principal); I10 Essential (primary) hypertension; E78.00 Pure hypercholesterolemia, unspecified; E11.9 Type 2 diabetes mellitus without complications; Z79.84 Long term (current) use of oral hypoglycemic drugs; I48.0 Paroxysmal atrial fibrillation; Z79.01 Long term (current) use of anticoagulants; J44.9 Chronic obstructive pulmonary disease, unspecified; J45.909 Unspecified asthma, uncomplicated
CPT/HCPCS: 36415; 71045-TC-FY; 80053; 81003; 82550; 83735; 84484; 85025; 85610; 93005; 93010; 99281-25

== ENCOUNTER 2018-09-20 08:34 | Emergency (ER) | payer MEDICARE ==
[2018-09-20 08:52] VITALS: BMI 40.3
--- NOTE | 2018-09-20 09:53 | PDOC ---
Attending Attestation - Medical Decision Making 09/20/18 11:[address] Mesa's office, awaiting call back. <Becky Reynolds - Last Filed: 09/20/18 11:47> - Resident Resident Name: AngelitaGuilherme - ED Attending Attestation I have performed the following: I have examined & evaluated the patient, The case was reviewed & discussed with the resident, I agree w/resident's findings & plan, Exceptions are as noted - HPI HPI: 09/20/18 09:54 Ms. Barnes is a 73y/o F h/o HTN, HLD, DM, PAF on Eliquis (last ER visit 1 month ag for episode of dizziness) who presents to the ER with a complaint of palpitations which woke her from sleep at 6:50 am No associated chest pain While she had these symptoms, she felt short of breath All of her symptoms have currently resolved They were present for approximately 1 hour No dizziness Pt reports compliance with her medications - Physicial Exam PE: 09/20/18 09:50 GENERAL: The patient is in no acute distress. HEAD: Normal EYES: PERRLA, EOMI, sclera anicteric, conjunctiva clear. ENT: Ears normal, nares patent, oropharynx clear without exudates. Moist mucous membranes. NECK: Normal range of motion, supple without JVD LUNGS: Breath sounds equal, clear to auscultation bilaterally. No crackles. HEART: Irregularly, irregular, normal S1 and S2 without murmur ABDOMEN: Soft, nontender, normoactive bowel sounds. No guarding, no rebound. EXTREMITIES: Normal range of motion, no edema. SKIN: Warm, Dry, normal turgor, no rashes or lesions noted. 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 09/20/18 12:[address] Mesa He is comfortable with this patient's labs and presentation She typically comes in this way Will discharge to home Pt to follow up with him in the office Clinical Impression: paroxysmal afib, initial presentation <Patricia Del Cid - Last Filed: 09/20/18 12:24> *DC/Admit/Observation/Transfer - Discharge Dispostion Decision to Admit order: No <Patricia Del Cid - Last Filed: 09/20/18 12:24> Diagnosis at time of Disposition: Palpitations - Discharge Dispostion Disposition: HOME Condition at time of disposition: Stable - Referrals Referrals: Juan Mesa MD [Staff Physician] - - Patient Instructions Printed Discharge Instructions: DI for Palpitations, DI for Atrial Fibrillation Additional Instructions: Ms Barnes Thank you for coming in to the ER today Your labs appear to be at your baseline If you have any chest pain, shortness of breath, weakness, dizziness, please return to the ER Please be sure to follow up with Dr Mesa in the office (Call the office tomorrow) Attestations - Attestations 09/20/18 11:49 Documentation prepared by Becky Reynolds, acting as anesthesiology medical doctor for Patricia Del Cid MD. <Becky Reynolds - Last Filed: 09/20/18 11:47>
[2018-09-20 10:17] LABS: EOS % 7.3 % (0-4.5); HEMOGLOBIN 13.8 GM/dL (10.7-15.3); LYMPH % 19.6 % (8-40); MCH 31.2 pg (25.7-33.7); MCHC 34.4 g/dl (32.0-36.0); MEAN CELL VOLUME 90.7 fl (80-96); MEAN PLT VOLUME 8.4 fl (7.5-11.1); MONO % 10.8 % (3.8-10.2); NEUT % 61.3 % (42.8-82.8); PLATELET COUNT 229 K/MM3 (134-434); RBC 4.41 M/mm3 (3.60-5.2); RDW 14.6 % (11.6-15.6)
[2018-09-20 10:31] LABS: INR 1.33 (0.83-1.09); PROTHROMBIN TIME (PATIENT) 15.7 SEC (9.7-13.0)
--- NOTE | 2018-09-20 11:05 | PDOC ---
History of Present Illness - General Chief Complaint: Palpitations Stated Complaint: PALPITATIONS Time Seen by Provider: 09/20/18 09:22 History Source: Patient Exam Limitations: No Limitations - History of Present Illness Initial Comments: 09/20/18 11:02 Patient is a 73F with history of paroxysmal afib on eliquis, HTN, HLD, DM here today after waking up with palpitations this morning. Palpitations have since resolved. Denies chest pain, shortness of breath, fever, chills, nausea, vomiting. Denies leg swelling. 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 Past History - Past Medical History Allergies/Adverse Reactions: Allergies Allergy/AdvReac Type Severity Reaction Status Date / Time shellfish derived Allergy Severe Swelling Verified 09/20/18 14:44 lactose Allergy Mild Verified 09/20/18 14:44 Home Medications: Ambulatory Orders Aspirin [ASA -] 81 mg PO DAILY 05/16/12 Montelukast Na [Singulair -] 10 mg PO HS 05/16/12 Amiodarone HCl [Cordarone -] 100 mg PO DAILY #1 11/22/12 Glimepiride [Amaryl -] 4 mg PO DAILY 09/27/13 Multivitamin [Multivitamins] 1 each PO DAILY 12/13/13 Levalbuterol HCl [Xopenex] 0.31 mg IH PRN PRN #0 vial.neb. 12/16/13 Bimatoprost [Lumigan] 1 drop OS HS 09/20/16 Garlic [Odorless Garlic] 1,000 mg PO DAILY 09/20/16 Losartan/Hydrochlorothiazide [Losartan-Hctz 100-25 mg Tab] 1 each PO DAILY 09/20 Esomeprazole Magnesium [Nexium 24Hr] 1 cap PO DAILY 06/12/18 Apixaban [Eliquis -] 5 mg PO BID #20 tablet 06/13/18 Asthma: Yes Cardiac Disorders: Yes (intermittent atrial fibrillation) COPD: Yes CHF: No Diabetes: Yes GI Disorders: Yes (diverticulitis, and GERD) Disorders: No HTN: Yes Hypercholesterolemia: Yes - Surgical History Abdominal Surgery: Yes (partial hysterectomy) Appendectomy: No Cholecystectomy: No - Immunization History Immunization Up to Date: Yes - Suicide/Smoking/Psychosocial Hx Smoking Status: Yes Smoking History: Never smoked Have you smoked in the past 12 months: No Number of Cigarettes Smoked Daily: 0 If you are a former smoker, when did you quit?: Over 45 years ago Information on smoking cessation initiated: No Hx Alcohol Use: No Drug/Substance Use Hx: No Substance Use Type: None Hx Substance Use Treatment: No Review of Systems - Review of Systems Comments:: 09/20/18 11:05 GENERAL/CONSTITUTIONAL: No fever or chills. No weakness. HEAD, EYES, EARS, NOSE AND THROAT: No change in vision. No sore throat. CARDIOVASCULAR: No chest pain or shortness of breath +palpitations RESPIRATORY: No cough, wheezing, or hemoptysis. GASTROINTESTINAL: No nausea, vomiting, diarrhea or constipation. GENITOURINARY: No dysuria, frequency, or change in urination. MUSCULOSKELETAL: No joint or muscle swelling or pain. No neck or back pain. SKIN: No rash NEUROLOGIC: No headache, vertigo, loss of consciousness, or change in strength/ sensation. ENDOCRINE: No increased thirst. No abnormal weight change HEMATOLOGIC/LYMPHATIC: No anemia, easy bleeding, +history of blood clots. *Physical Exam - Vital Signs Last Vital Signs Temp Pulse Resp BP Pulse Ox 98.1 F 63 20 137/71 98 09/20/18 08:48 09/20/18 08:48 09/20/18 08:48 09/20/18 08:48 09/20/18 08:48 - Physical Exam Comments: 09/20/18 11:06 GENERAL: Awake, alert, and fully oriented, in no acute distress HEAD: No signs of trauma, normocephalic, atraumatic EYES: PERRLA, EOMI, sclera anicteric, conjunctiva clear ENT: Auricles normal inspection, hearing grossly normal, nares patent, oropharynx clear without exudates. Moist mucosa NECK: Normal ROM, supple, no lymphadenopathy, JVD, or masses LUNGS: No distress, speaks full sentences, clear to auscultation bilaterally HEART: Regular rate and rhythm, normal S1 and S2, no murmurs, rubs or gallops, peripheral pulses normal and equal bilaterally. ABDOMEN: Soft, nontender, normoactive bowel sounds. No guarding, no rebound. No masses EXTREMITIES: Normal inspection, Normal range of motion, no edema. No clubbing or cyanosis. NEUROLOGICAL: Cranial nerves II through XII grossly intact. Normal speech, no focal sensorimotor deficits SKIN: Warm, Dry, normal turgor, no rashes or lesions noted. Moderate Sedation - Procedure Monitoring Vital Signs: Procedure Monitoring Vital Signs Temperature 98.1 F 09/20/18 08:48 Pulse Rate 63 09/20/18 08:48 Respiratory Rate 20 09/20/18 08:48 Blood Pressure 137/71 09/20/18 08:48 O2 Sat by Pulse Oximetry (%) 98 09/20/18 08:48 ED Treatment Course - LABORATORY CBC & Chemistry Diagram: 09/20/18 10:10 09/20/18 10:10 - ADDITIONAL ORDERS Additional order review: Laboratory Results 09/20/18 10:10 PT with INR 15.70 H INR 1.33 H 09/20/18 10:10 RBC 4.41 MCV 90.7 MCHC 34.4 RDW 14.6 MPV 8.4 Neutrophils % 61.3 Lymphocytes % 19.6 Monocytes % 10.8 H Eosinophils % 7.3 H Basophils % 1.0 - RADIOLOGY Radiology Studies Ordered: Category Date Time Status CHEST PA & LAT [RAD] Stat Radiology 09/20/18 09:49 Ordered Medical Decision Making - Medical Decision Making 09/20/18 11:06 Patient is 73F with history of paroxysmal afib, htn, hld, dm here today with palpitations, now resolved. Vitals normal and stable. EKG shows afib with rate of 87. No st elevations/depressions. Normal axis. Normal QRS/QTc intervals. No significant t wave abnormalities. DDx includes, but is not limited to: arrhythmia, electrolyte disturbance, acs. Suspect likely run of rapid afib, but patient is now stable. 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 No chest pain. Will likely discharge. 09/20/18 11:42 Laboratory Tests 09/20/18 09/20/18 10:10 10:10 WBC 7.0 Hgb 13.8 Plt Count 229 BUN 19 H Creatinine 0.9 Troponin I 0.04 CBC normal. Troponin detectable but below threshold, normal for this patient. CMP shows normal kidney function. Pending CXR. 09/20/18 18:53 Dr Del Cid d/w Dr Mesa. Safe for discharge. Will follow up. *DC/Admit/Observation/Transfer Diagnosis at time of Disposition: Palpitations - Discharge Dispostion Disposition: HOME Condition at time of disposition: Stable - Referrals Referrals: Juan Mesa MD [Staff Physician] - - Patient Instructions Printed Discharge Instructions: DI for Atrial Fibrillation, DI for Palpitations Additional Instructions: Ms Barnes Thank you for coming in to the ER today Your labs appear to be at your baseline If you have any chest pain, shortness of breath, weakness, dizziness, please return to the ER Please be sure to follow up with Dr Mesa in the office (Call the office tomorrow) - Post Discharge Activity
[2018-09-20 11:15] LABS: ALBUMIN 3.1 g/dl (3.4-5.0); ALK PHOS 74 U/L (45-117); ANION GAP 7 MMOL/L (8-16); BILIRUBIN,TOTAL 0.5 mg/dL (0.2-1); BLOOD UREA NITROGEN 19 mg/dL (7-18); CALCIUM 8.6 mg/dL (8.5-10.1); CHLORIDE 106 mmol/L (98-107); CO2 28 mmol/L (21-32); CREATININE 0.9 mg/dL (0.55-1.3); GLUCOSE,RANDOM 119 mg/dL (74-106); POTASSIUM 3.8 mmol/L (3.5-5.1); SGOT/AST 20 U/L (15-37); SGPT/ALT 19 U/L (13-61); SODIUM 140 mmol/L (136-145); TOT PROT 6.6 g/dl (6.4-8.2)
[2018-09-20 14:56] VITALS: BP 121/72; PULSE 60; TEMP 98
--- NOTE | 2018-09-20 16:56 | EKG ---
Test Reason : Blood Pressure : / mmHG Vent. Rate : 087 BPM Atrial Rate : 089 BPM P-R Int : 000 ms QRS Dur : 100 ms QT Int : 396 ms P-R-T Axes : 000 -17 050 degrees QTc Int : 476 ms ATRIAL FIBRILLATION WITH A COMPETING JUNCTIONAL PACEMAKER ABNORMAL ECG WHEN COMPARED WITH ECG OF 28-AUG-2018 10:40, ATRIAL FIBRILLATION HAS REPLACED SINUS RHYTHM VENT. RATE HAS INCREASED BY 30 BPM Confirmed by THI ANGELO, MIGUEL ANGEL ([id number]) on 09/20/2018 4:56:41 PM Referred By: Confirmed By:MIGUEL ANGEL NESS MD
== END 2018-09-20 13:15 | disposition home or self-care (01) ==
LOC: JER 08:34
DX: R00.2 Palpitations (principal); I48.0 Paroxysmal atrial fibrillation; Z79.01 Long term (current) use of anticoagulants; I10 Essential (primary) hypertension; E11.9 Type 2 diabetes mellitus without complications; Z79.84 Long term (current) use of oral hypoglycemic drugs; E78.00 Pure hypercholesterolemia, unspecified
CPT/HCPCS: 36415; 71046-TC-FY; 80053; 82550; 82553; 83735; 84484; 85025; 85610; 93005; 93010; 99285-25

== ENCOUNTER 2018-10-08 06:17 | Inpatient (IN) | payer OTHER ==
[2018-10-08] MEDS ORDERED: ALBUTEROL SO4 0.083% IH SOL 2.5 MG/3 ML VIAL.NEB. NEB ONE ×2 (07:33→07:43)
--- NOTE | 2018-10-08 07:36 | PDOC ---
Attending Attestation - Resident Resident Name: Martha Thomas - ED Attending Attestation I have performed the following: I have examined & evaluated the patient, The case was reviewed & discussed with the resident, I agree w/resident's findings & plan, Exceptions are as noted - HPI HPI: 73 yo F history HTN, DM, HL, CHF, paroxysmal afib, asthma presents with palpitations for the past 3 days. She states she has been having SOB, cough with yellow sputum, just slightly above her baseline. She also c/o dizziness. No cp, fever. - Physicial Exam PE: GENERAL: Awake, alert, and fully oriented, in no acute distress HEAD: No signs of trauma EYES: PERRLA, EOMI, sclera anicteric, conjunctiva clear ENT: Auricles normal inspection, hearing grossly normal, nares patent, oropharynx clear without exudates. Moist mucosa NECK: Normal ROM, supple, no lymphadenopathy, JVD, or masses LUNGS: Breath sounds equal, clear to auscultation bilaterally. No wheezes, and no crackles HEART: Regular rate and rhythm, normal S1 and S2, no murmurs, rubs or gallops ABDOMEN: Soft, nontender, normoactive bowel sounds. No guarding, no rebound. No masses EXTREMITIES: Normal range of motion, 2+ edema BLE. No clubbing or cyanosis. No cords, erythema, or tenderness NEUROLOGICAL: Cranial nerves II through XII grossly intact. Normal speech, normal gait. Motor and sensation intact SKIN: Warm, Dry, normal turgor, no rashes or lesions noted. - Medical Decision Making Pt with palpitations, cough, wheezing. Improved with duoneb x1. Symptoms are atypical for ACS, will do serial trops x2. Will give AM meds, as she has history of afib.
--- NOTE | 2018-10-08 07:44 | PDOC ---
History of Present Illness - General History Source: Patient Exam Limitations: No Limitations - History of Present Illness Initial Comments: 10/08/18 07:43 Patient is a 73 year old female with a PMHx of HTN, NIDDMII, HLD, diastolic HF, Paroxysmal Atrial fibrillation (On amiodarone and Eliquis), chronic LE edema , asthma who presents here today reporting "palpitations" that started Monday. Patient reports initially the palpitations stopped by Monday night but returned this morning associated with dizziness, productive cough with yellow phlegm and body aches. Patient states she is concerned for Pneumonia or the flu. Otherwise, patient denies chest pain, shortness of breath, fevers, chills, nausea, vomiting, abdominal pain, diarrhea, constipation, headache, dizziness, acute vision changes, dysuria, hematuria, melena, hematochezia, hematemesis. Patient reports having her flu shot this year Patient denies being around sick contacts PCP: Pam Dejesus PMHx: HTN NIDDMII HLD Atrial Fibrillation (On Eliquis and Amiodarone) Diastolic HF Asthma Arthritis Chronic LE edema PSHx: Hysterectomy Social Hx: Denies alcohol use Denies drug use Denies smoking <Martha Thomas - Last Filed: 10/08/18 13:13> <Yasmin Alvarado - Last Filed: 10/08/18 16:20> - General Chief Complaint: Palpitations Stated Complaint: PALPATATIONS Time Seen by Provider: 10/08/18 07:18 Past History - Past Medical History Asthma: Yes Cardiac Disorders: Yes (intermittent atrial fibrillation) COPD: Yes CHF: No Diabetes: Yes GI Disorders: Yes (diverticulitis, and GERD) Disorders: No HTN: Yes Hypercholesterolemia: Yes - Surgical History Abdominal Surgery: Yes (partial hysterectomy) Appendectomy: No Cholecystectomy: No - Immunization History Immunization Up to Date: Yes - Suicide/Smoking/Psychosocial Hx Smoking Status: Yes Smoking History: Never smoked Have you smoked in the past 12 months: No Number of Cigarettes Smoked Daily: 0 If you are a former smoker, when did you quit?: Over 45 years ago Hx Alcohol Use: No Drug/Substance Use Hx: No Substance Use Type: None Hx Substance Use Treatment: No <Martha Thomas - Last Filed: 10/08/18 13:13> <Yasmin Alvarado - Last Filed: 10/08/18 16:20> - Past Medical History Allergies/Adverse Reactions: Allergies Allergy/AdvReac Type Severity Reaction Status Date / Time shellfish derived Allergy Severe Swelling Verified 09/20/18 14:44 lactose Allergy Mild Verified 09/20/18 14:44 Home Medications: Ambulatory Orders Aspirin [ASA -] 81 mg PO DAILY 05/16/12 Montelukast Na [Singulair -] 10 mg PO HS 05/16/12 Amiodarone HCl [Cordarone -] 100 mg PO DAILY #1 11/22/12 Glimepiride [Amaryl -] 4 mg PO DAILY 09/27/13 Multivitamin [Multivitamins] 1 each PO DAILY 12/13/13 Levalbuterol HCl [Xopenex] 0.31 mg IH PRN PRN #0 vial.neb. 12/16/13 Bimatoprost [Lumigan] 1 drop OS HS 09/20/16 Garlic [Odorless Garlic] 1,000 mg PO DAILY 09/20/16 Losartan/Hydrochlorothiazide [Losartan-Hctz 100-25 mg Tab] 1 each PO DAILY 09/20 Esomeprazole Magnesium [Nexium 24Hr] 1 cap PO DAILY 06/12/18 Apixaban [Eliquis -] 5 mg PO BID #20 tablet 06/13/18 Review of Systems - Review of Systems Constitutional: No: Chills, Diaphoresis, Fever, Night Sweats HEENTM: Yes: Nose Congestion. No: Ear Discharge, Nose Pain Respiratory: Yes: Cough, Wheezing, Productive cough. No: Orthopnea, Shortness of Breath, SOB with Exertion, SOB at Rest, Hemoptysis Cardiac (ROS): Yes: Palpitations. No: Chest Pain, Edema, Irregular Heart Rate, Lightheadedness, Syncope, Chest Tightness ABD/GI: No: Abdominal Distended, Constipated, Diarrhea, Nausea, Poor Fluid Intake, Rectal Bleeding, Vomiting, Indigestion, Abdominal cramping : No: Burning, Dysuria, Discharge, Frequency, Flank Pain, Hematuria Musculoskeletal: No: Back Pain, Muscle Weakness Integumentary: No: Bruising, Erythema, Sweating Neurological: No: Headache, Numbness, Tingling, Tremors <Martha Thomas - Last Filed: 10/08/18 13:13> *Physical Exam - Vital Signs Last Vital Signs Temp Pulse Resp BP Pulse Ox 98.3 F 67 19 117/69 99 10/08/18 07:00 10/08/18 07:00 10/08/18 07:00 10/08/18 07:00 10/08/18 07:39 - Physical Exam General Appearance: Yes: Other (Awake, alert, oriented x3, in no acute distress ) HEENT: positive: EOMI, MARTI, Normal ENT Inspection, Normal Voice, Pharynx Normal. negative: Tonsillar Exudate, Tonsillar Erythema, Rhinorrhea, Sinus Tenderness Neck: positive: Supple. negative: Decreased range of motion, Lymphadenopathy (R ), Lymphadenopathy (L) Respiratory/Chest: positive: Normal Breath Sounds, Wheezing (inspiratory bilaterally ). negative: Lungs Clear, Respiratory Distress, Accessory Muscle Use, Labored Respiration, Crackles, Rales, Rhonchi Cardiovascular: positive: Regular Rhythm, Regular Rate, S1, S2. negative: Edema , JVD Musculoskeletal: positive: Normal Inspection. negative: CVA Tenderness, CVA Tenderness (R), CVA Tenderness (L), Decreased Range of Motion Extremity: positive: Pedal Edema (bilateral LE ). negative: Calf Tenderness, Erythema Integumentary: positive: Normal Color, Dry, Warm. 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 NML intact, Fully Oriented, Alert, Normal Mood/ Affect, Normal Response, Motor Strength 5/5 <Martha Thomas - Last Filed: 10/08/18 13:13> - Vital Signs Last Vital Signs Temp Pulse Resp BP Pulse Ox 98.3 F 97 H 20 153/83 99 10/08/18 07:00 10/08/18 11:14 10/08/18 11:14 10/08/18 11:14 10/08/18 07:39 <Yasmin Alvarado - Last Filed: 10/08/18 16:20> Moderate Sedation - Procedure Monitoring Vital Signs: Procedure Monitoring Vital Signs Temperature 98.3 F 10/08/18 07:00 Pulse Rate 67 10/08/18 07:00 Respiratory Rate 19 10/08/18 07:00 Blood Pressure 117/69 10/08/18 07:00 O2 Sat by Pulse Oximetry (%) 99 10/08/18 07:39 <Martha Thomas - Last Filed: 10/08/18 13:13> - Procedure Monitoring Vital Signs: Procedure Monitoring Vital Signs Temperature 98.3 F 10/08/18 07:00 Pulse Rate 97 H 10/08/18 11:14 Respiratory Rate 20 10/08/18 11:14 Blood Pressure 153/83 10/08/18 11:14 O2 Sat by Pulse Oximetry (%) 99 10/08/18 07:39 <Yasmin Alvarado - Last Filed: 10/08/18 16:20> ED Treatment Course - LABORATORY CBC & Chemistry Diagram: 10/08/18 08:06 10/08/18 08:06 - RADIOLOGY Radiology Studies Ordered: Category Date Time Status CHEST PA & LAT [RAD] Stat Radiology 10/08/18 07:31 Ordered <Martha Thomas - Last Filed: 10/08/18 13:13> - LABORATORY CBC & Chemistry Diagram: 10/08/18 08:06 10/08/18 08:06 - ADDITIONAL ORDERS Additional order review: Laboratory Results 10/08/18 10/08/18 10/08/18 10:50 08:06 08:06 Sodium Potassium Chloride Carbon Dioxide Anion Gap BUN Creatinine Creat Clearance w eGFR Random Glucose Calcium Total Bilirubin AST ALT Alkaline Phosphatase Creatine Kinase 100 111 Cancelled Troponin I 0.07 H 0.06 H Cancelled Total Protein Albumin TSH 1.63 10/08/18 08:06 Sodium 139 Potassium 3.8 Chloride 102 Carbon Dioxide 32 Anion Gap 4 L BUN 16 Creatinine 1.0 Creat Clearance w eGFR 54.66 Random Glucose 112 H Calcium 8.9 Total Bilirubin 0.4 AST 10 L ALT 17 Alkaline Phosphatase 82 Creatine Kinase Troponin I Total Protein 7.1 Albumin 3.3 L TSH 10/08/18 08:06 RBC 4.35 MCV 90.9 MCHC 34.3 RDW 14.9 MPV 8.2 Neutrophils % 57.8 Lymphocytes % 22.4 Monocytes % 10.4 H Eosinophils % 8.5 H Basophils % 0.9 - Medications Given in the ED: ED Medications Discontinued Medications Generic Name Dose Route Start Last Admin Trade Name Freq PRN Reason Stop Dose Admin Albuterol Sulfate 1 amp 10/08/18 07:33 10/08/18 07:47 Ventolin 0.083% Nebulizer Soln - NEB 10/08/18 07:34 1 amp ONCE ONE Administration Amiodarone HCl 100 mg 10/08/18 09:27 10/08/18 09:30 Cordarone - PO 10/08/18 09:28 100 mg ONCE ONE Administration <Yasmin Alvarado - Last Filed: 10/08/18 16:20> Medical Decision Making - Medical Decision Making 10/08/18 08:10 Patient is a 73 year old female with a significant PMHx of Atrial Fibrillation ( on eliquis and amio) and asthma who presents here today for complaints of palpitations and productive cough with phlegm. DDx includes but not limited to ACS, Arrythmia, electrolyte disturbances, Pneumonia, Influenza. -CBC, CMP, Cardiac profile, TSH -EKG, CXR -Influenza swab -One amp of nebulizer 10/08/18 09:02 -Patient labs revealed -Chest X-Ray negative for any acute pathology -Patient resting comfortably and saturating 99% on Room air. -No expiratory or inspiratory wheezing on lung examination when reassessed after 1 amp of albuterol. 10/08/18 09:16 -Will repeat troponins in 6 hrs and continue to monitor -Patient still complains of dizziness 10/08/18 09:27 -Patient now in Atrial Fibrillation at 120's BPM. -Home dose Amiodarone 100mg PO ordered 10/08/18 11:54 -Second trop 0.07 -Cardiac monitoring now reveals sinus pauses. Will call cardiology 10/08/18 12:29 -Spoke to Dr. Guajardo who will come evaluate patient. States patient needs to be admitted to telemetry for monitoring with possible pacemaker placement. Will need to hold eliquis -Will call Dr. Henry for admission 10/08/18 13:11 -Spoke to Dr. Henry who accepted patient for inpatient Tele <Martha Thomas - Last Filed: 10/08/18 13:13> *DC/Admit/Observation/Transfer - Discharge Dispostion Decision to Admit order: Yes <Martha Thomas - Last Filed: 10/08/18 13:13> <Yasmin Alvarado - Last Filed: 10/08/18 16:20> Diagnosis at time of Disposition: Arrhythmia Qualifiers: Arrhythmia type: other cardiac arrhythmia Qualified Code(s): I49.8 - Other specified cardiac arrhythmias
[2018-10-08 08:18] LABS: BASO % 0.9 % (0-2.0); EOS % 8.5 % (0-4.5); HEMATOCRIT 39.5 % (32.4-45.2); HEMOGLOBIN 13.6 GM/dL (10.7-15.3); LYMPH % 22.4 % (8-40); MCH 31.2 pg (25.7-33.7); MCHC 34.3 g/dl (32.0-36.0); MEAN CELL VOLUME 90.9 fl (80-96); MEAN PLT VOLUME 8.2 fl (7.5-11.1); MONO % 10.4 % (3.8-10.2); NEUT % 57.8 % (42.8-82.8); PLATELET COUNT 263 K/MM3 (134-434); RBC 4.35 M/mm3 (3.60-5.2); RDW 14.9 % (11.6-15.6); WHITE BLOOD COUNT 8.2 K/mm3 (4.0-10.0)
[2018-10-08 08:39] LABS: ALBUMIN 3.3 g/dl (3.4-5.0); ALK PHOS 82 U/L (45-117); ANION GAP 4 MMOL/L (8-16); BILIRUBIN,TOTAL 0.4 mg/dL (0.2-1); BLOOD UREA NITROGEN 16 mg/dL (7-18); CALCIUM 8.9 mg/dL (8.5-10.1); CHLORIDE 102 mmol/L (98-107); CO2 32 mmol/L (21-32); GLUCOSE,RANDOM 112 mg/dL (74-106); POTASSIUM 3.8 mmol/L (3.5-5.1); SGOT/AST 10 U/L (15-37); SGPT/ALT 17 U/L (13-61); SODIUM 139 mmol/L (136-145); TOT PROT 7.1 g/dl (6.4-8.2)
[2018-10-08] MEDS ORDERED: AMIODARONE HCL 200 MG TABLET (FP) PO ONE (09:27)
[2018-10-08] MEDS ORDERED: AMIODARONE HCL 200 MG TABLET (FP) ONE (09:29)
--- NOTE | 2018-10-08 15:52 | CON.CARD ---
Consult Consult Specialty:: Cardiology Referred by:: ER Reason for Consultation:: PAF, pause - History of Present Illness Chief Complaint: dizziness History of Present Illness: 73 year old woman with a PMHx of paroxymal atrial fibrillation on Xarelto and Amiodarone, diastolic CHF, HTN, HLD, DM, BRIE/DCCV 2005, COPD, asthma, CVA 2006 no residua, statin induced muscle pain, atypical chest pain with normal Echo and nuclear stress test 2017 admitted with palpitations. Found in afib with RVR had 4.6 second pause on telemetry in the ER. No chest pain, orthopnea, pnd or edema. Exercise tolerance is good. Echo 06/13/17 normal EF Nuclear stress test 10/12/16 normal perfusion. - History Source History Provided By: Patient, Medical Record - Past Medical History Cardio/Vascular: Yes: AFIB, HTN, Hyperlipdemia Pulmonary: Yes: Asthma Endocrine: Yes: Diabetes Mellitus - Past Surgical History Past Surgical History: Yes: Hysterectomy - Alcohol/Substance Use Hx Alcohol Use: No - Smoking History Smoking history: Never smoked Have you smoked in the past 12 months: No Aproximately how many cigarettes per day: 0 If you are a former smoker, when did you quit?: Over 45 years ago - Social History Usual Living Arrangement: With Child ADL: Independent Home Medications - Allergies Allergies/Adverse Reactions: Allergies Allergy/AdvReac Type Severity Reaction Status Date / Time shellfish derived Allergy Severe Swelling Verified 09/20/18 14:44 lactose Allergy Mild Verified 09/20/18 14:44 - Home Medications Home Medications: Ambulatory Orders Aspirin [ASA -] 81 mg PO DAILY 05/16/12 Montelukast Na [Singulair -] 10 mg PO HS 05/16/12 Amiodarone HCl [Cordarone -] 100 mg PO DAILY #1 11/22/12 Glimepiride [Amaryl -] 4 mg PO DAILY 09/27/13 Multivitamin [Multivitamins] 1 each PO DAILY 12/13/13 Levalbuterol HCl [Xopenex] 0.31 mg IH PRN PRN #0 vial.neb. 12/16/13 Bimatoprost [Lumigan] 1 drop OS HS 09/20/16 Garlic [Odorless Garlic] 1,000 mg PO DAILY 09/20/16 Losartan/Hydrochlorothiazide [Losartan-Hctz 100-25 mg Tab] 1 each PO DAILY 09/20 Esomeprazole Magnesium [Nexium 24Hr] 1 cap PO DAILY 06/12/18 Apixaban [Eliquis -] 5 mg PO BID #20 tablet 06/13/18 Family Disease History - Family Disease History Family Disease History: Heart Disease: Father (CHF), Mother (CHF) Vital Signs: Vital Signs Temperature 98.3 F 10/08/18 07:00 Pulse Rate 97 H 10/08/18 11:14 Respiratory Rate 20 10/08/18 11:14 Blood Pressure 153/83 10/08/18 11:14 O2 Sat by Pulse Oximetry (%) 99 10/08/18 07:39 Constitutional: Yes: No Distress, Calm Eyes: Yes: Conjunctiva Clear, EOM Intact HENT: Yes: Atraumatic, Normocephalic Neck: Yes: Trachea Midline Respiratory: Yes: CTA Bilaterally Gastrointestinal: Yes: Normal Bowel Sounds, Soft Cardiovascular: Yes: Regular Rate and Rhythm, Pulse Irregular JVD: No Carotid Bruit: No PMI: Non-Displaced Heart Sounds: Yes: S1, S2 Murmur: Yes: Systolic Murmur Musculoskeletal: Yes: WNL Extremities: Yes: WNL Edema: No Peripheral Pulses WNL: Yes - Other Data Labs, Other Data: CBC, BMP 10/08/18 08:06 10/08/18 08:06 Troponin, BNP 10/08/18 10/08/18 10/08/18 08:06 08:06 10:50 Troponin I Cancelled 0.06 H 0.07 H Troponin, BNP 10/08/18 10/08/18 10/08/18 08:06 08:06 10:50 Troponin I Cancelled 0.06 H 0.07 H Imaging - Results EKG: Report Reviewed (afib nssttw changes) Assessment/Plan 73 year old woman with a PMHx of paroxymal atrial fibrillation on Xarelto and Amiodarone, diastolic CHF, HTN, HLD, DM, BRIE/DCCV 2005, COPD, asthma, CVA 2006 no residua, statin induced muscle pain, atypical chest pain with normal Echo and nuclear stress test 2017 admitted with palpitations. Found in afib with RVR had 4.6 second pause on telemetry in the ER. --hold eliquis for now --NPO post MIDNIGHT TONIGHT --FOR PPM TOMORROW 10:30 AM --continue amiodarone for now. Dr Mills to place pacemaker. Discussed with him. Increase amiodarone to 200 mg daily post PPM.
--- NOTE | 2018-10-08 16:11 | SPA.PREOP ---
- PRE-OP NOTE Dx: paroxysmal afib with RVR/ long pause Planned Procedure: pace maker insertion Surgeon: Dr. mills Last Vital Signs Temp Pulse Resp BP Pulse Ox 98.3 F 97 H 20 153/83 99 10/08/18 07:00 10/08/18 11:14 10/08/18 11:14 10/08/18 11:14 10/08/18 07:39 Lab Results WBC 8.2 K/mm3 (4.0-10.0) 10/08/18 08:06 RBC 4.35 M/mm3 (3.60-5.2) 10/08/18 08:06 Hgb 13.6 GM/dL (10.7-15.3) 10/08/18 08:06 Hct 39.5 % (32.4-45.2) 10/08/18 08:06 MCV 90.9 fl (80-96) 10/08/18 08:06 MCHC 34.3 g/dl (32.0-36.0) 10/08/18 08:06 RDW 14.9 % (11.6-15.6) 10/08/18 08:06 Plt Count 263 K/MM3 (134-434) 10/08/18 08:06 Sodium 139 mmol/L (136-145) 10/08/18 08:06 Potassium 3.8 mmol/L (3.5-5.1) 10/08/18 08:06 Chloride 102 mmol/L (98-107) 10/08/18 08:06 Carbon Dioxide 32 mmol/L (21-32) 10/08/18 08:06 Anion Gap 4 MMOL/L (8-16) L 10/08/18 08:06 BUN 16 mg/dL (7-18) 10/08/18 08:06 Creatinine 1.0 mg/dL (0.55-1.3) 10/08/18 08:06 Random Glucose 112 mg/dL (74-106) H 10/08/18 08:06 Calcium 8.9 mg/dL (8.5-10.1) 10/08/18 08:06 INR/T&S to be collected - IMAGING X-ray: Report Reviewed (no evidence of infiltrates/effusion b/l) - ASSESSMENT/PLAN 1. Make NPO after midnight except po meds 2. GI/DVT PPX 3. Medical optimization / clearance 4. Consent to be obtained by surgeon after risks, benefits and alternatives discussed with patient and or Health Care Proxy. 5. Inr/T&s to be drawn D/w Dr. Mills
[2018-10-08] MEDS ORDERED: ACETAMINOPHEN 1000 MG/100 ML VIAL (NON FORMULARY) IVPB ONE (16:31)
--- NOTE | 2018-10-08 16:32 | HP ---
Admitting History and Physical - Primary Care Physician PCP: Yordy Henry - Admission History of Present Illness: 73 year old woman with a PMHx of paroxymal atrial fibrillation on Xarelto and Amiodarone, diastolic CHF, HTN, HLD, DM, BRIE/DCCV 2005, COPD, asthma, CVA 2006 no residua, statin induced muscle pain, atypical chest pain with normal Echo and nuclear stress test 2017 admitted with palpitations. Found in afib with RVR had 4.6 second pause on telemetry in the ER. No chest pain, orthopnea, pnd or edema. Exercise tolerance is good. Echo 06/13/17 normal EF Nuclear stress test 10/12/16 normal perfusion. - Past Medical History Cardiovascular: Yes: AFIB, HTN, Hyperlipdemia Pulmonary: Yes: Asthma Endocrine: Yes: Diabetes Mellitus - Past Surgical History Past Surgical History: Yes: Hysterectomy - Smoking History Smoking history: Never smoked Have you smoked in the past 12 months: No Aproximately how many cigarettes per day: 0 If you are a former smoker, when did you quit?: Over 45 years ago - Alcohol/Substance Use Hx Alcohol Use: No - Social History ADL: Independent Home Medications - Allergies Allergies/Adverse Reactions: Allergies Allergy/AdvReac Type Severity Reaction Status Date / Time shellfish derived Allergy Severe Swelling Verified 10/09/18 01:18 lactose Allergy Mild Verified 10/09/18 01:18 - Home Medications Home Medications: Ambulatory Orders Aspirin [ASA -] 81 mg PO DAILY 05/16/12 Montelukast Na [Singulair -] 10 mg PO HS 05/16/12 Amiodarone HCl [Cordarone -] 100 mg PO DAILY #1 11/22/12 Glimepiride [Amaryl -] 4 mg PO DAILY 09/27/13 Multivitamin [Multivitamins] 1 each PO DAILY 12/13/13 Levalbuterol HCl [Xopenex] 0.31 mg IH PRN PRN #0 vial.neb. 12/16/13 Bimatoprost [Lumigan] 1 drop OS HS 09/20/16 Garlic [Odorless Garlic] 1,000 mg PO DAILY 09/20/16 Losartan/Hydrochlorothiazide [Losartan-Hctz 100-25 mg Tab] 1 each PO DAILY 09/20 Esomeprazole Magnesium [Nexium 24Hr] 1 cap PO DAILY 06/12/18 Apixaban [Eliquis -] 5 mg PO BID #20 tablet 06/13/18 Family Disease History - Family Disease History Family Disease History: Heart Disease: Father (CHF), Mother (CHF) Physical Examination Vital Signs: Vital Signs Temperature 98.3 F 10/08/18 07:00 Pulse Rate 97 H 10/08/18 11:14 Respiratory Rate 20 10/08/18 11:14 Blood Pressure 153/83 10/08/18 11:14 O2 Sat by Pulse Oximetry (%) 99 10/08/18 07:39 Constitutional: Yes: No Distress HENT: Yes: Atraumatic Neck: Yes: Supple Cardiovascular: Yes: Pulse Irregular Respiratory: Yes: CTA Bilaterally Gastrointestinal: Yes: Normal Bowel Sounds Extremities: Yes: WNL Edema: No Peripheral Pulses WNL: Yes Neurological: Yes: Alert, Oriented Labs: CBC, BMP 10/08/18 08:06 10/08/18 08:06 Problem List - Problems (1) Arrhythmia Assessment/Plan: for pacemeker monitor on tele Code(s): I49.9 - CARDIAC ARRHYTHMIA, UNSPECIFIED Qualifiers: Arrhythmia type: other cardiac arrhythmia Qualified Code(s): I49.8 - Other specified cardiac arrhythmias (2) Cough Code(s): R05 - COUGH (3) Episodic lightheadedness Assessment/Plan: feeling better Code(s): R42 - DIZZINESS AND GIDDINESS (4) CKD (chronic kidney disease) stage 3, GFR 30-59 ml/min Code(s): N18.3 - CHRONIC KIDNEY DISEASE, STAGE 3 (MODERATE) (5) High blood pressure Assessment/Plan: on meds monitor bp Code(s): I10 - ESSENTIAL (PRIMARY) HYPERTENSION (6) Hyperlipidemia Code(s): E78.5 - HYPERLIPIDEMIA, UNSPECIFIED (7) Obesity (BMI 30-39.9) Code(s): E66.9 - OBESITY, UNSPECIFIED (8) Type 2 diabetes mellitus Code(s): E11.9 - TYPE 2 DIABETES MELLITUS WITHOUT COMPLICATIONS Assessment/Plan Laboratory Results - last 24 hr 10/08/18 10/08/18 10/08/18 07:32 08:06 08:06 WBC 8.2 RBC 4.35 Hgb 13.6 Hct 39.5 MCV 90.9 MCH 31.2 MCHC 34.3 RDW 14.9 Plt Count 263 MPV 8.2 Absolute Neuts (auto) 4.8 Neutrophils % 57.8 Lymphocytes % 22.4 Monocytes % 10.4 H Eosinophils % 8.5 H Basophils % 0.9 Nucleated RBC % 0 Sodium 139 Potassium 3.8 Chloride 102 Carbon Dioxide 32 Anion Gap 4 L BUN 16 Creatinine 1.0 Creat Clearance w eGFR 54.66 Random Glucose 112 H Calcium 8.9 Total Bilirubin 0.4 AST 10 L ALT 17 Alkaline Phosphatase 82 Creatine Kinase Troponin I Total Protein 7.1 Albumin 3.3 L TSH Influenza A (Rapid) Negative Influenza B (Rapid) Negative 10/08/18 10/08/18 10/08/18 08:06 08:06 10:50 WBC RBC Hgb Hct MCV MCH MCHC RDW Plt Count MPV Absolute Neuts (auto) Neutrophils % Lymphocytes % Monocytes % Eosinophils % Basophils % Nucleated RBC % Sodium Potassium Chloride Carbon Dioxide Anion Gap BUN Creatinine Creat Clearance w eGFR Random Glucose Calcium Total Bilirubin AST ALT Alkaline Phosphatase Creatine Kinase Cancelled 111 100 Troponin I Cancelled 0.06 H 0.07 H Total Protein Albumin TSH 1.63 Influenza A (Rapid) Influenza B (Rapid) Active Medications Generic Name Dose Route Start Last Admin Trade Name Freq PRN Reason Stop Dose Admin Acetaminophen 650 mg 10/09/18 13:48 Tylenol - PO Q6H PRN PAIN Lactated Ringer's 1,000 mls @ 75 mls/hr 10/09/18 13:45 10/09/18 17:56 Lactated Ringers Solution IV 75 mls/hr ASDIR TIFFANY Administration Oxycodone HCl 5 mg 10/09/18 13:36 Roxicodone - PO 10/10/18 13:35 Q4H PRN PAIN LEVEL 1-5
[2018-10-08] MEDS ORDERED: ACETAMINOPHEN INJECTION 100 ML IVPB ONE (16:51)
[2018-10-08 20:40] LABS: INR 1.36 (0.83-1.09); PROTHROMBIN TIME (PATIENT) 16.1 SEC (9.7-13.0)
[2018-10-09 07:23] LABS: BASO % 0.9 % (0-2.0); HEMATOCRIT 41.9 % (32.4-45.2); HEMOGLOBIN 13.3 GM/dL (10.7-15.3); LYMPH % 24.9 % (8-40); MCH 29.3 pg (25.7-33.7); MCHC 31.6 g/dl (32.0-36.0); MEAN CELL VOLUME 92.5 fl (80-96); MEAN PLT VOLUME 8.2 fl (7.5-11.1); MONO % 11.3 % (3.8-10.2); NEUT % 54.9 % (42.8-82.8); PLATELET COUNT 255 K/MM3 (134-434); RBC 4.54 M/mm3 (3.60-5.2); RDW 14.7 % (11.6-15.6); WHITE BLOOD COUNT 7.8 K/mm3 (4.0-10.0)
[2018-10-09 07:42] LABS: ALK PHOS 77 U/L (45-117); ANION GAP 4 MMOL/L (8-16); BILIRUBIN,TOTAL 0.5 mg/dL (0.2-1); BLOOD UREA NITROGEN 18 mg/dL (7-18); CALCIUM 8.7 mg/dL (8.5-10.1); CHLORIDE 104 mmol/L (98-107); CO2 32 mmol/L (21-32); GLUCOSE,RANDOM 87 mg/dL (74-106); POTASSIUM 3.5 mmol/L (3.5-5.1); SGOT/AST 8 U/L (15-37); SGPT/ALT 16 U/L (13-61); SODIUM 140 mmol/L (136-145); TOT PROT 6.7 g/dl (6.4-8.2)
[2018-10-09] MEDS ORDERED: ALBUTEROL SO4 0.083% IH SOL 2.5 MG/3 ML VIAL.NEB. NEB ONE (08:53)
--- NOTE | 2018-10-09 09:56 | PN ---
Progress Note, Physician Chief Complaint: feeling better this am tele nsr History of Present Illness: 73 year old woman with a PMHx of paroxymal atrial fibrillation on Xarelto and Amiodarone, diastolic CHF, HTN, HLD, DM, BRIE/DCCV 2006, COPD, asthma, CVA 2006 no residua, statin induced muscle pain, atypical chest pain with normal Echo and nuclear stress test 2017 admitted with palpitations. Found in afib with RVR had 4.6 second pause on telemetry in the ER. No chest pain, orthopnea, pnd or edema. Exercise tolerance is good. Echo 06/13/17 normal EF Nuclear stress test 10/12/16 normal perfusion. Awaiting PPM today. - Objective Vital Signs: Vital Signs Temperature 98.3 F 10/08/18 07:00 Pulse Rate 88 10/09/18 06:01 Respiratory Rate 18 10/09/18 06:01 Blood Pressure 138/80 10/09/18 06:01 O2 Sat by Pulse Oximetry (%) 99 10/09/18 06:01 Constitutional: Yes: No Distress, Calm Eyes: Yes: Conjunctiva Clear, EOM Intact HENT: Yes: Atraumatic, Normocephalic Neck: Yes: Supple, Trachea Midline Cardiovascular: Yes: Regular Rate and Rhythm Respiratory: Yes: CTA Bilaterally Musculoskeletal: Yes: WNL Extremities: Yes: WNL Edema: No Peripheral Pulses WNL: Yes Labs: CBC, BMP 10/09/18 07:00 10/09/18 07:00 INR, PTT INR 1.36 (0.83-1.09) H 10/08/18 19:55 Assessment/Plan 73 year old woman with a PMHx of paroxymal atrial fibrillation on Xarelto and Amiodarone, diastolic CHF, HTN, HLD, DM, BRIE/DCCV 2006, COPD, asthma, CVA 2006 no residua, statin induced muscle pain, atypical chest pain with normal Echo and nuclear stress test 2017 admitted with palpitations. Found in afib with RVR had 4.6 second pause on telemetry in the ER. --restart eliquis tomorrow --NPO post MIDNIGHT TONIGHT --FOR PPM today 10:30 AM --continue amiodarone for now. --There are no cardiac contraindications to Pacemaker placement. She is medically optimized and at low risk for the procedure. Dr Hakami to place pacemaker. Discussed with him. Increase amiodarone to 200 mg daily post PPM.
--- NOTE | 2018-10-09 10:03 | EKG ---
Test Reason : Blood Pressure : / mmHG Vent. Rate : 119 BPM Atrial Rate : 300 BPM P-R Int : 000 ms QRS Dur : 098 ms QT Int : 346 ms P-R-T Axes : 000 -26 054 degrees QTc Int : 486 ms ATRIAL FIBRILLATION WITH RAPID VENTRICULAR RESPONSE ABNORMAL ECG WHEN COMPARED WITH ECG OF 08-OCT-2018 06:37, ATRIAL FIBRILLATION HAS REPLACED SINUS RHYTHM VENT. RATE HAS INCREASED BY 57 BPM Confirmed by Todd Guajardo MD ([id number]) on 10/09/2018 10:02:54 AM Referred By: Confirmed By:Todd Guajardo MD
--- NOTE | 2018-10-09 10:04 | EKG ---
Test Reason : Blood Pressure : / mmHG Vent. Rate : 062 BPM Atrial Rate : 062 BPM P-R Int : 176 ms QRS Dur : 090 ms QT Int : 438 ms P-R-T Axes : 058 002 057 degrees QTc Int : 444 ms SINUS RHYTHM WITH PREMATURE SUPRAVENTRICULAR COMPLEXES OTHERWISE NORMAL ECG WHEN COMPARED WITH ECG OF 20-SEP-2018 08:42, SINUS RHYTHM HAS REPLACED ATRIAL FIBRILLATION Confirmed by Todd Guajardo MD ([id number]) on 10/09/2018 10:04:30 AM Referred By: Confirmed By:Todd Guajardo MD
[2018-10-09] MEDS ORDERED: MIDAZOLAM HCL 2 MG/2 ML SINGLE DOSE VIAL ONE ×4 (10:47→12:47)
[2018-10-09] MEDS ORDERED: ceFAZolin SODIUM 1 GM VIAL IVPB ONE (11:49)
[2018-10-09] MEDS ORDERED: PROPOFOL 20 ML ONE (11:55)
[2018-10-09] MEDS ORDERED: LIDOCAINE HCL 1%, 10 MG/ML (50 mL VIAL) IJ ONE ×2 (12:04)
[2018-10-09] MEDS ORDERED: BUPIVACAINE HCL/PF (5 MG/ML) 30 ML VIAL IJ ONE ×2 (12:04)
[2018-10-09] MEDS ORDERED: GENTAMICIN SO4 80 MG/2 ML VIAL ONE (13:03)
[2018-10-09] MEDS ORDERED: ONDANSETRON 4 MG/2 ML VIAL IVPUSH PRN (13:36)
[2018-10-09] MEDS ORDERED: PROMETHAZINE HCL 25 MG/1 ML VIAL IVPB PRN (13:36)
[2018-10-09] MEDS ORDERED: oxyCODONE HCL 5 MG TABLET PO PRN (13:36)
[2018-10-09] MEDS ORDERED: ACETAMINOPHEN 325 MG TABLET (FP) PO PRN (13:48)
--- NOTE | 2018-10-09 13:48 | OP ---
Operative Note - Note: Operative Date: 10/09/18 Pre-Operative Diagnosis: Sick sinus syndrom Operation: Implantation of Dual chamber Pacemaker Implants: Dual chamber pacemaker Surgeon: Suraj Mills Anesthesia: Local, MAC Estimated Blood Loss (mls): 5 Operative Report Dictated: Yes
[2018-10-09] MEDS: LACTATED RINGERS SOLUTION 1,000 ML IV SCH (17:56)
--- NOTE | 2018-10-09 18:02 | PN ---
Progress Note, Physician History of Present Illness: doing well - Current Medication List Current Medications: Active Medications Acetaminophen (Tylenol -) 650 mg PO Q6H PRN PRN Reason: PAIN Lactated Ringer's (Lactated Ringers Solution) 1,000 mls @ 75 mls/hr IV ASDIR [facility] Last Admin: 10/09/18 17:56 Dose: 75 mls/hr Oxycodone HCl (Roxicodone -) 5 mg PO Q4H PRN PRN Reason: PAIN LEVEL 1-5 Stop: 10/10/18 13:35 - Objective Vital Signs: Vital Signs Temperature 97.6 F 10/09/18 17:25 Pulse Rate 60 10/09/18 17:25 Respiratory Rate 15 10/09/18 17:25 Blood Pressure 125/60 10/09/18 17:25 O2 Sat by Pulse Oximetry (%) 94 L 10/09/18 17:25 Constitutional: Yes: No Distress HENT: Yes: Atraumatic Neck: Yes: Supple Cardiovascular: Yes: Regular Rate and Rhythm Respiratory: Yes: CTA Bilaterally Gastrointestinal: Yes: Normal Bowel Sounds Extremities: Yes: WNL Edema: No Peripheral Pulses WNL: Yes Neurological: Yes: Alert, Oriented Labs: CBC, BMP 10/09/18 07:00 10/09/18 07:00 INR, PTT INR 1.36 (0.83-1.09) H 10/08/18 19:55 Problem List - Problems (1) Arrhythmia Assessment/Plan: s/p pacemeker monitor on tele cardio fu Code(s): I49.9 - CARDIAC ARRHYTHMIA, UNSPECIFIED Qualifiers: Arrhythmia type: other cardiac arrhythmia Qualified Code(s): I49.8 - Other specified cardiac arrhythmias (2) Cough Code(s): R05 - COUGH (3) Episodic lightheadedness Assessment/Plan: feeling better Code(s): R42 - DIZZINESS AND GIDDINESS (4) CKD (chronic kidney disease) stage 3, GFR 30-59 ml/min Code(s): N18.3 - CHRONIC KIDNEY DISEASE, STAGE 3 (MODERATE) (5) High blood pressure Assessment/Plan: on meds monitor bp Code(s): I10 - ESSENTIAL (PRIMARY) HYPERTENSION (6) Hyperlipidemia Code(s): E78.5 - HYPERLIPIDEMIA, UNSPECIFIED (7) Obesity (BMI 30-39.9) Code(s): E66.9 - OBESITY, UNSPECIFIED (8) Type 2 diabetes mellitus Assessment/Plan: monitor bgms on po meds Code(s): E11.9 - TYPE 2 DIABETES MELLITUS WITHOUT COMPLICATIONS
[2018-10-09] MEDS: PANTOPRAZOLE 40 MG TABLET (FP) PO SCH (21:46)
[2018-10-09] MEDS: MONTELUKAST NA 10 MG TABLET PO SCH (21:47)
[2018-10-09] MEDS: LATANOPROST 0.005% OPHTH SOLN 2.5ML BOTTLE OS SCH (22:28)
[2018-10-10] MEDS: GLIMEPIRIDE 2 MG TABLET (FP) PO SCH (06:57)
[2018-10-10] MEDS: PANTOPRAZOLE 40 MG TABLET (FP) PO SCH (09:20)
--- NOTE | 2018-10-10 12:32 | PN ---
Progress Note (short form) - Note Progress Note: Anesthesia post op note, POD#1 S/P Permanent pacemaker placement for SSS. Under MAC. Pat seen and examined. VSS. No apparent post anesthesia complications.Signed Off.
--- NOTE | 2018-10-10 13:54 | PN ---
Progress Note, Physician Chief Complaint: feeling better this am tele nsr s/p Biotronik PPM yesterday. History of Present Illness: 73 year old woman with a PMHx of paroxymal atrial fibrillation on Xarelto and Amiodarone, diastolic CHF, HTN, HLD, DM, BRIE/DCCV 2005, COPD, asthma, CVA 2006 no residua, statin induced muscle pain, atypical chest pain with normal Echo and nuclear stress test 2017 admitted with palpitations. Found in afib with RVR had 4.6 second pause on telemetry in the ER. No chest pain, orthopnea, pnd or edema. Exercise tolerance is good. Echo 06/13/17 normal EF Nuclear stress test 10/12/16 normal perfusion. Underwent Biotronik PPM 10/09/18. tele now nsr. - Current Medication List Current Medications: Active Medications Acetaminophen (Tylenol -) 650 mg PO Q6H PRN PRN Reason: PAIN Last Admin: 10/10/18 05:55 Dose: 650 mg Glimepiride (Amaryl -) 4 mg PO DAILY@0700 [facility] Last Admin: 10/10/18 06:57 Dose: 4 mg Lactated Ringer's (Lactated Ringers Solution) 1,000 mls @ 75 mls/hr IV ASDIR [facility] Last Admin: 10/09/18 17:56 Dose: 75 mls/hr Latanoprost (Xalatan 0.005% Eye Drops -) 1 drop OS [facility] Last Admin: 10/09/18 22:28 Dose: 1 drop Montelukast Sodium (Singulair -) 10 mg PO [facility] Last Admin: 10/09/18 21:47 Dose: 10 mg Pantoprazole Sodium (Protonix -) 40 mg PO DAILY [facility] Last Admin: 10/10/18 09:20 Dose: 40 mg - Objective Vital Signs: Vital Signs Temperature 98.3 F 10/10/18 10:00 Pulse Rate 62 10/10/18 10:00 Respiratory Rate 20 10/10/18 10:00 Blood Pressure 130/68 10/10/18 10:00 O2 Sat by Pulse Oximetry (%) 100 10/10/18 10:00 Constitutional: Yes: No Distress, Calm Eyes: Yes: Conjunctiva Clear, EOM Intact HENT: Yes: Normocephalic Neck: Yes: Trachea Midline Cardiovascular: Yes: Regular Rate and Rhythm Respiratory: Yes: CTA Bilaterally Gastrointestinal: Yes: Normal Bowel Sounds, Soft Edema: Yes Peripheral Pulses WNL: No Labs: CBC, BMP 10/09/18 07:00 10/09/18 07:00 INR, PTT INR 1.36 (0.83-1.09) H 10/08/18 19:55 Assessment/Plan 73 year old woman with a PMHx of paroxymal atrial fibrillation on Xarelto and Amiodarone, diastolic CHF, HTN, HLD, DM, BRIE/DCCV 2005, COPD, asthma, CVA 2006 no residua, statin induced muscle pain, atypical chest pain with normal Echo and nuclear stress test 2017 admitted with palpitations. Found in afib with RVR had 4.6 second pause on telemetry in the ER. --restart eliquis today. --stable post PPM --continue amiodarone 200 mg daily for now. --stable to DC home and follow with Dr Mesa.
[2018-10-10] MEDS: LACTATED RINGERS SOLUTION 1,000 ML IV SCH (14:05)
--- NOTE | 2018-10-10 17:35 | PN ---
Progress Note, Physician History of Present Illness: doing well - Current Medication List Current Medications: Active Medications Acetaminophen (Tylenol -) 650 mg PO Q6H PRN PRN Reason: PAIN Last Admin: 10/10/18 05:55 Dose: 650 mg Apixaban (Eliquis -) 5 mg PO BID [facility] Aspirin (Ecotrin -) 81 mg PO DAILY [facility] Glimepiride (Amaryl -) 4 mg PO DAILY@0700 [facility] Last Admin: 10/10/18 06:57 Dose: 4 mg Hydrochlorothiazide (Hctz -) 25 mg PO DAILY [facility] Lactated Ringer's (Lactated Ringers Solution) 1,000 mls @ 75 mls/hr IV ASDIR [facility] Last Admin: 10/10/18 14:05 Dose: Not Given Latanoprost (Xalatan 0.005% Eye Drops -) 1 drop OS [facility] Last Admin: 10/09/18 22:28 Dose: 1 drop Losartan Potassium (Cozaar -) 100 mg PO DAILY [facility] Montelukast Sodium (Singulair -) 10 mg PO [facility] Last Admin: 10/09/18 21:47 Dose: 10 mg Pantoprazole Sodium (Protonix -) 40 mg PO DAILY [facility] Last Admin: 10/10/18 09:20 Dose: 40 mg - Objective Vital Signs: Vital Signs Temperature 98.2 F 10/10/18 14:05 Pulse Rate 74 10/10/18 14:05 Respiratory Rate 20 10/10/18 14:05 Blood Pressure 141/68 10/10/18 14:05 O2 Sat by Pulse Oximetry (%) 100 10/10/18 10:00 Constitutional: Yes: No Distress HENT: Yes: Atraumatic Neck: Yes: Supple Cardiovascular: Yes: Regular Rate and Rhythm Respiratory: Yes: CTA Bilaterally Gastrointestinal: Yes: Normal Bowel Sounds Extremities: Yes: WNL Edema: No Peripheral Pulses WNL: Yes Neurological: Yes: Alert, Oriented Labs: CBC, BMP 10/09/18 07:00 10/09/18 07:00 INR, PTT INR 1.36 (0.83-1.09) H 10/08/18 19:55 Problem List - Problems (1) Arrhythmia Assessment/Plan: s/p pacemeker monitor on tele can be dc per cardio Code(s): I49.9 - CARDIAC ARRHYTHMIA, UNSPECIFIED Qualifiers: Arrhythmia type: other cardiac arrhythmia Qualified Code(s): I49.8 - Other specified cardiac arrhythmias (2) Cough Code(s): R05 - COUGH (3) Episodic lightheadedness Assessment/Plan: feeling better Code(s): R42 - DIZZINESS AND GIDDINESS (4) CKD (chronic kidney disease) stage 3, GFR 30-59 ml/min Code(s): N18.3 - CHRONIC KIDNEY DISEASE, STAGE 3 (MODERATE) (5) High blood pressure Assessment/Plan: on meds monitor bp Code(s): I10 - ESSENTIAL (PRIMARY) HYPERTENSION (6) Hyperlipidemia Code(s): E78.5 - HYPERLIPIDEMIA, UNSPECIFIED (7) Obesity (BMI 30-39.9) Code(s): E66.9 - OBESITY, UNSPECIFIED (8) Type 2 diabetes mellitus Assessment/Plan: monitor bgms on po meds Code(s): E11.9 - TYPE 2 DIABETES MELLITUS WITHOUT COMPLICATIONS
--- NOTE | 2018-10-10 20:45 | OP ---
DATE OF OPERATION: SURGEON: Suraj Mills M.D. PROCEDURE PERFORMED: Insertion of dual-chamber pacemaker. PREOPERATIVE DIAGNOSIS: Sick sinus syndrome. Hypertension. Noninsulin dependent diabetes mellitus. Diabetes type 2. Hyperlipidemia, diastolic heart failure, paroxysmal atrial fibrillation, on amiodarone, and Eliquis, chronic lower extremity edema, asthma. POSTOPERATIVE DIAGNOSIS: Sick sinus syndrome. Hypertension. Noninsulin dependent diabetes mellitus. Diabetes type 2. Hyperlipidemia, diastolic heart failure, paroxysmal atrial fibrillation, on amiodarone, and Eliquis, chronic lower extremity edema, asthma. INDICATION: A 73-year-old female with past medical history of hypertension, type 2 diabetes, HLD, diastolic heart failure, paroxysmal atrial fibrillation, and chronic leg edema, was presented to and seen at emergency room because of palpitations. Cardiac monitoring showed 4.2-second pause. Cardiology was consulted, requested insertion of the dual chamber pacemaker. The patient and patient's daughter were informed about the indication about risks, benefits, and alternative treatments and consented for the surgery. PROCEDURE IN DETAIL: The patient was brought into the OR, was placed into a supine position. IV access of left upper extremity and one IV access at right upper extremity. Patient was marked on the left deltopectoral region, prepped and draped in sterile fashion. 20 mL of diluted contrast 50% given in left IV and venogram was performed. Hereafter Seldinger technique was performed to get access to axillary vein using micropuncture kit, easy access to axillary vein. After a guidewire micropuncture needle was changed into a regular guidewire. Incision was made. A pocket was created. A sheath was introduced into the axillary vein. The guidewires prior to this were introduced all the way past diaphragm. Two sheaths were introduced over the guidewire. The guidewire was removed. The first LV lead was introduced to LV and good capture here. After that right atrial lead was introduced, right atrial made good capture here. Hereafter the leads were fixed to the fascia using 0 silk, connected to battery and the battery was placed in a pocket created earlier. Prior to that hemostasis was secured. Gentamicin irrigation to the pocket. Fascia was closed using 2-0 Vicryl, subcutaneous tissue using 0 Vicryl, and skin with 3-0 Monocryl. The reading of the device is as follows. The right atrial has a threshold of 0.4 ms, P AMP of 5.3 mv, and impedance of 487 ohms. The RV lead has 0.5 V at 0.4 ms, amplitude of 8.8 mV, and impedance of 702 ohms. Patient tolerated the procedure well. I performed the procedure as dictated above and was in the OR during the entire procedure. Johnathan [id number] [facility]
[2018-10-10] MEDS: APIXABAN 5 MG TABLET PO SCH (21:39)
[2018-10-10] MEDS: MONTELUKAST NA 10 MG TABLET PO SCH (21:39)
[2018-10-10] MEDS: LATANOPROST 0.005% OPHTH SOLN 2.5ML BOTTLE OS SCH (21:40)
[2018-10-11] MEDS ORDERED: METOPROLOL TARTRATE 25 MG TABLET (FP) PO SCH ×2 (00:15→00:30)
--- NOTE | 2018-10-11 00:29 | RAPID ---
Physical Examination Vital Signs: Vital Signs Temperature 97.8 F 10/10/18 20:05 Pulse Rate 59 L 10/10/18 20:05 Respiratory Rate 18 10/10/18 20:05 Blood Pressure 115/65 10/10/18 20:05 O2 Sat by Pulse Oximetry (%) 100 10/10/18 10:00 Labs: CBC, BMP 10/09/18 07:00 10/09/18 07:00 Rapid Response - Rapid Response Assessment: rapid response called pt experiencing palpitation w/ tachycardia 140s while ambulating to bathroom. denies lightheadedness BP 129/87 HR 140-130s, 96% O2 sitting on bed breathing comfortably CTAB irregulary irregular S1 S2 EXT no edema EKG - A fib w/ RVR. no ST changes rpt BP 140s/[address] Loza, daniella to increase metoprolol to 25 BID PO as BP is stable and pt is s/p pacemaker which will allow for pacing in case of garret cardiac profile BMP Mg TSH 4:00 am reassessment HR 90-100s a-fib on monitor asymptomatic
[2018-10-11] MEDS: METOPROLOL TARTRATE 25 MG TABLET (FP) PO SCH ×3 (00:35→09:25)
[2018-10-11 02:39] LABS: ANION GAP 6 MMOL/L (8-16); BLOOD UREA NITROGEN 18 mg/dL (7-18); CHLORIDE 104 mmol/L (98-107); CO2 29 mmol/L (21-32); GLUCOSE,RANDOM 111 mg/dL (74-106); MAGNESIUM 2.1 mg/dL (1.8-2.4); POTASSIUM 3.7 mmol/L (3.5-5.1); SODIUM 139 mmol/L (136-145)
[2018-10-11] MEDS: GLIMEPIRIDE 2 MG TABLET (FP) PO SCH (06:33)
[2018-10-11] MEDS: APIXABAN 5 MG TABLET PO SCH ×3 (07:56→21:23)
[2018-10-11] MEDS: PANTOPRAZOLE 40 MG TABLET (FP) PO SCH ×2 (07:56→09:26)
[2018-10-11] MEDS: LOSARTAN POTASSIUM 50 MG TABLET (FP) PO SCH (09:25)
[2018-10-11] MEDS: AMIODARONE HCL 200 MG TABLET (FP) PO SCH (09:25)
[2018-10-11] MEDS: ASPIRIN COATED 81 MG TABLET.EC PO SCH (09:25)
[2018-10-11] MEDS: HYDROCHLOROTHIAZIDE 25 MG TABLET (FP) PO SCH (09:25)
[2018-10-11] MEDS ORDERED: LEVALBUTEROL HCL 0.31 MG/3 ML VIAL.NEB IH PRN (11:13)
--- NOTE | 2018-10-11 11:19 | PN ---
Progress Note, Physician Chief Complaint: feeling better this am tele nsr now, had one episode of af rvr last night. History of Present Illness: 73 year old woman with a PMHx of paroxymal atrial fibrillation on Xarelto and Amiodarone, diastolic CHF, HTN, HLD, DM, BRIE/DCCV 2005, COPD, asthma, CVA 2006 no residua, statin induced muscle pain, atypical chest pain with normal Echo and nuclear stress test 2017 admitted with palpitations. Found in afib with RVR had 4.6 second pause on telemetry in the ER. No chest pain, orthopnea, pnd or edema. Exercise tolerance is good. Echo 06/13/17 normal EF Nuclear stress test 10/12/16 normal perfusion. Underwent Biotronik PPM 10/09/18. tele now nsr. Had PAF with rvr last night. metoprolol added. - Current Medication List Current Medications: Active Medications Acetaminophen (Tylenol -) 650 mg PO Q6H PRN PRN Reason: PAIN Last Admin: 10/10/18 05:55 Dose: 650 mg Amiodarone HCl (Cordarone -) 200 mg PO DAILY [facility] Last Admin: 10/11/18 09:25 Dose: 200 mg Apixaban (Eliquis -) 5 mg PO BID [facility] Last Admin: 10/11/18 09:25 Dose: Not Given Aspirin (Ecotrin -) 81 mg PO DAILY [facility] Last Admin: 10/11/18 09:25 Dose: 81 mg Glimepiride (Amaryl -) 4 mg PO DAILY@0700 [facility] Last Admin: 10/11/18 06:33 Dose: 4 mg Hydrochlorothiazide (Hctz -) 25 mg PO DAILY [facility] Last Admin: 10/11/18 09:25 Dose: 25 mg Lactated Ringer's (Lactated Ringers Solution) 1,000 mls @ 75 mls/hr IV ASDIR [facility] Last Admin: 10/10/18 14:05 Dose: Not Given Latanoprost (Xalatan 0.005% Eye Drops -) 1 drop OS HS [facility] Last Admin: 10/10/18 21:40 Dose: 1 drop Levalbuterol HCl (Xopenex) 0.31 mg IH Q6H PRN PRN Reason: SHORTNESS OF BREATH Losartan Potassium (Cozaar -) 100 mg PO DAILY [facility] Last Admin: 10/11/18 09:25 Dose: 100 mg Metoprolol Tartrate (Lopressor -) 25 mg PO BID [facility] Last Admin: 10/11/18 09:25 Dose: Not Given Montelukast Sodium (Singulair -) 10 mg PO HS [facility] Last Admin: 10/10/18 21:39 Dose: 10 mg Pantoprazole Sodium (Protonix -) 40 mg PO DAILY [facility] Last Admin: 10/11/18 09:26 Dose: Not Given - Objective Vital Signs: Vital Signs Temperature 98.6 F 10/11/18 06:00 Pulse Rate 98 H 10/11/18 06:00 Respiratory Rate 20 10/11/18 06:00 Blood Pressure 145/88 10/11/18 06:00 O2 Sat by Pulse Oximetry (%) 95 10/10/18 21:00 Constitutional: Yes: No Distress, Calm Eyes: Yes: Conjunctiva Clear, EOM Intact HENT: Yes: Normocephalic Neck: Yes: Trachea Midline Cardiovascular: Yes: Regular Rate and Rhythm Respiratory: Yes: CTA Bilaterally, Other (wound c/d/i) Gastrointestinal: Yes: Normal Bowel Sounds, Soft Extremities: Yes: WNL Edema: No Labs: CBC, BMP 10/09/18 07:00 10/11/18 00:35 INR, PTT INR 1.36 (0.83-1.09) H 10/08/18 19:55 Assessment/Plan 73 year old woman with a PMHx of paroxymal atrial fibrillation on Xarelto and Amiodarone, diastolic CHF, HTN, HLD, DM, BRIE/DCCV 2005, COPD, asthma, CVA 2006 no residua, statin induced muscle pain, atypical chest pain with normal Echo and nuclear stress test 2017 admitted with palpitations. Found in afib with RVR had 4.6 second pause on telemetry in the ER. --restarted eliquis --stable post PPM --continue amiodarone 200 mg daily for now. --added toprol xl 50 mg daily.;
[2018-10-11 13:26] VITALS: BMI 39.5
[2018-10-11] MEDS: LACTATED RINGERS SOLUTION 1,000 ML IV SCH (13:56)
--- NOTE | 2018-10-11 16:21 | PN ---
Progress Note, Physician History of Present Illness: events noted doing well now - Current Medication List Current Medications: Active Medications Acetaminophen (Tylenol -) 650 mg PO Q6H PRN PRN Reason: PAIN Last Admin: 10/10/18 05:55 Dose: 650 mg Amiodarone HCl (Cordarone -) 200 mg PO DAILY [facility] Last Admin: 10/11/18 09:25 Dose: 200 mg Apixaban (Eliquis -) 5 mg PO BID [facility] Last Admin: 10/11/18 09:25 Dose: Not Given Aspirin (Ecotrin -) 81 mg PO DAILY [facility] Last Admin: 10/11/18 09:25 Dose: 81 mg Glimepiride (Amaryl -) 4 mg PO DAILY@0700 [facility] Last Admin: 10/11/18 06:33 Dose: 4 mg Hydrochlorothiazide (Hctz -) 25 mg PO DAILY [facility] Last Admin: 10/11/18 09:25 Dose: 25 mg Lactated Ringer's (Lactated Ringers Solution) 1,000 mls @ 75 mls/hr IV ASDIR [facility] Last Admin: 10/10/18 14:05 Dose: Not Given Latanoprost (Xalatan 0.005% Eye Drops -) 1 drop OS [facility] Last Admin: 10/10/18 21:40 Dose: 1 drop Levalbuterol HCl (Xopenex) 0.31 mg IH Q6H PRN PRN Reason: SHORTNESS OF BREATH Losartan Potassium (Cozaar -) 100 mg PO DAILY [facility] Last Admin: 10/11/18 09:25 Dose: 100 mg Montelukast Sodium (Singulair -) 10 mg PO HS [facility] Last Admin: 10/10/18 21:39 Dose: 10 mg Pantoprazole Sodium (Protonix -) 40 mg PO DAILY [facility] Last Admin: 10/11/18 09:26 Dose: Not Given - Objective Vital Signs: Vital Signs Temperature 97.9 F 10/11/18 15:10 Pulse Rate 82 10/11/18 15:10 Respiratory Rate 20 10/11/18 15:10 Blood Pressure 114/52 L 10/11/18 15:10 O2 Sat by Pulse Oximetry (%) 96 10/11/18 10:00 Constitutional: Yes: No Distress HENT: Yes: Atraumatic Neck: Yes: Supple Cardiovascular: Yes: Regular Rate and Rhythm Respiratory: Yes: CTA Bilaterally Gastrointestinal: Yes: Normal Bowel Sounds Extremities: Yes: WNL Edema: No Peripheral Pulses WNL: Yes Neurological: Yes: Alert, Oriented Labs: CBC, BMP 10/09/18 07:00 10/11/18 00:35 INR, PTT INR 1.36 (0.83-1.09) H 10/08/18 19:55 Problem List - Problems (1) Arrhythmia Assessment/Plan: s/p pacemeker monitor on tele on meds per cardiology Code(s): I49.9 - CARDIAC ARRHYTHMIA, UNSPECIFIED Qualifiers: Arrhythmia type: other cardiac arrhythmia Qualified Code(s): I49.8 - Other specified cardiac arrhythmias (2) Cough Code(s): R05 - COUGH (3) Episodic lightheadedness Assessment/Plan: feeling better Code(s): R42 - DIZZINESS AND GIDDINESS (4) CKD (chronic kidney disease) stage 3, GFR 30-59 ml/min Code(s): N18.3 - CHRONIC KIDNEY DISEASE, STAGE 3 (MODERATE) (5) High blood pressure Assessment/Plan: on meds monitor bp Code(s): I10 - ESSENTIAL (PRIMARY) HYPERTENSION (6) Hyperlipidemia Code(s): E78.5 - HYPERLIPIDEMIA, UNSPECIFIED (7) Obesity (BMI 30-39.9) Code(s): E66.9 - OBESITY, UNSPECIFIED (8) Type 2 diabetes mellitus Assessment/Plan: monitor bgms on po meds Code(s): E11.9 - TYPE 2 DIABETES MELLITUS WITHOUT COMPLICATIONS
[2018-10-11] MEDS: MONTELUKAST NA 10 MG TABLET PO SCH (21:23)
[2018-10-11] MEDS: LATANOPROST 0.005% OPHTH SOLN 2.5ML BOTTLE OS SCH (21:23)
[2018-10-12] MEDS: GLIMEPIRIDE 2 MG TABLET (FP) PO SCH (06:32)
[2018-10-12] MEDS: LOSARTAN POTASSIUM 50 MG TABLET (FP) PO SCH (09:47)
[2018-10-12] MEDS: HYDROCHLOROTHIAZIDE 25 MG TABLET (FP) PO SCH (09:48)
[2018-10-12] MEDS: ASPIRIN COATED 81 MG TABLET.EC PO SCH (09:48)
[2018-10-12] MEDS: AMIODARONE HCL 200 MG TABLET (FP) PO SCH (09:48)
[2018-10-12] MEDS: PANTOPRAZOLE 40 MG TABLET (FP) PO SCH (09:48)
[2018-10-12] MEDS: APIXABAN 5 MG TABLET PO SCH (09:48)
--- NOTE | 2018-10-12 14:17 | PN ---
Progress Note, Physician Chief Complaint: feeling better tele nsr now. History of Present Illness: 73 year old woman with a PMHx of paroxymal atrial fibrillation on Xarelto and Amiodarone, diastolic CHF, HTN, HLD, DM, BRIE/DCCV 2005, COPD, asthma, CVA 2006 no residua, statin induced muscle pain, atypical chest pain with normal Echo and nuclear stress test 2017 admitted with palpitations. Found in afib with RVR had 4.6 second pause on telemetry in the ER. No chest pain, orthopnea, pnd or edema. Exercise tolerance is good. Echo 06/13/17 normal EF Nuclear stress test 10/12/16 normal perfusion. Underwent Biotronik PPM 10/09/18. tele now nsr. Had PAF with rvr last night. metoprolol added. - Current Medication List Current Medications: Active Medications Acetaminophen (Tylenol -) 650 mg PO Q6H PRN PRN Reason: PAIN Last Admin: 10/10/18 05:55 Dose: 650 mg Amiodarone HCl (Cordarone -) 200 mg PO DAILY [facility] Last Admin: 10/12/18 09:48 Dose: 200 mg Apixaban (Eliquis -) 5 mg PO BID [facility] Last Admin: 10/12/18 09:48 Dose: 5 mg Aspirin (Ecotrin -) 81 mg PO DAILY [facility] Last Admin: 10/12/18 09:48 Dose: 81 mg Glimepiride (Amaryl -) 4 mg PO DAILY@0700 [facility] Last Admin: 10/12/18 06:32 Dose: 4 mg Hydrochlorothiazide (Hctz -) 25 mg PO DAILY [facility] Last Admin: 10/12/18 09:48 Dose: 25 mg Lactated Ringer's (Lactated Ringers Solution) 1,000 mls @ 75 mls/hr IV ASDIR [facility] Last Admin: 10/10/18 14:05 Dose: Not Given Latanoprost (Xalatan 0.005% Eye Drops -) 1 drop OS HS [facility] Last Admin: 10/11/18 21:23 Dose: 1 drop Levalbuterol HCl (Xopenex) 0.31 mg IH Q6H PRN PRN Reason: SHORTNESS OF BREATH Last Admin: 10/12/18 11:51 Dose: 0.31 mg Losartan Potassium (Cozaar -) 100 mg PO DAILY [facility] Last Admin: 10/12/18 09:47 Dose: 100 mg Metoprolol Succinate (Toprol Xl -) 50 mg PO DAILY [facility] Montelukast Sodium (Singulair -) 10 mg PO HS [facility] Last Admin: 10/11/18 21:23 Dose: 10 mg Pantoprazole Sodium (Protonix -) 40 mg PO DAILY [facility] Last Admin: 10/12/18 09:48 Dose: 40 mg - Objective Vital Signs: Vital Signs Temperature 98.1 F 10/12/18 05:38 Pulse Rate 60 10/12/18 05:38 Respiratory Rate 20 10/12/18 05:38 Blood Pressure 131/67 10/12/18 05:38 O2 Sat by Pulse Oximetry (%) 95 10/11/18 21:00 Constitutional: Yes: No Distress, Calm Eyes: Yes: Conjunctiva Clear, EOM Intact HENT: Yes: Atraumatic, Normocephalic Neck: Yes: Supple, Trachea Midline Cardiovascular: Yes: Regular Rate and Rhythm Respiratory: Yes: CTA Bilaterally, Other (wound c/d/i) Gastrointestinal: Yes: Normal Bowel Sounds Musculoskeletal: Yes: WNL Extremities: Yes: WNL Edema: Yes Labs: CBC, BMP 10/09/18 07:00 10/11/18 00:35 INR, PTT INR 1.36 (0.83-1.09) H 10/08/18 19:55 Assessment/Plan 73 year old woman with a PMHx of paroxymal atrial fibrillation on Xarelto and Amiodarone, diastolic CHF, HTN, HLD, DM, BRIE/DCCV 2005, COPD, asthma, CVA 2006 no residua, statin induced muscle pain, atypical chest pain with normal Echo and nuclear stress test 2017 admitted with palpitations. Found in afib with RVR had 4.6 second pause on telemetry in the ER. --restarted eliquis --stable post PPM --continue amiodarone 200 mg daily for now. --added toprol xl 50 mg daily.; --dc home follow with Dr mace 1-2 weeks.
[2018-10-12] MEDS: LACTATED RINGERS SOLUTION 1,000 ML IV SCH (14:52)
--- NOTE | 2018-10-12 17:23 | PN ---
Progress Note, Physician - Current Medication List Current Medications: Active Medications Acetaminophen (Tylenol -) 650 mg PO Q6H PRN PRN Reason: PAIN Last Admin: 10/10/18 05:55 Dose: 650 mg Amiodarone HCl (Cordarone -) 200 mg PO DAILY [facility] Last Admin: 10/12/18 09:48 Dose: 200 mg Apixaban (Eliquis -) 5 mg PO BID [facility] Last Admin: 10/12/18 09:48 Dose: 5 mg Aspirin (Ecotrin -) 81 mg PO DAILY [facility] Last Admin: 10/12/18 09:48 Dose: 81 mg Glimepiride (Amaryl -) 4 mg PO DAILY@0700 [facility] Last Admin: 10/12/18 06:32 Dose: 4 mg Hydrochlorothiazide (Hctz -) 25 mg PO DAILY [facility] Last Admin: 10/12/18 09:48 Dose: 25 mg Lactated Ringer's (Lactated Ringers Solution) 1,000 mls @ 75 mls/hr IV ASDIR [facility] Last Admin: 10/12/18 14:52 Dose: Not Given Latanoprost (Xalatan 0.005% Eye Drops -) 1 drop OS HS [facility] Last Admin: 10/11/18 21:23 Dose: 1 drop Levalbuterol HCl (Xopenex) 0.31 mg IH Q6H PRN PRN Reason: SHORTNESS OF BREATH Last Admin: 10/12/18 11:51 Dose: 0.31 mg Losartan Potassium (Cozaar -) 100 mg PO DAILY [facility] Last Admin: 10/12/18 09:47 Dose: 100 mg Metoprolol Succinate (Toprol Xl -) 50 mg PO DAILY [facility] Last Admin: 10/12/18 14:51 Dose: 50 mg Montelukast Sodium (Singulair -) 10 mg PO HS [facility] Last Admin: 10/11/18 21:23 Dose: 10 mg Pantoprazole Sodium (Protonix -) 40 mg PO DAILY [facility] Last Admin: 10/12/18 09:48 Dose: 40 mg - Objective Vital Signs: Vital Signs Temperature 97.6 F 10/12/18 15:13 Pulse Rate 64 10/12/18 15:13 Respiratory Rate 20 10/12/18 15:13 Blood Pressure 119/60 10/12/18 15:13 O2 Sat by Pulse Oximetry (%) 95 10/12/18 09:00 Labs: CBC, BMP 10/09/18 07:00 10/11/18 00:35 INR, PTT INR 1.36 (0.83-1.09) H 10/08/18 19:55 Problem List - Problems (1) Arrhythmia Code(s): I49.9 - CARDIAC ARRHYTHMIA, UNSPECIFIED Qualifiers: Arrhythmia type: other cardiac arrhythmia Qualified Code(s): I49.8 - Other specified cardiac arrhythmias (2) Cough Code(s): R05 - COUGH (3) Episodic lightheadedness Code(s): R42 - DIZZINESS AND GIDDINESS (4) CKD (chronic kidney disease) stage 3, GFR 30-59 ml/min Code(s): N18.3 - CHRONIC KIDNEY DISEASE, STAGE 3 (MODERATE) (5) High blood pressure Code(s): I10 - ESSENTIAL (PRIMARY) HYPERTENSION (6) Hyperlipidemia Code(s): E78.5 - HYPERLIPIDEMIA, UNSPECIFIED (7) Obesity (BMI 30-39.9) Code(s): E66.9 - OBESITY, UNSPECIFIED (8) Type 2 diabetes mellitus Code(s): E11.9 - TYPE 2 DIABETES MELLITUS WITHOUT COMPLICATIONS
--- NOTE | 2018-10-12 18:27 | DS ---
Physical Examination Vital Signs: Vital Signs Temperature 97.6 F 10/12/18 15:13 Pulse Rate 64 10/12/18 15:13 Respiratory Rate 20 10/12/18 15:13 Blood Pressure 119/60 10/12/18 15:13 O2 Sat by Pulse Oximetry (%) 95 10/12/18 09:00 Constitutional: Yes: No Distress HENT: Yes: Atraumatic Neck: Yes: Supple Cardiovascular: Yes: Regular Rate and Rhythm Respiratory: Yes: CTA Bilaterally Gastrointestinal: Yes: Normal Bowel Sounds Extremities: Yes: WNL Edema: No Peripheral Pulses WNL: Yes Neurological: Yes: Alert, Oriented Labs: CBC, BMP 10/09/18 07:00 10/11/18 00:35 Discharge Summary Reason For Visit: HISTORY OF ATRIAL FIBRILLATION Current Active Problems Arrhythmia (Acute) - Instructions Referrals: Marilyn Sidhu MD [Primary Care Provider] - - Home Medications Comprehensive Discharge Medication List: Ambulatory Orders Aspirin [ASA -] 81 mg PO DAILY 05/16/12 Montelukast Na [Singulair -] 10 mg PO HS 05/16/12 Amiodarone HCl [Cordarone -] 100 mg PO DAILY #1 11/22/12 Glimepiride [Amaryl -] 4 mg PO DAILY 09/27/13 Multivitamin [Multivitamins] 1 each PO DAILY 12/13/13 Levalbuterol HCl [Xopenex] 0.31 mg IH PRN PRN #0 vial.neb. 12/16/13 Bimatoprost [Lumigan] 1 drop OS HS 09/20/16 Garlic [Odorless Garlic] 1,000 mg PO DAILY 09/20/16 Losartan/Hydrochlorothiazide [Losartan-Hctz 100-25 mg Tab] 1 each PO DAILY 09/20 Esomeprazole Magnesium [Nexium 24Hr] 1 cap PO DAILY 06/12/18 Apixaban [Eliquis -] 5 mg PO BID #20 tablet 06/13/18 Metoprolol Succinate [Toprol XL -] 50 mg PO DAILY #30 tab.sr.24h 10/12/[address] amce next week
[2018-10-12 20:47] VITALS: BP 129/73; PULSE 60; TEMP 98
== END 2018-10-12 19:27 | disposition home or self-care (01) | DRG 243 ==
LOC: JER 06:17 → JERBED 13:12 → J4W 10-09 17:18
PROVIDERS: ADMIT Internal Medicine; ATTEND Internal Medicine
PROC: 0JH606Z Insertion of Pacemaker, Dual Chamber into Chest Subcutaneous Tissue and Fascia, Open Approach (ICD-10-PCS; principal; 2018-10-08)
PROC: 02HL3JZ Insertion of Pacemaker Lead into Left Ventricle, Percutaneous Approach (ICD-10-PCS; 2018-10-08)
DX: I49.5 Sick sinus syndrome (principal); I13.0 Hypertensive heart and chronic kidney disease with heart failure and stage 1 through stage 4 chronic kidney disease, or unspecified chronic kidney disease; I50.32 Chronic diastolic (congestive) heart failure; N18.3 Chronic kidney disease, stage 3 (moderate); E11.22 Type 2 diabetes mellitus with diabetic chronic kidney disease; E66.9 Obesity, unspecified; I48.0 Paroxysmal atrial fibrillation; J44.9 Chronic obstructive pulmonary disease, unspecified; J45.909 Unspecified asthma, uncomplicated; Z68.39 Body mass index [BMI] 39.0-39.9, adult; Z79.01 Long term (current) use of anticoagulants; K21.9 Gastro-esophageal reflux disease without esophagitis; K57.30 Diverticulosis of large intestine without perforation or abscess without bleeding; Z87.891 Personal history of nicotine dependence; E78.5 Hyperlipidemia, unspecified; Z86.73 Personal history of transient ischemic attack (TIA), and cerebral infarction without residual deficits
CPT/HCPCS: 36415; 71045-TC-FY; 76000-TC-FY; 80048; 80053; 82550; 82962; 83735; 84443; 84484; 85025; 85610; 86850; 86900; 86901; 87804; 93005; 93010; 94760; 99285-25; J0131

== ENCOUNTER 2019-02-18 17:46 | Emergency (ER) | payer MEDICARE, OTHER ==
[2019-02-18 18:53] VITALS: BP 162/66; PULSE 59; TEMP 98.2; BMI 27.4
--- NOTE | 2019-02-18 18:54 | PDOC ---
Rapid Medical Evaluation Chief Complaint: Pain, Acute Time Seen by Provider: 02/18/19 18:48 Medical Evaluation: Allergies Allergy/AdvReac Type Severity Reaction Status Date / Time shellfish derived Allergy Severe Swelling Verified 02/18/19 18:47 lactose Allergy Mild Verified 02/18/19 18:47 02/18/19 18:49 I have performed a brief in-person evaluation of this patient. The patient presents with a chief complaint of: h/o CVA 3 years ago uncomplicated present for evaluation of feeling of pressure to back of head radiating down to left side of neck yesterday while walking in the street yesterday which lasted for 5mins. Report no more symptoms after that. Denies any symptoms but wants to be evaluated due to h/o stroke Pertinent physical exam findings: A&O x 3 in NAD I have ordered the following: nothing The patient will proceed to the ED for further evaluation. Discharge Disposition - Diagnosis Pain - Discharge Dispostion Condition at time of disposition: Improved Decision to Admit order: No - Referrals - Patient Instructions - Post Discharge Activity
--- NOTE | 2019-02-18 19:23 | PDOC ---
History of Present Illness - General Chief Complaint: Pain, Acute Stated Complaint: PAIN Time Seen by Provider: 02/18/19 18:48 - History of Present Illness Initial Comments: 02/18/19 19:20 73-year-old lady with a past medical history significant for stroke presents for evaluation of a feeling she describes as "funny" which occurred yesterday for about a period of 5 minutes. She correlates the symptoms to the feeling she had prior to her stroke which was 12 years ago Past History - Past Medical History Allergies/Adverse Reactions: Allergies Allergy/AdvReac Type Severity Reaction Status Date / Time shellfish derived Allergy Severe Swelling Verified 02/18/19 18:47 lactose Allergy Mild Verified 02/18/19 18:47 Home Medications: Ambulatory Orders Aspirin [ASA -] 81 mg PO DAILY 05/16/12 Montelukast Na [Singulair -] 10 mg PO HS 05/16/12 Amiodarone HCl [Cordarone -] 100 mg PO DAILY #1 11/22/12 Glimepiride [Amaryl -] 4 mg PO DAILY 09/27/13 Multivitamin [Multivitamins] 1 each PO DAILY 12/13/13 Bimatoprost [Lumigan] 1 drop OS HS 09/20/16 Garlic [Odorless Garlic] 1,000 mg PO DAILY 09/20/16 Losartan/Hydrochlorothiazide [Losartan-Hctz 100-25 mg Tab] 1 each PO DAILY 09/20 Esomeprazole Magnesium [Nexium 24Hr] 1 cap PO DAILY 06/12/18 Apixaban [Eliquis -] 5 mg PO BID #20 tablet 06/13/18 Metoprolol Succinate [Toprol XL -] 50 mg PO DAILY #30 tab.sr.24h 10/12/18 Albuterol 0.083% Nebulizer Patricia [Ventolin 0.083%] 1 neb NEB Q4H PRN 02/18/19 Asthma: Yes Cardiac Disorders: Yes (intermittent atrial fibrillation) CVA: Yes (2006 no residual) COPD: Yes CHF: Yes Diabetes: Yes GI Disorders: Yes (diverticulitis, and GERD) Disorders: No HTN: Yes Hypercholesterolemia: Yes - Surgical History Abdominal Surgery: Yes (partial hysterectomy) Appendectomy: No Cholecystectomy: No - Immunization History Immunization Up to Date: Yes - Suicide/Smoking/Psychosocial Hx Smoking Status: Yes Smoking History: Unknown if ever smoked Have you smoked in the past 12 months: No Number of Cigarettes Smoked Daily: 0 If you are a former smoker, when did you quit?: Over 45 years ago Hx Alcohol Use: No Drug/Substance Use Hx: No Substance Use Type: None Hx Substance Use Treatment: No Review of Systems - Review of Systems Constitutional: Yes: See HPI Neurological: Yes: See HPI. 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 *DC/Admit/Observation/Transfer Diagnosis at time of Disposition: Dizziness Diagnosis at time of Disposition: (Ruled Out): Pain - Discharge Dispostion Condition at time of disposition: Improved - Referrals - Patient Instructions - Post Discharge Activity
[2019-02-18] MEDS ORDERED: SODIUM CHLORIDE 1,000 ML IV SCH (19:30)
[2019-02-18 22:28] LABS: URINE APPEARANCE CLEAR; URINE BILIRUBIN NEGATIVE (NEGATIVE); URINE COLOR YELLOW; URINE GLUCOSE (UA) NEGATIVE (NEGATIVE); URINE KETONE NEGATIVE (NEGATIVE); URINE LEUK ESTERASE NEGATIVE (NEGATIVE); URINE NITRITE NEGATIVE (NEGATIVE); URINE PROTEIN NEGATIVE (NEGATIVE); URINE UROBILINOGEN 0.2 mg/dL (0.2-1.0)
[2019-02-18 22:46] LABS: BASO % 0.9 % (0-2.0); EOS % 3.5 % (0-4.5); HEMOGLOBIN 12.8 GM/dL (10.7-15.3); LYMPH % 28.4 % (8-40); MCH 30.2 pg (25.7-33.7); MEAN CELL VOLUME 94.2 fl (80-96); MEAN PLT VOLUME 8.5 fl (7.5-11.1); MONO % 10.9 % (3.8-10.2); NEUT % 56.3 % (42.8-82.8); PLATELET COUNT 207 K/MM3 (134-434); RBC 4.25 M/mm3 (3.60-5.2); RDW 14.6 % (11.6-15.6); WHITE BLOOD COUNT 7.7 K/mm3 (4.0-10.0)
--- NOTE | 2019-02-18 22:48 | PDOC ---
History of Present Illness - General Chief Complaint: Pain, Acute Stated Complaint: PAIN Time Seen by Provider: 02/18/19 18:48 History Source: Patient Exam Limitations: No Limitations - History of Present Illness Initial Comments: 02/18/19 22:46 73 yo F history HTN, DM, HL, CHF, paroxysmal afib, asthma and CVA (8 years ago, on eliquis, no statin) presents to the ED after having a strange feeling at the back of her head yesterday. The strange feeling is described as fingers running at the back of her head, lasted 5 min, resolved, denies DIAZ, changes in vision/ speech, N/V, weakness/sensory changes, confusion. Past History - Past Medical History Allergies/Adverse Reactions: Allergies Allergy/AdvReac Type Severity Reaction Status Date / Time shellfish derived Allergy Severe Swelling Verified 02/18/19 18:47 lactose Allergy Mild Verified 02/18/19 18:47 Home Medications: Ambulatory Orders Aspirin [ASA -] 81 mg PO DAILY 05/16/12 Montelukast Na [Singulair -] 10 mg PO HS 05/16/12 Amiodarone HCl [Cordarone -] 100 mg PO DAILY #1 11/22/12 Glimepiride [Amaryl -] 4 mg PO DAILY 09/27/13 Multivitamin [Multivitamins] 1 each PO DAILY 12/13/13 Bimatoprost [Lumigan] 1 drop OS HS 09/20/16 Garlic [Odorless Garlic] 1,000 mg PO DAILY 09/20/16 Losartan/Hydrochlorothiazide [Losartan-Hctz 100-25 mg Tab] 1 each PO DAILY 09/20 Esomeprazole Magnesium [Nexium 24Hr] 1 cap PO DAILY 06/12/18 Apixaban [Eliquis -] 5 mg PO BID #20 tablet 06/13/18 Metoprolol Succinate [Toprol XL -] 50 mg PO DAILY #30 tab.sr.24h 10/12/18 Albuterol 0.083% Nebulizer Patricia [Ventolin 0.083%] 1 neb NEB Q4H PRN 02/18/19 Asthma: Yes Cardiac Disorders: Yes (intermittent atrial fibrillation) CVA: Yes (2006 no residual) COPD: Yes CHF: Yes Diabetes: Yes GI Disorders: Yes (diverticulitis, and GERD) Disorders: No HTN: Yes Hypercholesterolemia: Yes - Surgical History Abdominal Surgery: Yes (partial hysterectomy) Appendectomy: No Cholecystectomy: No - Immunization History Immunization Up to Date: Yes - Suicide/Smoking/Psychosocial Hx Smoking Status: Yes Smoking History: Unknown if ever smoked Have you smoked in the past 12 months: No Number of Cigarettes Smoked Daily: 0 If you are a former smoker, when did you quit?: Over 45 years ago Hx Alcohol Use: No Drug/Substance Use Hx: No Substance Use Type: None Hx Substance Use Treatment: No Review of Systems - Review of Systems Constitutional: No: Chills, Fever HEENTM: No: Blurred Vision, Double Vision Respiratory: No: Shortness of Breath Cardiac (ROS): No: Chest Pain, Edema, Lightheadedness, Palpitations ABD/GI: No: Constipated, Diarrhea, Nausea, Vomiting, Abdominal cramping : No: Burning, Dysuria, Discharge, Frequency, Flank Pain Musculoskeletal: No: Back Pain, Muscle Weakness, Neck Pain Integumentary: No: Pallor, Rash Neurological: No: Headache, Numbness, Tingling, Weakness, Unsteady Gait, Ataxia , Dizziness *Physical Exam - Vital Signs Last Vital Signs Temp Pulse Resp BP Pulse Ox 98.2 F 59 L 18 162/66 98 02/18/19 18:50 02/18/19 18:50 02/18/19 18:50 02/18/19 18:50 02/18/19 18:50 - Physical Exam General Appearance: Yes: Nourished, Appropriately Dressed. No: Apparent Distress HEENT: positive: EOMI, MARTI, Normal Voice, Hearing Grossly Normal. negative: Photophobia Neck: positive: Supple. negative: Carotid bruit, Tender midline Respiratory/Chest: positive: Lungs Clear, Normal Breath Sounds. negative: Accessory Muscle Use, Rapid RR, Crackles, Rales, Rhonchi, Stridor, Wheezing Cardiovascular: positive: Regular Rhythm, Regular Rate, S1, S2. negative: Edema , JVD, Murmur Vascular Pulses: Dorsalis-Pedis (R): 4+, Doralis-Pedis (L): 4+ Gastrointestinal/Abdominal: positive: Flat, Soft. negative: Pulsatile Mass, Protuberent, Distended, Guarding, Rebound, Tenderness Musculoskeletal: positive: Normal Inspection. 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 negative: Facial Droop, Numbness, Sensory Deficit, Finger to Nose (normal), Confused, Disoriented ED Treatment Course - LABORATORY CBC & Chemistry Diagram: 02/18/19 22:38 02/18/19 22:38 - ADDITIONAL ORDERS Additional order review: Laboratory Results 02/18/19 22:22 Urine Color Yellow Urine Appearance Clear Urine pH 5.0 Ur Specific [place] 1.009 L Urine Protein Negative Urine Glucose (UA) Negative Urine Ketones Negative Urine Blood Negative Urine Nitrite Negative Urine Bilirubin Negative Urine Urobilinogen 0.2 Ur Leukocyte Esterase Negative Medical Decision Making - Medical Decision Making 73 yo F history HTN, DM, HL, CHF, paroxysmal afib, asthma and CVA (8 years ago, on eliquis, no statin) presents to the ED after having a strange feeling at the back of her head yesterday. The strange feeling is described as fingers running at the back of her head, lasted 5 min, resolved, denies DIAZ, changes in vision/ speech, N/V, weakness/sensory changes, confusion. Vitals WNL EKG NSR without acute change since most recent EKG, no CP, SOB NAD, ambulates without difficulty Neuro exam wnl, no focal deficits DDX INLT: CVA, TIA, electrolyte ab, anemia Head CT shows no acute path cbc and cmp wnl cholesterol elevated. Pt not on statin due to adverse rxn. Advised to bring results of blood work to PCP and Neurology to discuss trop .06, hx of minor trop elevation, non concerning for ACS pt is safe for DC home with Neurology and PCP f/u no acute stroke or residual deficits at this time. Strict return precautions given Pt understands plan *DC/Admit/Observation/Transfer Diagnosis at time of Disposition: Dizziness - Discharge Dispostion Disposition: HOME Condition at time of disposition: Stable Decision to Admit order: No - Referrals Referrals: Rocky Myers MD [Staff Physician] - - Patient Instructions Additional Instructions: Please see your Primary Doctor within the next 48 hours and call to make an appointment with the Neurologist referred to you. Continue taking your home dosed medications as prescribed. Return to the ER for new or concerning symptoms including but not limited to: headaches. changes in vision or speech, weakness on 1 side of your body. Thank you - Post Discharge Activity
[2019-02-18 23:10] LABS: ALBUMIN 3.6 g/dl (3.4-5.0); BILIRUBIN,TOTAL 0.4 mg/dL (0.2-1); CALCIUM 9.2 mg/dL (8.5-10.1); CREATININE 0.8 mg/dL (0.55-1.3); POTASSIUM 3.4 mmol/L (3.5-5.1); TOT PROT 7.5 g/dl (6.4-8.2)
[2019-02-18 23:24] LABS: INR 1.22 (0.83-1.09); PROTHROMBIN TIME (PATIENT) 14.4 SEC (9.7-13.0)
--- NOTE | 2019-02-19 13:33 | EKG ---
Test Reason : Blood Pressure : / mmHG Vent. Rate : 060 BPM Atrial Rate : 060 BPM P-R Int : 194 ms QRS Dur : 096 ms QT Int : 472 ms P-R-T Axes : 000 -19 035 degrees QTc Int : 472 ms Atrial-paced rhythm ABNORMAL ECG WHEN COMPARED WITH ECG OF 08-OCT-2018 16:33, ELECTRONIC ATRIAL PACEMAKER HAS REPLACED ATRIAL FIBRILLATION VENT. RATE HAS DECREASED BY 59 BPM NONSPECIFIC T WAVE ABNORMALITY NOW EVIDENT IN ANTERIOR LEADS Confirmed by MD PEDRO LUIS, MELANI ([id number]) on 02/19/2019 1:33:09 PM Referred By: Confirmed By:MELANI CLOUD MD
== END 2019-02-19 00:10 | disposition home or self-care (01) ==
LOC: JERFT 17:46 → JER 17:46
DX: R42 Dizziness and giddiness (principal); I25.10 Atherosclerotic heart disease of native coronary artery without angina pectoris; I11.0 Hypertensive heart disease with heart failure; I50.9 Heart failure, unspecified; I48.91 Unspecified atrial fibrillation; Z79.01 Long term (current) use of anticoagulants; E11.9 Type 2 diabetes mellitus without complications; Z79.84 Long term (current) use of oral hypoglycemic drugs; J44.9 Chronic obstructive pulmonary disease, unspecified; J45.909 Unspecified asthma, uncomplicated; K21.9 Gastro-esophageal reflux disease without esophagitis; Z86.73 Personal history of transient ischemic attack (TIA), and cerebral infarction without residual deficits
CPT/HCPCS: 36415; 70450-TC; 80053; 81003; 82465; 82550; 83718; 83721; 84478; 84484; 85025; 85610; 93005; 93010; 99282-25

== ENCOUNTER 2019-05-27 05:44 | Emergency (ER) | payer MEDICARE, OTHER ==
[2019-05-27 06:08] VITALS: BMI 39.5
[2019-05-27 06:44] VITALS: BP 127/83; PULSE 60; TEMP 98
--- NOTE | 2019-05-27 07:09 | PDOC ---
History of Present Illness - General Chief Complaint: Shortness of Breath Stated Complaint: S.O.B. Time Seen by Provider: 05/27/19 07:08 History Source: Patient Exam Limitations: No Limitations - History of Present Illness Initial Comments: Pt is a 74 yo F, with PMH of HTN, HLD, DM, dCHF (severe TR), prior pAFib (now has pacemaker Oct 2018, on Eliquis and toprol), CVA, and asthma, who is presenting with complaints of generalized fatigue and palpitations when she got out of bed this morning. Pt states she has had exertional SOB and b/l LE edema over the past few days after eating fried chicken. Pt endorses medication compliance. Pt states she was concerned this AM because she felt similar to when she gets paroxysmal Afib. Pt denies any recent fevers/chills, headache, vision changes, syncope, chest pain, cough, nausea/vomiting, abdominal pain, urinary symptoms, diarrhea/constipation. Allergies: NKDA PCP: Celi Armijo: Deborah Cards: [place] Social: Pt denies any cigarette, alcohol, or drug use. Pt denies any recent travel or sick contacts. Surgical: pacemaker, as above Family: no relevant history. 05/27/19 07:45 05/27/19 07:53 Past History - Travel Traveled outside of the country in the last 30 days: No Close contact w/someone who was outside of country & ill: No - Past Medical History Allergies/Adverse Reactions: Allergies Allergy/AdvReac Type Severity Reaction Status Date / Time shellfish derived Allergy Severe Swelling Verified 05/27/19 05:57 lactose Allergy Mild Verified 05/27/19 05:57 Home Medications: Ambulatory Orders Aspirin [ASA -] 81 mg PO DAILY 05/16/12 Montelukast Na [Singulair -] 10 mg PO HS 05/16/12 Amiodarone HCl [Cordarone -] 100 mg PO DAILY #1 11/22/12 Glimepiride [Amaryl -] 4 mg PO DAILY 09/27/13 Multivitamin [Multivitamins] 1 each PO DAILY 12/13/13 Bimatoprost [Lumigan] 1 drop OS HS 09/20/16 Garlic [Odorless Garlic] 1,000 mg PO DAILY 09/20/16 Losartan/Hydrochlorothiazide [Losartan-Hctz 100-25 mg Tab] 1 each PO DAILY 09/20 Esomeprazole Magnesium [Nexium 24Hr] 1 cap PO DAILY 06/12/18 Apixaban [Eliquis -] 5 mg PO BID #20 tablet 06/13/18 Albuterol 0.083% Nebulizer Patricia [Ventolin 0.083%] 1 neb NEB Q4H PRN 02/18/19 Asthma: Yes Cardiac Disorders: Yes (intermittent atrial fibrillation) CVA: Yes (2006 no residual) COPD: Yes CHF: Yes Diabetes: Yes GI Disorders: Yes (diverticulitis, and GERD) Disorders: No HTN: Yes Hypercholesterolemia: Yes - Surgical History Abdominal Surgery: Yes (partial hysterectomy) Appendectomy: No Cholecystectomy: No - Immunization History Td Vaccination: Yes TDAP Vaccination: Yes Immunization Up to Date: Yes - Suicide/Smoking/Psychosocial Hx Smoking Status: Yes Smoking History: Never smoked Have you smoked in the past 12 months: No Number of Cigarettes Smoked Daily: 0 If you are a former smoker, when did you quit?: Over 45 years ago Information on smoking cessation initiated: No Hx Alcohol Use: No Drug/Substance Use Hx: No Substance Use Type: None Hx Substance Use Treatment: No Review of Systems - Review of Systems Able to Perform ROS?: Yes Is the patient limited Serbian proficient: No Constitutional: Yes: Malaise, Weight Stable. No: Chills, Diaphoresis, Fever, Loss of Appetite, Weakness HEENTM: No: Blurred Vision, Double Vision, Nose Congestion, Throat Pain, Throat Swelling Respiratory: Yes: Shortness of Breath, SOB with Exertion. No: Cough, Orthopnea , SOB at Rest, Wheezing, Productive cough, Hemoptysis Cardiac (ROS): Yes: Irregular Heart Rate, Palpitations. No: Chest Pain, Edema, Lightheadedness, Syncope, Chest Tightness ABD/GI: No: Constipated, Diarrhea, Nausea, Poor Appetite, Poor Fluid Intake, Rectal Bleeding, Vomiting, Abdominal cramping : Yes: Frequency (urinating frequently and "drinking lots of water"). No: Burning, Dysuria, Flank Pain, Hematuria, Pain, Urgency Musculoskeletal: No: Back Pain, Joint Pain, Muscle Pain, Muscle Weakness Integumentary: No: Rash Neurological: No: Headache, Numbness, Paresthesia, Weakness, Unsteady Gait, Ataxia, Dizziness Psychiatric: No: Sleep Pattern Change, Change in Appetite Endocrine: No: Increased Urine, Change in Weight Hematologic/Lymphatic: Yes: Blood Clots (CVA). No: Anemia, Easy Bleeding, Easy Bruising All Other Systems: Reviewed and Negative *Physical Exam - Vital Signs Last Vital Signs Temp Pulse Resp BP Pulse Ox 98 F 60 19 127/83 100 05/27/19 06:00 05/27/19 06:00 05/27/19 06:00 05/27/19 06:00 05/27/19 06:00 - Physical Exam Comments: Vitals stable, pt afebrile. Pt in NAD, lying comfortably on the bed. Morbidly obese body habitus. Pt alert and oriented x3. 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 Cerebellar exam WNL. No midline spinal tenderness, step-offs, or crepitus. Head normocephalic, atraumatic. Eyes PERRLA, EOMI. Oropharynx without erythema or exudates, no LAD b/l. No nasal congestion, hearing intact. +b/l pitting edema to mid shins. Clear heart sounds, S1/S2, no JVD, or heart murmur. Lung sounds diminished b/l lower bases, also affected by body habitus. No wheezes, crackles, or accessory muscle use. No abdominal or CVA tenderness to palpation, no rebound, no guarding. Abdomen soft, non-distended, and with normoactive bowel sounds. Skin without jaundice or rash. 05/27/19 07:52 ED Treatment Course - LABORATORY CBC & Chemistry Diagram: 05/27/19 07:35 05/27/19 07:35 Medical Decision Making - Medical Decision Making Pt was seen at bedside, also will be seen by attending Dr. Rose. Pt presenting with complaints of generalized fatigue, palpitations, and SOB since this morning. Pt has noticed b/l LE edema and SOB with exertion over the past few days after eating fried chicken and salty food. Severely diminished breath sounds b/l posterior bases and LE pitting edema. Will evaluate with labs, EKG, chest x-ray. Likely CHF exacerbation vs electrolyte imbalances vs arrhythmia vs infectious (pneumonia) vs anemia. Will continue to reassess pt and monitor for symptomatic improvement. ECG: Atrial paced rhythm (HR 60, CT 206, QRS 94, QTc 460). No TWIs or significant ST segment changes. No significant changes from prior ECG (02/18/2019 ). 05/27/19 07:40 Labs WNL Trop .05, no EKG changes X-ray with no acute pathology Providing 20 mg IV lasix (home dose) with dc to home. Pt admits to missing her last 2 doses of lasix. Pt can f/u with PCP and admissions coordinator. Advised compliance with home meds. Strict return precautions provided with pt understanding. 05/27/19 08:54 *DC/Admit/Observation/Transfer Diagnosis at time of Disposition: SOB (shortness of breath), Nonadherence to medication, Leg swelling - Discharge Dispostion Disposition: HOME Condition at time of disposition: Improved Decision to Admit order: No - Referrals Referrals: Marilyn Sidhu MD [Primary Care Provider] - Juan Mesa MD [Staff Physician] - - Patient Instructions Printed Discharge Instructions: DI for Peripheral Edema -- Bilateral Additional Instructions: You were seen in the ER today for shortness of breath and leg swelling. The results of your labs and imaging today were normal, and we provided you with lasix. Please continue to take all of your home medications as prescribed. Please follow-up with your primary care doctor and admissions coordinator within 1-2 days to discuss your visit and make sure your symptoms have improved. Please return to the ER if you have any worsening pain, development of fevers or chills, loss of consciousness, inability to tolerate food or fluids, or any other concerns. - Post Discharge Activity
[2019-05-27 07:52] LABS: VENOUS PC02 51.4 mmHg (38-52); VENOUS PH 7.39 (7.31-7.41)
[2019-05-27 07:55] LABS: VENOUS PO2 < 49 mmHg (28-48)
[2019-05-27 07:58] LABS: EOS % 6.9 % (0-4.5); HEMATOCRIT 37.7 % (32.4-45.2); HEMOGLOBIN 12.5 GM/dL (10.7-15.3); MCH 30.5 pg (25.7-33.7); MCHC 33.1 g/dl (32.0-36.0); MEAN CELL VOLUME 92.2 fl (80-96); MEAN PLT VOLUME 8.5 fl (7.5-11.1); MONO % 12.3 % (3.8-10.2); NEUT % 56.8 % (42.8-82.8); PLATELET COUNT 221 K/MM3 (134-434); RBC 4.09 M/mm3 (3.60-5.2); RDW 14.6 % (11.6-15.6); WHITE BLOOD COUNT 6.9 K/mm3 (4.0-10.0)
[2019-05-27 08:01] LABS: PH,URINE 6.5 (5.0-8.0); URINE APPEARANCE CLEAR; URINE BILIRUBIN NEGATIVE (NEGATIVE); URINE COLOR YELLOW; URINE GLUCOSE (UA) NEGATIVE (NEGATIVE); URINE KETONE NEGATIVE (NEGATIVE); URINE LEUK ESTERASE NEGATIVE (NEGATIVE); URINE NITRITE NEGATIVE (NEGATIVE); URINE PROTEIN NEGATIVE (NEGATIVE); URINE UROBILINOGEN 0.2 mg/dL (0.2-1.0)
[2019-05-27 08:40] LABS: ALBUMIN 3.3 g/dl (3.4-5.0); BILIRUBIN,TOTAL 0.2 mg/dL (0.2-1); BLOOD UREA NITROGEN 20.6 mg/dL (7-18); CALCIUM 9.3 mg/dL (8.5-10.1); CREATININE 1.2 mg/dL (0.55-1.3); MAGNESIUM 2.3 mg/dL (1.8-2.4); N-TERMINAL BNP 681.6 pg/ml (5-125); POTASSIUM 3.8 mmol/L (3.5-5.1)
[2019-05-27] MEDS ORDERED: FUROSEMIDE 40 MG/4 ML INJECTABLE VIAL IVPUSH ONE (08:48)
--- NOTE | 2019-05-27 08:55 | PDOC ---
Attending Attestation - Resident Resident Name: Nina Navarro - ED Attending Attestation I have performed the following: I have examined & evaluated the patient, The case was reviewed & discussed with the resident, I agree w/resident's findings & plan, Exceptions are as noted - HPI HPI: 05/27/19 09:48 Reviewed Residents HPI - Physicial Exam PE: 05/27/19 09:49 Reviewed Residents PE - Medical Decision Making 05/27/19 09:49 4 years old with hypertension pacemaker CHF noncompliant with her Lasix presents to the ED with 2 day history of mild dyspnea on exertion EKG demonstrates atrial paced rhythm Troponin negative Patient is well-appearing no apparent distress stable vital signs creatinine within normal limits negative troponin slightly elevated BNP patient safe for outpatient follow-up we'll advise her to take her Lasix as prescribed Findings, need for follow-up and strict return instructions discussed with patient.
[2019-05-27 09:04] LABS: INR 1.25 (0.83-1.09); PROTHROMBIN TIME (PATIENT) 14.8 SEC (9.7-13.0)
[2019-05-27 09:07] LABS: ACTIVATED PTT 41.5 SECONDS (25.2-36.5)
[2019-05-27] MEDS ORDERED: FUROSEMIDE 40 MG/4 ML INJECTABLE VIAL ONE (09:37)
--- NOTE | 2019-05-27 12:55 | EKG ---
Test Reason : Blood Pressure : / mmHG Vent. Rate : 060 BPM Atrial Rate : 060 BPM P-R Int : 206 ms QRS Dur : 094 ms QT Int : 460 ms P-R-T Axes : 084 -15 021 degrees QTc Int : 460 ms Atrial-paced rhythm MINIMAL VOLTAGE CRITERIA FOR LVH, MAY BE NORMAL VARIANT ABNORMAL ECG WHEN COMPARED WITH ECG OF 18-FEB-2019 23:46, NO SIGNIFICANT CHANGE WAS FOUND Confirmed by BIRGIT ANGELO, KEILY ([id number]) on 05/27/2019 12:54:45 PM Referred By: Confirmed By:KEILY GENAO MD
== END 2019-05-27 10:02 | disposition home or self-care (01) ==
LOC: JER 05:44
PROC: 3E033GC Introduction of Other Therapeutic Substance into Peripheral Vein, Percutaneous Approach (ICD-10-PCS; principal; 2019-05-27)
DX: R60.0 Localized edema (principal); R06.02 Shortness of breath; I11.0 Hypertensive heart disease with heart failure; I50.30 Unspecified diastolic (congestive) heart failure; J45.909 Unspecified asthma, uncomplicated; J44.9 Chronic obstructive pulmonary disease, unspecified; E78.00 Pure hypercholesterolemia, unspecified; Z86.73 Personal history of transient ischemic attack (TIA), and cerebral infarction without residual deficits; K21.9 Gastro-esophageal reflux disease without esophagitis; Z79.01 Long term (current) use of anticoagulants; Z95.0 Presence of cardiac pacemaker; Z91.14 Patient's other noncompliance with medication regimen
CPT/HCPCS: 36415; 71045-TC-FY; 80053; 81003; 82550; 82803; 83735; 83880; 84484; 85025; 85610; 85730; 87086; 93005; 93010; 96374; 99284-25